=== PATIENT | female | born 1965 | race Caucasian/White ===

== ENCOUNTER 2022-02-27 13:31 | Outpatient (CLI) | payer OTHER, MEDICAID, SELFPAY ==
[2022-02-27 17:22] LABS: Albumin* 3.6 g/dL (3.3-5.0)
[2022-02-27 17:25] LABS: Aspartate Amino Transferase* 27 U/L (12-35); Bilirubin Direct* 0.4 mg/dL (0.0-0.5); Bilirubin Total* 0.5 mg/dL (0.1-1.5); Magnesium* 1.8 mg/dL (1.5-2.6); Total Protein* 5.7 g/dL (6.0-8.3)
[2022-02-27 17:26] LABS: Alanine Aminotransferase* 22 U/L (4-35); Alkaline Phosphatase* 89 U/L (40-150)
[2022-02-27 18:08] LABS: Thyroid Stimulating Hormone* 0.305 uIU/mL (0.270-4.20)
[2022-02-27 18:17] LABS: Vitamin B12* 628 pg/mL (243-894)
[2022-03-03 00:40] LABS: Copper, Serum/Plasma 140.8 ug/dL (80.0-155.0)
[2022-03-03 19:46] LABS: Vitamin K1 1.44 nmol/L (0.22-4.88)
[2022-03-03 22:02] LABS: Vitamin A (Retinol) 0.62 mg/L (0.30-1.20)
[2022-03-05 13:47] LABS: Folate, RBC 1051 ng/mL (>=366)
--- OUTSIDE RECORDS SUMMARY | 2022-03-27 09:21 | XMS_ITS | Continuity of Care Document ---
:1965 Author Organization [facility] ue Address [address] [place] [id number]- Encounter 02/13/22 - 02/14/[address] [address]- Discharge Disposition: Discharged to Home or Self Care Attending Physician: Femi Davis MD Allergies, Adverse Reactions, Alerts Substance Reaction Severity Status morphine1 hives Active Keflex Hives Active 1Per patient, has tolerated Lortab before Assessment and Plan Extracted from: Title: Admission H & P Author: Femi Davis MD Date: 02/14/22 ? #Acute on chronic??hypoxemic??respirato ry failure due to??COPD/emphysema exacerbation -Patient requiring 2 L??and was weaned by emergency room physician??and still had persistent hypoxemia with??saturations??of 88% -Patient reportedly is on 2 L only with activity -Alkalosis noted??and ABG ordered??as h er bicarb was little bit elevated -Patient reportedly was in the middle o f a steroid taper and on a Z-Rafal that she finished -At this time we will start 4 times raheem ly scheduled nebs plus every 4 as needed nebs status post methylprednisolone 125 mg in the??emergency room...??We will start 40 mg??prednisone twice daily -Doxycycline added -Also added??guaifenesin and??Tessalon Perles??scheduled??as well as??azelastine/benzonatate/Claritin -We will get Dr. Resendiz involved as she has pretty advanced??emphysema ?? #History of PE -Continue Xarelto #Hypertension -Pressures appear pretty reasonable -Continue carvedilol at this time -Continue lisinopril -Continue Lasix??for blood pressure and edema control ?? #Chronic pain -Continue cyclobenzaprine and??gabapent in ?? #Psych not otherwise specified -Continue??Abilify/trazodone/duloxetine ?? Diet: ?02/13/22 22:25:00 CDT, Reg ular, Routine GI prophylaxis:??PPI DVT prophylaxis: Xarelto Dispo:??Observation ? Medications albuterol 2.5 mg/3 mL (0.083%) inhalation solution Take 3 mL, Nebul, Q6h, PRN Shortness of Breath Start Date: 02/14/22 Status: Orderedalbuterol HFA 108 mcg/inh inhalation aerosol Take 2 Puff, Inhalation, Q4h, PRN Shortness of Breath Start Date: 02/14/22 Status: OrderedARIPiprazole 10 mg oral tablet Take 0.5 Tab, PO, BID Start Date: 02/14/22 Status: Orderedcarvedilol 3.125 mg oral tablet Take 1 Tab, PO, BID Start Date: 02/14/22 Status: Orderedcyanocobalamin 1000 mcg/ml injectable solution 1,000 mcg, IM, Month ([id number]) Start Date: 02/14/22 Status: Orderedcyclobenzaprine 5 mg oral tablet Take 1 Tab, PO, Bedtime, PRN Muscle Spasms Start Date: 02/14/22 Status: OrderedDaliresp 250 mcg oral tablet Take 1 Tab, PO, QOther Day Start Date: 02/14/22 Status: Ordereddoxycycline hyclate 100 mg oral capsule Take 1 Cap, PO, BID, Started during hospital stay., X 6 Day(s), # 12 Cap, 0 Refill(s), Pharmacy: [facility] #[id number], 172.72, cm, 02/14/22 0:06:00 CDT, Height, 116, kg, 02/14/22 0:06:00 CDT, Weight Start Date: 02/14/22 Stop Date: 02/20/22 Status: OrderedDULoxetine 60 mg oral delayed release capsule Take 1 Cap, PO, BID Start Date: 02/14/22 Status: Orderedfluticasone nasal 0.05 mg/inh spray 2 Henning, Nasal, Daily Start Date: 02/14/22 Status: Orderedfurosemide 20 mg oral tablet Take 1 Tab, PO, Daily Start Date: 02/14/22 Status: Orderedgabapentin 300 mg oral capsule Take 4 Cap, PO, TID Start Date: 02/14/22 Status: OrderedguaiFENesin 600 mg oral tablet, extended release Take 1 Tab, PO, Q12h, Started during hospital stay., X 6 Day(s), # 12 Tab, 0 Refill(s), Pharmacy: [facility] #[id number], 172.72, cm, 02/14/22 0:06:00 CDT, Height, 116, kg, 02/14/22 0:06:00 CDT, Weight Start Date: 02/14/22 Stop Date: 02/20/22 Status: Orderedlisinopril 2.5 mg oral tablet Take 1 Tab, PO, Daily Start Date: 02/14/22 Status: Orderedloratadine 10 mg oral tablet Take 1 Tab, PO, Daily Start Date: 02/14/22 Status: Orderedpramipexole 0.25 mg oral tablet Take 1 Tab, PO, w/bkfst+din Start Date: 02/14/22 Status: Orderedpramipexole 0.75 mg oral tablet Take 1 Tab, PO, Bedtime Start Date: 02/14/22 Status: OrderedpredniSONE 10 mg oral tablet See Instructions, 3 po bid with meals x 4 day, 4 po q am x 4 day, 3 po q amx 4 day , 2 po q am x 4 day, 1 po q am x 4 day, stop, # 64 Tab, 0 Refill(s) Start Date: 02/14/22 Status: Orderedrosuvastatin 5 mg oral tablet Take 1 Tab, PO, Daily Start Date: 02/14/22 Status: OrderedtraZODone 50 mg oral tablet Take 1 Tab, PO, Bedtime, PRN Insomnia/Sleep Start Date: 02/14/22 Status: OrderedTrelegy Ellipta 200 mcg-62.5 mcg-25 mcg/inh inhalation powder 1 Puff, Inhalation, Daily Start Date: 02/14/22 Status: OrderedXarelto 20 mg oral tablet Take 1 Tab, PO, Daily Start Date: 02/14/22 Status: Ordered Mental Status 02/14/22 Level of Consciousness-CAM Alert Orientation-CAM Oriented x 4 Cognitive-CAM Able to follow 3 step comman ds Memory-CAM Intact/Present Behavior/Mood/Affect-CAM Appropriate, Calm, Cooperative Problem List Condition Effective Dates Status Health Status Informant Chronic obstructive pulmonary disease Active (COPD)(Confirmed) Diagnosis Diagnosis Type Effective Dates Health Status Clinical In formant Service At risk for Working 02/14/22 Non-Specified falls Diagnosis Results Laboratory List Name Date Basic Metabolic Panel (BMP (Basic Metabolic Panel)) CBC with Differential 02/14/22 Respiratory Pathogen Panel PCR with COVID-19 (Respirat ory Pathogen Panel PCR 02/13/22 with COVI) Comprehensive Metabolic Panel (CMP (Comprehensive [place] bolic Panel)) 02/13/22 Prothrombin Time (PT w INR) 02/13/22 Sodium Level Most recent to oldest [Reference Range]: 1 Sodium Level [135-145 mEq/L] 139 mEq/L (02/14/22 4:55 AM) Potassium Level Most recent to oldest [Reference Range]: 1 Potassium Level [3.5-5.0 mEq/L] 4.0 mEq/L (02/14/22 4:55 AM) Chloride Level Most recent to oldest [Reference Range]: 1 Chloride Level [100-108 mEq/L] 101 mEq/L (02/14/22 4:55 AM) Carbon Dioxide Level Most recent to oldest [Reference Range]: 1 Carbon Dioxide Level [22-32 mEq/L] 31 mEq/L (02/14/22 4:55 AM) BUN Most recent to oldest [Reference Range]: 1 BUN [10-26 mg/dL] 8 mg/dL *LOW* (02/14/22 4:55 AM) Creatinine Most recent to oldest [Reference Range]: 1 Creatinine [0.4-1.4 mg/dL] 0.5 mg/dL (02/14/22 4:55 AM) Calcium Total Most recent to oldest [Reference Range]: 1 Calcium Total [8.5-10.5 mg/dL] 9.3 mg/dL (02/14/22 4:55 AM) Glucose Level Most recent to oldest [Reference Range]: 1 Glucose Level [70-99 mg/dL] 174 mg/dL *HI* (02/14/22 4:55 AM) Protein Most recent to oldest [Reference Range]: 1 Protein [6.0-8.0 gm/dL] 6.7 gm/dL (02/13/22 8:15 PM) Albumin Level Most recent to oldest [Reference Range]: 1 Albumin Level [3.3-5.2 gm/dL] 3.6 gm/dL (02/13/22 8:15 PM) Bilirubin Total Most recent to oldest [Reference Range]: 1 Bilirubin Total [0.3-1.2 mg/dL] 0.3 mg/dL (02/13/22 8:15 PM) ALT/SGPT Most recent to oldest [Reference Range]: 1 ALT/SGPT [11-54 IU/L] 20 IU/L (02/13/22 8:15 PM) AST/SGOT Most recent to oldest [Reference Range]: 1 AST/SGOT [11-41 IU/L] 23 IU/L (02/13/22 8:15 PM) Alkaline Phosphatase Most recent to oldest [Reference Range]: 1 Alkaline Phosphatase [30-107 IU/L] 82 IU/L (02/13/22 8:15 PM) WBC Count Most recent to oldest [Reference Range]: 1 WBC Count [3.7-11.0 thou/mcL] 5.6 thou/mcL (02/14/22 4:55 AM) Hemoglobin Most recent to oldest [Reference Range]: 1 Hemoglobin [11.7-16.0 gm/dL] 13.8 gm/dL (02/14/22 4:55 AM) Hematocrit Most recent to oldest [Reference Range]: 1 Hematocrit [35-47 %] 43 % (02/14/22 4:55 AM) Platelet Count Most recent to oldest [Reference Range]: 1 Platelet Count [150-400 thou/mcL] 183 thou/mcL (02/14/22 4:55 AM) Prothrombin Time (PT) Most recent to oldest [Reference Range]: 1 Prothrombin Time (PT) [9.4-12.5 Sec] 11.5 Sec 1 (02/13/22 8:15 PM) 1Result Comment: Test Comment: Anticoagulant: NINR Most recent to oldest [Reference Range]: 1 INR [0.8-1.2] 1.0 1 (02/13/22 8:15 PM) 1Result Comment: INR: Standard intensity warfarin therapeutic range: 2.0 - 3.0 High intensity warfarin therapeutic range: 2.5 - 3.5SARS-CoV-2 (micro) Most recent to oldest [Reference Range]: 1 SARS-CoV-2 [Not Detected] Not Detected 1 (02/13/22 8:14 PM) 1Result Comment: Severe Acute Respiratory Syndrome Coronavirus 2 (SARS-CoV-2): Severe Acute Respiratory Syndrome Coronavirus 2 (SARS-CoV-2) was performed on the K121Array Torch. Vital Signs Most recent to oldest [Reference Range]: 1 2 Respiratory Rate [12-18 Br PM] 20 Br PM 20 Br PM *HI* *HI* (02/14/22 3:23 PM) (02/14/22 3:23 PM) Pulse Rate [60-100 BPM] 87 BPM (02/14/22 3:20 PM) Pulse Oximetry [90-100 %] 93 % (02/14/22 3:20 PM) Blood Pressure [90-140/65-90 mmHg] 128/86 mmHg (02/14/22 2:42 PM) Temperature Celsius [36.1-38 Degrees C] 37 Degrees C (02/14/22 2:42 PM) Height 172.72 cm (02/14/22 12:06 AM) Weight 116 kg (02/14/22 12:06 AM) Body Mass Index 38.9 kg/m2 (02/14/22 12:06 AM) Social History Social History Type Response Smoking Status Smoker, current status unkno wn Sex Hospital Course Patient: ERVIN WATSON : 56 years Sex: Female : 1965Associated Diagnoses: NoneAuthor: Audrey OPERATIONS DISPATCHER, Kiarra MProgress NoteSupervising Physician CommentsDocumentationBy: Nurse Practitioner.CommentsDischarge summary:Admission date:February 13ischarge date:February 142Primary Care provider:Patient follows with [place] P[place] javascript web [place]ultants:PulmonologyBrief history of present illness:Bety is a pleasant 56-year-old female patient from [place] who is currently in the area visiting her grandchildren. She presented to the emergency department on February 13, 2022 with worsening shortness of breath and mild chest pain. She does have a history of COPD, emphysema, and PE (she is on Xarelto). Patient reportedly follows with a Dr. Yee at the [facility] in [place]. Patient states that she will be seeing them this upcoming June for follow-up. Chest x-ray revealed a bandlike density over the left lung base which could reflect costochondral calcification, pleural-based calcification, atelectasis, and less likely pneumonia. Follow-up imaging recommended in 3 to 4 weeks. Patient was found to be hypoxic and placed on oxygen per nasal cannula. Baseline oxygen needs are 2 L with activity. Patient was admittedto the medical floor for further evaluation and treatment. Pulmonology to evaluate.I met with Bety this morning on hospital rounds, she was sitting in recliner resting. She reports that she is overall feeling better. She is currently utilizing 2 L of oxygen per nasal cannula at all times. She is inhopes that she can be discharged as soon as possible, as she was planning on driving back to [place] this upcoming Saturday and would like to still spend time with her grandchildren prior to leaving.She did travel alone. Patient also requested that imaging and progress notes be sent to her lung specialist. We will talk with nursing and see if this can be accomplished. Bety denied fever, chills,night sweats, chest pain, abdominal discomfort, constipation, and diarrhea. Continues to get short of breath with activity. Slightly short of breath at rest. No headaches or visual changes. No vertiginous symptoms. No voiding symptoms. No new paresthesias. She denied having any other questions or concerns at this time.Hospital course:1. Acute on chronic hypoxemic respiratory failure secondary to COPDand emphysema exacerbation. Continue doxycycline and prednisone. Also continued scheduled breathing treatments. Carphenazine is Tessalon Perles available. Patient continues to require 2 L of oxygen pernasal cannula at all times. At baseline she utilizes 2 L only with activity. Of note, prior to hospit alization the patient completed a Z-Rafal and was in the middle of a steroid taper. Patient reports that she is feeling slightly better today. Pulmonology to evaluate today.2. History of PE. Continue Xarelto.3. Hypertension. Blood pressures currently well controlled. Continue carvedilol, Lasix, and lisin opril.4. Chronic pain. Continue cyclobenzaprine and gabapentin.5. Psychiatric diagnoses not otherwise specified. Continue Abilify trazodone, and duloxetine.6. Hyperlipidemia. Continue atorvastatin.7. Diet: Regular.8. DVT prophylaxis: Continue ambulation.9. GI prophylaxis: Not indicated at this time.10. CODE STATUS: Full resuscitation.11. Disposition: To be determined. Patient is from [place] and will likely return home at time of discharge. She plans to drive. She will be traveling alone. Patientrequested for imaging and progress notes to be sent with her at time of discharge so she can give this information to her javascript web developer back home.Patient was evaluated by pulmonology early this afternoon and has been cleared for discharge if she is able to pass a 6-minute walk test. She will be discharged home on a prednisone taper, doxycycline, and Mucinex.Physical examination on discharge:Vital signs: Temperature 36.7, heart rate 94, respiratory rate 18, pulse oximetry 98% on 2 L of oxygen per nasal cannula, blood pressure 128/86, weight 116 kg.General: Alert female who does not appear to be in acute distress or toxic.HEENT: Atraumatic, normocephalic. Moist mucous membranes. PERRLA. Intact EOMs.Neck: Soft and supple. No JVD noted.Cardiovascular: Regular rate and rhythm. No murmur auscultated.Lungs: Clear, but diminished to the bilateral lower bases on auscultation. No wheezing, rhonchi, or rales noted. Respirations nonlabored. On oxygen per nasal cannula.Gastrointestinal: Soft and nontender on palpation. Obese. Nondistended. Bowel sounds active x4 quadrants.Musculoskeletal: Trace bilateral lower extremity edema noted. Positive dorsi and plantar flexion bilaterally. Able to move all extremities well.Skin: No rashes or lesions noted.Neurologic: Cranial nerves II through XII appear to be grossly intact.Psychiatric: Alert and oriented x3. Calm and conversant. Mood and affect appropriate.BasicMetabolic PanelSodium Level: 139 mEq/L (02/14/22 04:55:00)Potassium Level: 4 mEq/L (02/14/22 04:55:00)Chloride Level: 101 mEq/L (02/14/22 04:55:00)Carbon Dioxide Level: 31 mEq/L (02/14/22 04:55:00)Anion Gap: 7 mEq/L (02/14/22 04:55:00)Glucose Level: 174 mg/dL High (02/14/22 04:55:00)BUN: 8 mg/dL Low (02/14/22 04:55:00)Creatinine: 0.5 mg/dL (02/14/22 04:55:00)Est CrCl IBW (mL/min)-RX: 129.75 mL/min (02/14/22 04:55:00)Est CrCl AdjBW (mL/min)-RX: 172.07 mL/min (02/14/22 04:55:00)GFR Estimated Non : 110 mL/min/1.73 m2 (02/14/22 04:55:00)GFR Estimated : 127 mL/min/1.73 m2(02/14/22 04:55:00)Calcium Total: 9.3 mg/dL (02/14/22 04:55:00)CBC with DifferentialWBC Count: 5.6 thou/mcL (02/14/22 04:55:00)Red Blood Cell Count: 4.6 million/mcL (02/14/22 04:55:00)Hemoglobin: 13.8 gm/dL (02/14/22 04:55:00)Hematocrit: 43 % (02/14/22 04:55:00)MCV: 93 FL (02/14/22 04:55:00)MCH: 30 Picograms (02/14/22 04:55:00)MCHC: 32 gm/dL (02/14/22 04:55:00)RDW: 13.6 % (02/14/22 04:55:00)Platelet Count: 183 thou/mcL (02/14/22 04:55:00)MPV: 9 FL Low (02/14/22 04:55:00)Neutrophil: 90 % High (02/14/22 04:55:00)Lymphocyte: 8 % Low (02/14/22 04:55:00)Monocyte: 1 % Low (02/14/22 04:55:00)Eosinophil: 0% (02/14/22 04:55:00)Basophil: 0 % (02/14/22 04:55:00)Immature Granulocyte: 0 % (02/14/22 04:55:00)Neutrophil Absolute: 5 thou/mcL (02/14/22 04:55:00)Lymphocyte Absolute: 0.5 thou/mcL Low (02/14/22 04:55:00)Monocyte Absolute: 0.1 thou/mcL Low (02/14/22 04:55:00)Eosinophil Absolute: 0 thou/mcL (02/14/22 04:55:00)Basophil Absolute: 0 thou/mcL (02/14/22 04:55:00)Immature Granulocyte Absolute: 0 thou/mcL(02/14/22 04:55:00)Hepatic PanelALT/SGPT: 20 IU/L (02/13/22 20:15:00)AST/SGOT: 23 IU/L (02/13/22 20:15:00)Bilirubin Total: 0.3 mg/dL (02/13/22 20:15:00)Alkaline phosphatase 82Troponin less than 0.00PIV17PFU 0.5Procalcitonin less than 0.05Sed rate 18Respiratory panel unremarkableDiagnostic data:Chest x-ray on admission:Bandlike density over the left lung base may reflect costochondral calcification, pleural-based calcification, atelectasis and less likely pneumonia. Recommend correlation with prior available imaging. In the absence of prior imaging, recommend radiographic follow-up in 3-4 weeksI personally reviewed the laboratory data and diagnostic data.Discharge status:Stable.Discharge medications:Please see below. ARIPiprazole (ARIPiprazole 10 mg oral tablet) 0.5 Tab = 5 mg By Mouth Twice a day DULoxetine (DULoxetine 60 mg oral delayed release capsule) 1 Cap = 60 mg By Mouth Twice a day GuaiFENesin (guaiFENesin 600 mg oral tablet, extended release) 1 Tab = 600 mg By Mouth Tab, Extended Release every 12 hours x 6 Day(s) Started during hospital stay. Last Dose: 02/14/2022 10:11 PredniSONE (predniSONE 10 mg oral tablet) See Instructions 3 po bid with meals x 4 day, 4 po q am x 4 day, 3 po q amx 4 day, 2 po q am x 4 day, 1 po q am x 4 day, stop Last Dose: 02/14/2022 10:02 Roflumilast (Daliresp 250 mcg oral tablet) TraZODone 50 mg By Mouth Twice a day albuterol (albuterol HFA 108 mcg/inh inhalation aerosol) 2 Puff Inhalation every 4 hours, As Needed Shortness of Breath albuterol (albuterol 2.5 mg/3 mL (0.083%) inhalation solution) carvedilol (carvedilol 3.125 mg oral tablet) 1 Tab = 3.125 mg By Mouth Twice a day cyanocobalamin (cyanocobalamin 1000 mcg/ml injectable solution) 1,000 mcg Intramuscular Monthly - Every 30 Days cyclobenzaprine (cyclobenzaprine 5 mg oral tablet) 1 Tab = 5 mg By Mouth Bedtime, As Needed Muscle Spasms doxycycline (doxycycline hyclate 100 mg oral capsule) 1 Cap = 100 mg By Mouth Capsule Twice a day x 6 Day(s) Started during hospital stay. Last Dose: 02/14/2022 10:04 fluticasone nasal (fluticasone nasal 0.05 mg/inh spray) 2 Henning Nasal (Intranasal) once a day, AsNeeded Sinus/Nasal Congestion fluticasone/umeclidinium/vilanterol (Trelegy Ellipta 200 mcg-62.5 mcg-25 mcg/inh inhalation powder) 1 Puff Inhalation once a day furosemide (furosemide 20 mg oral tablet) 1 Tab = 20 mg By Mouth once a day gabapentin (gabapentin 300 mg oral capsule) 4 Cap = 1,200 mg By Mouth 3 Times a day lisinopril (lisinopril 5 mg oral tablet) 0.5 Tab = 2.5 mg By Mouth once a day loratadine (loratadine 10 mg oral tablet) 1 Tab = 10 mg By Mouth once a day pramipexole (pramipexole 0.75 mg oral tablet) pramipexole (pramipexole 0.25 mg oral tablet) 1 Tab = 0.25 mg By Mouth Twice a day rivaroxaban (Xarelto 20 mg oral tablet) 1 Tab = 20 mg By Mouth with Dinner rosuvastatin (rosuvastatin 5 mg oral tablet) 1 Tab = 5 mg By Mouth once a dayActivity:As toleratedPending laboratories and studies:None.Time spent for discharge and coordination of care:30 minutes.
== END 2022-02-27 13:32 | disposition home or self-care (01) ==
PROVIDERS: PCP Internal Medicine; Visit Provider Internal Medicine
DX: Z00.00 Encounter for general adult medical examination without abnormal findings (principal); E66.9 Obesity, unspecified; G47.00 Insomnia, unspecified; R73.03 Prediabetes; Z98.84 Bariatric surgery status; E87.1 Hypo-osmolality and hyponatremia; M17.12 Unilateral primary osteoarthritis, left knee
CPT/HCPCS: 80076; 82525; 82607; 82728; 82747; 83735; 84443; 84446; 84590; 84597; 84630

== ENCOUNTER 2022-03-10 14:09 | Emergency (ER) | payer MEDICAID, MEDICARE, SELFPAY ==
[2022-03-10 14:17] VITALS: BP 124/76; PULSE 96; RESP 20; TEMP 36.1; O2SAT 97; BMI 38.0
--- NOTE | 2022-03-10 14:29 | CRLHL7_ITS ---
For Patients: As a result of the Century Cures Act, medical imaging exams and procedure reports are released immediately into your electronic medical record. You may view this report before your referring provider. If you have questions, please contact your health care provider. HISTORY: Fall. TECHNIQUE: Right elbow 3 views. COMPARISON: None. FINDINGS: Acute minimally impacted fracture of the neck of the radius. Radial head articular surface appears intact. Joint spaces are maintained. No subluxation. Elbow joint effusion. Lateral humeral epicondyle enthesophyte. IMPRESSION: Acute minimally impacted fracture of the neck of the radius. Dictated by Robert Ball MD @ 03/10/2022 3:12:26 PM (Electronically Signed)
--- NOTE | 2022-03-10 15:09 | ED_ITS ---
HPI - General Adult General Chief complaint: Extremity Pain/Injury, Upper Stated complaint: Fell on Arm Time Seen by Provider: 03/10/22 14:16 Source: patient Mode of arrival: ambulatory Limitations: no limitations History of Present Illness HPI narrative: 56-year-old female with a complex medical history significant for history of DVT, COPD, chronic pain syndrome, obesity, obstructive sleep apnea, anxiety, neurogenic bladder, hypertension, neuro past thick pain, on chronic oxygen therapy comes in today after tripping over her dog and falling on an outstretched hand. She denies hitting her head or losing consciousness. She complains of pain at her elbow. She denies any wrist pain or hand pain. No pain in her shoulder. No neck or chest wall pain. Related Data Home Medications Medication Instructions Recorded Confirmed albuterol sulfate 2.5 mg/3 mL mg INHALATION PRN 02/26/22 02/26/22 (0.083 %) solution for nebulization albuterol sulfate 90 mcg/actuation 2 INHALATION PRN 02/26/22 02/26/22 aerosol inhaler aripiprazole 10 mg tablet 5 mg PO BID 02/26/22 02/26/22 cyanocobalamin (vitamin B-12) 1,000 mcg IM .Every 30 Days ml 02/26/22 02/26/22 1,000 mcg/mL injection solution cyclobenzaprine 5 mg tablet 5 mg PO .Bedtime as needed PRN 02/26/22 02/26/22 duloxetine 60 mg capsule,delayed 60 mg PO BID 02/26/22 02/26/22 release fluticasone fur. 100 mcg-umeclid INHALATION DAILY 02/26/22 02/26/22 62.5 mcg-vilant 25 mcg inhalat.powder furosemide 20 mg tablet 20 mg PO DAILY tab 02/26/22 02/26/22 gabapentin 300 mg capsule 1,200 mg PO TID cap 02/26/22 02/26/22 ipratropium 0.5 mg-albuterol 3 mg 1 ml INHALATION PRN 02/26/22 02/26/22 (2.5 mg base)/3 mL nebulization soln lisinopril 2.5 mg tablet 2.5 mg PO DAILY tab 02/26/22 02/26/22 loratadine 10 mg tablet 10 mg PO DAILY 02/26/22 02/26/22 multivitamin 1 tab PO QAM 02/26/22 02/26/22 pramipexole 0.25 mg tablet 0.25 mg PO BID 02/26/22 02/26/22 rivaroxaban 20 mg tablet 20 mg PO DAILY 02/26/22 02/26/22 rosuvastatin 5 mg tablet 5 mg PO DAILY 02/26/22 02/26/22 trazodone 50 mg tablet 50 - 100 mg PO .Bedtime as needed 02/26/22 02/26/22 PRN tab varenicline 1 mg tablet 1 mg PO BID 02/26/22 02/26/22 ferrous fumarate-vitamin C PO 02/27/22 02/27/22 fluticasone propionate 50 2 INTRANASAL DAILY 02/27/22 02/27/22 mcg/actuation nasal spray,suspension roflumilast 500 mcg tablet 500 mcg PO QDAY 02/27/22 02/27/22 (Daliresp) tramadol 50 mg tablet 50 mg PO PRN 02/27/22 02/27/22 acetaminophen 500 mg tablet 500 mg PO Q6H PRN 03/07/22 03/07/22 (Tylenol Extra Strength) azithromycin 250 mg tablet 250 mg PO DIRECTED PRN tab 03/07/22 03/07/22 calcium carbonate 750 1 tab PO Q2-4H PRN 03/07/22 03/07/22 mg-simethicone 80 mg chewable tablet ([place] Heartburn-Gas) carvedilol 3.125 mg tablet 3.125 mg PO Q12H tab 03/07/22 03/07/22 fluticasone fur. 100 mcg-umeclid 1 inh INHALATION QDAY 03/07/22 03/07/22 62.5 mcg-vilant 25 mcg inhalat.powder (Trelegy Ellipta) prednisone 20 mg tablet 10 mg PO DIRECTED PRN tab 03/07/22 03/07/22 Allergies Allergy/AdvReac Type Severity Reaction Status Date / Time cephalexin Allergy Intermediate Hives Verified 03/07/22 14:23 morphine Allergy Intermediate Hives Verified 03/07/22 14:23 Review of Systems Narrative: Denies any other injury. [facility] Medical History History of drug abuse History of hepatitis C History of suicide attempt (2016) Surgical History Cauda equina syndrome (2001) History of arthroscopy of right knee (09/02/15) History of section (06/23/87) History of cholecystectomy History of cone biopsy of cervix (1987) History of endometrial ablation (01/25/05) History of open reduction and internal fixation (ORIF) procedure (1996) History of tubal ligation (2004) Status post endovenous radiofrequency ablation (RFA) of saphenous vein (07/2017) Social History Smoking Status: Former smoker Do you use any of these nicotine containing products: None Second hand tobacco smoke exposure: No How often do you have a drink containing alcohol: monthly or less AUDIT-C Alcohol total score: 1 Non-prescribed substance use: denies use Little interest or pleasure in doing things: not at all Feeling down, depressed, or hopeless: not at all Exam Narrative: Exam Narrative: Overweight, well-developed patient in no acute distress. Alert and oriented. Answers questions appropriately. Mood and affect are appropriate. Thoughts are goal oriented and rational. No tangential or magical thinking noted. Patient speaks in full sentences without needing to catch their breath. HEENT: Normocephalic atraumatic. Pupils are equally round reactive to light. Extraocular muscles are intact. Conjunctivae are moist without any icterus noted. Extremities: Right upper extremity has normal appearance. She has no tenderness to palpation of the clavicle or shoulder. No tenderness palpation at the humerus. No tenderness palpation of the hand or wrist. She has normal wrist motion with flexion extension without any difficulty. She does have tenderness which is mild over the lateral epicondyle at the elbow. No pain over the olecranon or medial epicondyle. She has about a 15-20 degree decreased range of motion with full flexion and extension on that side with discomfort with movement at the elbow. There is no bruising, abrasions or erythema noted. Const: Vital Signs, click to edit/add: Vital Signs - 24 hr 03/10/22 14:17 Temperature 97.0 F L Pulse Rate [Left P ulse Oximeter] 96 Respiratory Rate 20 Blood Pressure [Le ft Upper Arm] 124/76 Pulse Oximetry 97 Course Course Hospital Course: X-ray was done which showed a radial neck fracture. Vital Signs Vital signs: Initial Vital Signs Temperature 97.0 F L 03/10/22 14:17 Temperature Source Temporal Artery Scan 03/10/22 14:17 Pulse Rate 96 03/10/22 14:17 Respiratory Rate 20 03/10/22 14:17 Blood Pressure 124/76 03/10/22 14:17 Blood Pressure Mean 92 03/10/22 14:17 Blood Pressure Position Sitting 03/10/22 14:17 Pulse Oximetry 97 03/10/22 14:17 Oxygen Delivery Method 03/10/22 14:17 Vital Signs Temperature 97.0 F L 03/10/22 14:17 Pulse Rate 96 03/10/22 14:17 Respiratory Rate 20 03/10/22 14:17 Blood Pressure 124/76 03/10/22 14:17 Pulse Oximetry 97 03/10/22 14:17 Temperature 97.0 F L 03/10/22 14:17 Pulse Rate 96 03/10/22 14:17 Respiratory Rate 20 03/10/22 14:17 Blood Pressure 124/76 03/10/22 14:17 Pulse Oximetry 97 03/10/22 14:17 Medical Decision Making MDM Narrative Medical decision making narrative: 56-year-old female with a radial neck fracture. Patient will be placed in a sling. We discussed daily exercises with flexion and extension. We discussed follow-up with her primary care provider this coming week to evaluate her progress. Patient was agreeable had no other questions. Imaging Data Elbow x-ray: Attestation: I have reviewed the pertinent imaging results. My impression: Sail sign concerning for fracture. Radiologist's impression: FINDINGS: Acute minimally impacted fracture of the neck of the radius. Radial head articular surface appears intact. Joint spaces are maintained. No subluxation. Elbow joint effusion. Lateral humeral epicondyle enthesophyte. IMPRESSION: Acute minimally impacted fracture of the neck of the radius. Discharge Plan Discharge Clinical Impression: Fracture of radial neck Patient Disposition: Home, Self-Care Condition: Stable Additional Instructions: Wear sling at all times. Remove sling of several times per day to do stretching exercises which include stretching the arm all the way out and then bending at the elbow as far as you can do this for 5 to 10 minutes 4-5 times per day. Follow-up with your primary care provider this coming week so they can assess your progress. Okay to take Tylenol as needed for discomfort. Prescriptions: No Action [id number] 100-62.5-25 mcg blister with device inhalation DAILY 0RF duloxetine 60 mg capsule,delayed release(DR/EC) 60 mg PO BID 0RF rosuvastatin 5 mg tablet 5 mg PO DAILY 0RF cyclobenzaprine 5 mg tablet 5 mg PO .Bedtime as needed PRN0RF aripiprazole 10 mg tablet 5 mg PO BID 0RF albuterol sulfate 90 mcg/actuation HFA aerosol inhaler 2 inhalation PRN0RF gabapentin 300 mg capsule 1,200 mg PO TID 0RF cyanocobalamin (vitamin B-12) 1,000 mcg/mL solution 1,000 mcg IM .Every 30 Days 0RF trazodone 50 mg tablet 50 - 100 mg PO .Bedtime as needed PRN0RF albuterol sulfate 2.5 mg /3 mL (0.083 %) solution for nebulization inhalation PRN0RF multivitamin Tablet 1 tab PO QAM 0RF ipratropium-albuterol 0.5 mg-3 mg(2.5 mg base)/3 mL solution for nebulization 1 ml inhalation PRN0RF varenicline 1 mg tablet 1 mg PO BID 0RF loratadine 10 mg tablet 10 mg PO DAILY 0RF furosemide 20 mg tablet 20 mg PO DAILY 0RF pramipexole 0.25 mg tablet 0.25 mg PO BID 0RF lisinopril 2.5 mg tablet 2.5 mg PO DAILY 0RF rivaroxaban 20 mg tablet 20 mg PO DAILY 0RF Rx Instructions: WITH MEAL fluticasone propionate 50 mcg/actuation spray,suspension 2 intranasal DAILY 0RF tramadol 50 mg tablet 50 mg PO PRN0RF ferrous fumarate-vitamin C PO 0RF Daliresp 500 mcg tablet 500 mcg PO QDAY 0RF prednisone 20 mg tablet 10 mg PO DIRECTED PRN0RF Rx Instructions: 40 MG PO DAILY FOR 5 DAYS, THEN 20 MG PO DAILY FOR 5 DAYS, THEN 10 MG PO DAILY FOR 5 DAYS. Trelegy Ellipta 100-62.5-25 mcg blister with device 1 inh inhalation QDAY 0RF carvedilol 3.125 mg tablet 3.125 mg PO Q12H 0RF azithromycin 250 mg tablet 250 mg PO DIRECTED PRN0RF Label Comments: TAKE 2 TABLETS BY MOUTH FOR 1 DAY THEN TAKE 1 TABLET BY MOUTH DAILY FOR 4 DAYS acetaminophen [Tylenol Extra Strength] 500 mg tablet 500 mg PO Q6H PRN0RF [place] Heartburn-Gas 750-80 mg tablet,chewable 1 tab PO Q2-4H PRN0RF Rx Instructions: do not exceed 6 tabs per 24 hrs Follow Up/Referrals: Jazz Michael MD [Primary Care Provider] - Stand Alone [facility]: [facility]
[2022-03-10 15:47] VITALS: RESP 20; TEMP 36.1
== END 2022-03-10 15:58 | disposition home or self-care (01) ==
PROVIDERS: Emergency Provider Family Medicine; PCP Internal Medicine
DX: S52.124A Nondisplaced fracture of head of right radius, initial encounter for closed fracture (principal); W01.0XXA Fall on same level from slipping, tripping and stumbling without subsequent striking against object, initial encounter
CPT/HCPCS: 73080; 99283; 99284

== ENCOUNTER 2022-03-22 20:14 | Emergency (ER) | payer MEDICAID, SELFPAY ==
[2022-03-22 21:10] VITALS: BP 148/91; PULSE 65; RESP 22; TEMP 36.4; O2SAT 98; BMI 38.0
--- NOTE | 2022-03-22 21:35 | CRLHL7_ITS ---
For Patients: As a result of the Cures Act, medical imaging exams and procedure reports are released immediately into your electronic medical record. You may view this report before your referring provider. If you have questions, please contact your health care provider. Indication: Wrist pain, history of elbow fracture 2 weeks ago Technique: None Comparison: None Findings: Bones: Alignment is normal. Tiny osseous densities adjacent to the ulnar styloid process tip Joint spaces: Unremarkable. Soft tissues: Unremarkable. Impression: Tiny osseous densities adjacent to the ulnar styloid process tip representing small cortical fractures of unknown age. Dictated by Karen Dunne MD @ 03/22/2022 10:40:27 PM (Electronically Signed)
--- NOTE | 2022-03-22 21:37 | ED.UPPEXIN ---
HPI - Extremity Injury (Upper) General Chief Complaint: Extremity Pain/Injury, Upper Stated Complaint: Recheck broken RT elbow Time Seen by Provider: 03/22/22 21:26 Source: patient Mode of arrival: ambulatory Limitations: no limitations History of Present Illness HPI narrative: In presents today with concerns with pain just proximal to her right wrist. She has a notable history of a slip and fall in her home resulting in a mildly impacted radial head fracture 2 weeks ago. I do review these ED notes and imaging. She has been placed in a sling but has instructed on range of motion and is not cast as a result. She notes that over the last week she has had increasing pain in the proximal right wrist area. She says that this area was not x-rayed at the original time of the injury. She has been using Tylenol for pain. She should not be using NSAIDs due to Xarelto use and also history of gastric bypass she has been told in the past. She feels like her pain is manageable. She has been recheck prior primary care provider per her report and has been referred to orthopedics but does not have a confirmation of the appointment date and time yet. The elbow she states she is able to move without significant difficulty there is mild pain in the area of fracture but not overly bothersome. She is performing her range of motion exercises frequently as was requested. No new trauma or injury. No numbness or tingling. ROS is negative for other musculoskeletal, neurological or skin changes. Past medical history, surgical history, prior ED notes, imaging, medications and allergies are reviewed and updated. Related Data Home Medications Medication Instructions Recorded Confirmed albuterol sulfate 2.5 mg/3 mL mg inhalation PRN 02/26/22 03/19/22 (0.083 %) solution for nebulization albuterol sulfate 90 mcg/actuation 2 inhalation PRN 02/26/22 03/19/22 aerosol inhaler aripiprazole 10 mg tablet 5 mg PO BID 02/26/22 03/19/22 cyanocobalamin (vitamin B-12) 1,000 mcg IM .Every 30 Days 02/26/22 03/19/22 1,000 mcg/mL injection solution cyclobenzaprine 5 mg tablet 5 mg PO .Bedtime as needed PRN 02/26/22 03/19/22 duloxetine 60 mg capsule,delayed 60 mg PO BID 02/26/22 03/19/22 release fluticasone fur. 100 mcg-umeclid inhalation DAILY 02/26/22 03/19/22 62.5 mcg-vilant 25 mcg inhalat.powder furosemide 20 mg tablet 20 mg PO DAILY 02/26/22 03/19/22 gabapentin 300 mg capsule 1,200 mg PO TID 02/26/22 03/19/22 ipratropium 0.5 mg-albuterol 3 mg 1 ml inhalation PRN 02/26/22 03/19/22 (2.5 mg base)/3 mL nebulization soln lisinopril 2.5 mg tablet 2.5 mg PO DAILY 02/26/22 03/19/22 loratadine 10 mg tablet 10 mg PO DAILY 02/26/22 03/19/22 multivitamin 1 tab PO QAM 02/26/22 03/19/22 pramipexole 0.25 mg tablet 0.25 mg PO BID 02/26/22 03/19/22 rivaroxaban 20 mg tablet 20 mg PO DAILY 02/26/22 03/19/22 rosuvastatin 5 mg tablet 5 mg PO DAILY 02/26/22 03/19/22 trazodone 50 mg tablet 50 - 100 mg PO .Bedtime as needed 02/26/22 03/19/22 PRN varenicline 1 mg tablet 1 mg PO BID 02/26/22 03/19/22 ferrous fumarate-vitamin C PO 02/27/22 03/19/22 fluticasone propionate 50 2 intranasal DAILY 02/27/22 03/19/22 mcg/actuation nasal spray,suspension roflumilast 500 mcg tablet 500 mcg PO QDAY 02/27/22 03/19/22 (Daliresp) acetaminophen 500 mg tablet 500 mg PO Q6H PRN 03/07/22 03/19/22 (Tylenol Extra Strength) calcium carbonate 750 1 tab PO Q2-4H PRN 03/07/22 03/19/22 mg-simethicone 80 mg chewable tablet ([place] Heartburn-Gas) carvedilol 3.125 mg tablet 3.125 mg PO Q12H 03/07/22 03/19/22 Allergies Allergy/AdvReac Type Severity Reaction Status Date / Time cephalexin Allergy Intermediate Hives Verified 03/19/22 08:55 morphine Allergy Intermediate Hives Verified 03/19/22 08:55 PFSH PFS Medical History History of drug abuse History of hepatitis C History of suicide attempt (2016) Surgical History Cauda equina syndrome (2001) History of arthroscopy of right knee (09/02/15) History of section (06/23/87) History of cholecystectomy History of cone biopsy of cervix (1987) History of endometrial ablation (01/25/05) History of open reduction and internal fixation (ORIF) procedure (1996) History of tubal ligation (2004) Status post endovenous radiofrequency ablation (RFA) of saphenous vein (07/2017) Social History Smoking Status: Former smoker Do you use any of these nicotine containing products: None Second hand tobacco smoke exposure: No How often do you have a drink containing alcohol: monthly or less AUDIT-C Alcohol total score: 1 Non-prescribed substance use: denies use Little interest or pleasure in doing things: not at all Feeling down, depressed, or hopeless: not at all Exam Const: Vital Signs, click to edit/add: Vital Signs - 24 hr 03/22/22 21:10 Temperature 97.6 F Pulse Rate [Pulse Oximeter] 65 Respiratory Rate 22 Blood Pressure [Le ft Upper Arm] 148/91 H Pulse Oximetry 98 Documenting provider has reviewed patient's vital signs: yes Common normals: no apparent distress General appearance: cooperative HENMT: Common normals: normocephalic Head and scalp: normocephalic Eye: Common normals: conjunctivae normal General eye: normal appearance of both eyes Conjunctiva: conjunctiva(e) normal Resp: Common normals: normal respiratory effort Effort & inspection: able to speak in complete sentences Cardio: Common normals: regular rate, regular rhythm and peripheral pulses 2+ throughout Rate: regular rate Rhythm: regular rhythm Peripheral pulses: pulses 2+ throughout Extremity: Other: The right shoulder has normal range of motion. The right elbow has a mild effusion in the area of question along the radial head. She can extend to about 170? without significant pain. The area in question is the proximal right wrist which does not show any signs of deformity. There is some very mild point bony tenderness only. There is no crepitus. The wrist has normal range of motion on the right side normal strength in the fingers. Normal sensation. Psych: Common normals: speech normal Attitude: engaged Speech: normal speech Insight: insight good Judgement: judgment good Skin: Common normals: no rashes or lesions noted General skin exam: no rashes or lesions noted Course Course Hospital Course: X-ray findings reviewed, per my interpretation no signs of fracture. Suspect referred pain from elbow fracture. Discussed with patient she declined pain medication at this time Vital Signs Vital signs: Initial Vital Signs Temperature 97.6 F 03/22/22 21:10 Temperature Source Temporal Artery Scan 03/22/22 21:10 Pulse Rate 65 03/22/22 21:10 Pulse Rhythm 03/22/22 21:10 Respiratory Rate 22 03/22/22 21:10 Blood Pressure 148/91 H 03/22/22 21:10 Blood Pressure Mean 110 03/22/22 21:10 Blood Pressure Position Supine 03/22/22 21:10 Pulse Oximetry 98 03/22/22 21:10 Vital Signs Temperature 97.6 F 03/22/22 21:10 Pulse Rate 65 03/22/22 21:10 Respiratory Rate 22 03/22/22 21:10 Blood Pressure 148/91 H 03/22/22 21:10 Pulse Oximetry 98 03/22/22 21:10 Temperature 97.6 F 03/22/22 21:10 Pulse Rate 65 03/22/22 21:10 Respiratory Rate 22 03/22/22 21:10 Blood Pressure 148/91 H 03/22/22 21:10 Pulse Oximetry 98 03/22/22 21:10 MDM - Extremity Injury (Upper) Medical Records Attestation: I reviewed the patient's medical records. Discharge Plan Discharge Clinical Impression: Pain in wrist Patient Disposition: Home, Self-Care Additional Instructions: The pain your experiencing in the forearm area is likely referred pain from the elbow. These are both along the radius which is the bone that was slightly fractured in your elbow. It is not unusual for the pain to travel a little bit along that circuit but is not a sign of complication. X-ray of the wrist was normal today. As we discussed, continue Tylenol and ice to the elbow as needed. If you have not heard from Dr. Michael office within the next few days, please call to confirm that the orthopedic appointment has been set up appropriately. Activity Level: Activity as Tolerated Activity Detail: Continue use of the sling but removing the arm from the sling at least every 2 hours while awake to perform [id number] exercises of elbow. Diet Detail: No changes from previous Prescriptions: No Action [id number] 100-62.5-25 mcg blister with device inhalation DAILY duloxetine 60 mg capsule,delayed release(DR/EC) 60 mg PO BID rosuvastatin 5 mg tablet 5 mg PO DAILY cyclobenzaprine 5 mg tablet 5 mg PO .Bedtime as needed PRN aripiprazole 10 mg tablet 5 mg PO BID albuterol sulfate 90 mcg/actuation HFA aerosol inhaler 2 inhalation PRN gabapentin 300 mg capsule 1,200 mg PO TID cyanocobalamin (vitamin B-12) 1,000 mcg/mL solution 1,000 mcg IM .Every 30 Days trazodone 50 mg tablet 50 - 100 mg PO .Bedtime as needed PRN albuterol sulfate 2.5 mg /3 mL (0.083 %) solution for nebulization inhalation PRN multivitamin Tablet 1 tab PO QAM ipratropium-albuterol 0.5 mg-3 mg(2.5 mg base)/3 mL solution for nebulization 1 ml inhalation PRN varenicline 1 mg tablet 1 mg PO BID loratadine 10 mg tablet 10 mg PO DAILY furosemide 20 mg tablet 20 mg PO DAILY pramipexole 0.25 mg tablet 0.25 mg PO BID lisinopril 2.5 mg tablet 2.5 mg PO DAILY rivaroxaban 20 mg tablet 20 mg PO DAILY Rx Instructions: WITH MEAL fluticasone propionate 50 mcg/actuation spray,suspension 2 intranasal DAILY ferrous fumarate-vitamin C PO Daliresp 500 mcg tablet 500 mcg PO QDAY carvedilol 3.125 mg tablet 3.125 mg PO Q12H acetaminophen [Tylenol Extra Strength] 500 mg tablet 500 mg PO Q6H PRN [place] Heartburn-Gas 750-80 mg tablet,chewable 1 tab PO Q2-4H PRN Rx Instructions: do not exceed 6 tabs per 24 hrs Follow Up/Referrals: Jazz Michael MD [Primary Care Provider] - Stand Alone Forms: [facility] Info Instructions
== END 2022-03-22 23:22 | disposition home or self-care (01) ==
LOC: ED 23:05
PROVIDERS: Emergency Provider Family Medicine; PCP Internal Medicine
DX: M25.531 Pain in right wrist (principal)
CPT/HCPCS: 73110; 99283

== ENCOUNTER 2022-04-18 10:00 | Outpatient (RCR) | payer MEDICAID, SELFPAY ==
--- NOTE | 2022-04-11 16:45 | OT.OPOE ---
OT Outpatient Ortho Eval OT Outpatient Ortho Eval Start: 04/11/22 11:51 Freq: Status: Active Protocol: Document 04/11/22 16:13 LCN (Rec: 04/11/22 16:31 LCN [id number]) E-signed By Karen Isabel, OTR/L, CLT OT OP Ortho Eval Details Type Type Eval Complexity Low Outpatient History/Precautions Insurance Information Insurance Information Medicare B Current Condition/Medical Diagnosis Referring Provider Juanito Mcbride PA-C Treatment Diagnosis R medial Elbow and wrist pain, ROM loss p FOOSH Rad head displaced fracture Date of Onset 03/09/22 Medical Contraindications Depression,HTN,Metal Implants, Respiratory,Arthritis Other Contraindications Hx of gastric bypass. 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 [employer] Helps care for grandchildren 15,9,6 (for local daughter.) Fitness Pulmonary rehab 3days per week for the next 6weeks. Has lost 35 lbs. Oriented Mental Status No Concerns Mental Status Comments Pt will w known history of mental health needs, currently well maintained. Ortho Subjective Subjective Subjective Hurts to write, hold pen, push R UE thorugh a sleeve, use R thumb to text, pericare, doing dishes. Pain Assessment Pain Present Pain Present Pain Reported Location R Elbow, Wrist Description Tightness,Dull, Achy,Throbbing Intensity 6 Goniometric Comments Goniometric Comments Goniometric Comments EL FL to 110 AROM. Lacking 5 degrees SONALI. Supination 65 AROM (8 /2 / pn at distal radius) and 75 AAROM. Pronation WNL. 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 Edema Assessment Additional Information Comments Tissue texture/Edema-- gritty texture surrounding radial head, CET, muscle bulk. mild pocket of edema at dorsal wrist, radial/CMC area. OT Objective Data Hand Hand Dominance Right Sensation Sensation Assessment Summary Comments No numbness or tingling noted. Upper Extremity Special Tests Degenerative Arthritis Hand Trapeziometacarpal Joint Grind Test Positive Right OT Problems Problems Problems Decreased Strength,Decreased Range of Motion,Decreased Dexterity,Decreased Fine Motor ,Lifting,Gripping,Pinching Problems Comments rose hygiene Other Problems Writing,Opening Containers, Computer,Fasteners Assessment Assessment Assessment Given Sarah Jay's s diagnosis of R displaced radius neck fracture with wrist bone contusion, and noted?difficulty with edema, pain, ROM and strength loss of R hand/wrist/elbow, she would benefit from skilled OT to address these areas. Occupational Therapy Treatment Plan - OP Potential Rehabilitation Potential Excellent Set Goals Goals Set with Patient Yes Goals Goals In 10 weeks, pt will demonstrate:? 1) Decreased pn to <2/10 80% of the time with sustained gripping, carrying groceries, pericare and writing. 2) I HEP for stretching, gradual strengthening and self mgmt strategies. 3) improved R telecommunications sales representative strength by 15# and pinch by10# with R thumb pain < 1/10. Progress set Treatment Plan Treatment Plan Evaluation,Edema Control, Iontophoresis,Joint Mobilization,Manual Therapy, Ultrasound,Therapeutic Exercise,Self-Care/Home Management,Caregiver Training, Education Expected Frequency 1-2x Week Expected Duration 8-10 Weeks Certification Certification I Certify That: Therapy Services Provided, Therapy Plan Established, Therapy Plan Reviewed
--- NOTE | 2022-06-05 16:26 | OT.OPODN ---
OT Outpatient Ortho Daily Note OT Outpatient Ortho Daily Note Start: 04/11/22 11:51 Freq: Status: Active Protocol: Document 06/05/22 16:21 LCN (Rec: 06/05/22 16:26 LCN [id number]) E-signed By Karen Isabel OTR/L, CLT Type of Note Type of Note Type of Note Daily Note Visit Number 2 Insurance Information Insurance Information Medicare B Outpatient History/Precautions Current Condition/Medical Diagnosis Referring Provider Juanito Mcbride PA-C Treatment Diagnosis R medial Elbow and wrist pain, ROM loss p FOOSH Rad head displaced fracture Date of Onset 03/09/22 Medical/Functional History Medical History Reviewed Yes Social History Employment Status Volunteer 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 [employer] Helps care for grandchildren 15,9,6 (for local daughter.) Fitness Pulmonary rehab 3days per week for the next 6weeks. Has lost 35 lbs. Oriented Mental Status No Concerns Mental Status Comments Pt will w known history of mental health needs, currently well maintained. Ortho Subjective Subjective Subjective As of 04/18/22, pt doing much better, able to clean after toileting, wash dishes. Grocery shop and put away groceries. Making bed / changing linens is challenging . Wears splint to go out, starting to forget at times. Still doing Pulm Rehabd 3x/ week. Family is coming to town soon. Pain Assessment Pain Present Pain Present Pain Reported Location R Elbow, Wrist Description Tightness,Dull, Achy,Throbbing Intensity 2 OT OP Daily Ortho Note/Assessment Self-Care/Home Management Self-Care/Home Management Minutes ( 0 minutes) Self-Care/Home Management Comments edema mgmt plan working well w tetrgrip, using rice pack / cold when UE aches, tyelnol also. Therapeutic Exercise Therapeutic Exercise Minutes (minutes) 0 Therapeutic Exercise Comments On 04/18/22-- Upgraded HEP with weight shifting 25/75, 50/50, 75/25 x 5 sec holds x 10 reps , 1# WR FL, WR EX and hammer turns. WEll tolerated, to do 1-2 x/day,. Aching post work out okay but ex w pain is not and she should hold back if painful. Manual Therapy Manual Therapy Minutes (minutes) 0 Manual Therapy Comments On 04/18/22-- IASTM for R forearm muscle bulk, as need to to reduce gritty texture of tissue in surrounding elbow/ impact area, flexor and extensor muscle groups, CMC of R TH. Large nodule noted at R CET. . Improved mobility after STM, allowing for upgrade of HEP. Pt guided to wear splint less and less. Can return if UE feeling tired , heavy as needed. Goniometric Comments Goniometric Comments Goniometric Comments EL FL to 110 AROM. Lacking 5 degrees SONALI. Supination 65 AROM (8 08/20 pn at distal radius) and 75 AAROM. Pronation WNL. WR EX is 70 , WR FL 90 UD %), all WNL except RD 15 ( limited by R distal radius, medial palmar aspect) CMC pain) (Kettle Girl, pinch not tested d/t fx ) Is able to carry 5-10 pound items at waist to waist height, only. Edema Assessment Additional Information Comments Tissue texture/Edema-- gritty texture surrounding radial head, CET, muscle bulk. mild pocket of edema at dorsal wrist, radial/CMC area. OT Objective Data Hand Hand Dominance Right Sensation Sensation Assessment Summary Comments No numbness or tingling noted. Upper Extremity Special Tests Degenerative Arthritis Hand Trapeziometacarpal Joint Grind Test Positive Right OT Problems Problems Problems Decreased Strength,Decreased Range of Motion,Decreased Dexterity,Decreased Fine Motor ,Lifting,Gripping,Pinching Problems Comments rose hygiene Other Problems Writing,Opening Containers, Computer,Fasteners Patient Potential Excellent Assessment Assessment Assessment Pt is doing better with use of RUE, improved stamina with managing stairs per pul rehab , feeling better. Given Sarah Misty's s diagnosis of R displaced radius neck fracture with wrist bone contusion, and noted?difficulty with edema, pain, ROM and strength loss of R hand/wrist/elbow, she would benefit from skilled OT to address these areas. Occupational Therapy Treatment Plan - OP Potential Rehabilitation Potential Excellent Set Goals Goals Set with Patient Yes Goals Goals In 10 weeks, pt will demonstrate:? 1) Decreased pn to <2/10 80% of the time with sustained gripping, carrying groceries, pericare and writing. 2) I HEP for stretching, gradual strengthening and self mgmt strategies. 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 Progress set Treatment Plan Treatment Plan Evaluation,Edema Control, Iontophoresis,Joint Mobilization,Manual Therapy, Ultrasound,Therapeutic Exercise,Self-Care/Home Management,Caregiver Training, Education Expected Frequency 1-2x Week Expected Duration 8-10 Weeks Comment Summary Add contrast baths, cont IASTM /joint mobilization OT Treatment Minutes Treatment Minutes Untimed Treatment Minutes 35 Timed Treatment Minutes 40 Total Treatment Minutes 40 Occupational Therapy Billing Units Billing Units Manual Therapy 0 Self Care/Home Management 0 Therapeutic Exercise 0 Certification Certification I Certify That: Therapy Services Provided, Therapy Plan Established, Therapy Plan Reviewed Discharge Note Discharge Note Discharge Summary Pt seen for 2 visits fof OT and did not return for further sessions. No d/c evaluation available. Initial Primary Functional Limitations/ diagnosis of R displaced Concerns radius neck fracture with wrist bone contusion, and noted?difficulty with edema, pain, ROM and strength loss of R hand/wrist/elbow, after tripping with hand out stretched over her dog. Interventions Provided During Treatment Manual Therapy,Therapeutic Exercise,Self Care/Home Management Recommendations/Reason for Discharge Did Not Return to Therapy
== END 2023-03-06 11:12 | disposition home or self-care (01) ==
PROVIDERS: PCP Internal Medicine; Visit Provider Physician Assistant Surgical
DX: S52.13 Fracture of neck of radius (principal); Z51.89 Encounter for other specified aftercare
CPT/HCPCS: 97110; 97140; 97165; 97535; X5282

== ENCOUNTER 2022-06-05 14:47 | Outpatient (CLI) | payer MEDICAID, SELFPAY ==
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
== END 2022-06-05 14:48 | disposition home or self-care (01) ==
LOC: INJ CL 14:47
PROVIDERS: PCP Internal Medicine; Visit Provider Family Medicine
DX: M17.12 Unilateral primary osteoarthritis, left knee (principal); M25.562 Pain in left knee
CPT/HCPCS: 64454

== ENCOUNTER 2022-07-10 11:54 | Outpatient (CLI) | payer OTHER, SELFPAY ==
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
== END 2022-07-10 11:55 | disposition home or self-care (01) ==
LOC: INJ CL 11:55
PROVIDERS: PCP Internal Medicine; Visit Provider Family Medicine
DX: M17.12 Unilateral primary osteoarthritis, left knee (principal); G89.29 Other chronic pain; M25.562 Pain in left knee
CPT/HCPCS: 64624; J2250; J3010

== ENCOUNTER 2022-08-14 09:36 | Outpatient (CLI) | payer OTHER, SELFPAY | END 2022-08-14 09:37 | disposition home or self-care (01) | LOC: AMB 08-17 09:30 | PROVIDERS: PCP Internal Medicine; Visit Provider Family Medicine | DX: R06.09 Other forms of dyspnea (principal) | CPT/HCPCS: A0425; A0427 ==

== ENCOUNTER 2022-08-14 10:00 | Emergency (ER) | payer OTHER, SELFPAY ==
[2022-08-14] VITALS (24 sets, daily range): BP systolic 95–142; BP diastolic 72–92; PULSE 69–93; RESP 20–32; TEMP 36; O2SAT 86–99; BMI 41.1
--- NOTE | 2022-08-14 10:27 | ED_ITS ---
HPI - General Adult General Time Seen by Provider: 10: Date Seen: 08/14/22 Chief complaint: Shortness of Breath/Dyspnea Stated complaint: Difficulty breathing Time Seen by Provider: 08/14/22 10:22 Source: patient, EMS and RN notes reviewed Mode of arrival: EMS Limitations: no limitations History of Present Illness HPI narrative: 56-year-old female with history of COPD presents with shortness of breath today. Patient reports that she has had upper respiratory symptoms with cough and sinus congestion for 3 or 4 days. This morning, woke up short of breath and b ecame anxious which made her more short of breath. She did to albuterol nebulizer treatments at home and still felt short of breath so came to the emergency department. She denies chest pain, leg swelling, nausea, vomiting, or diarrhea. Positive COVID in June. Related Data Home Medications Medication Instructions Recorded Confirmed albuterol sulfate 2.5 mg/3 mL mg inhalation PRN 02/26/22 06/21/22 (0.083 %) solution for nebulization albuterol sulfate 90 mcg/actuation 2 inhalation PRN 02/26/22 06/21/22 aerosol inhaler aripiprazole 10 mg tablet 5 mg PO BID 02/26/22 06/21/22 cyanocobalamin (vitamin B-12) 1,000 mcg IM .Every 30 Days 02/26/22 06/21/22 1,000 mcg/mL injection solution cyclobenzaprine 5 mg tablet 5 mg PO .Bedtime as needed PRN 02/26/22 06/21/22 duloxetine 60 mg capsule,delayed 60 mg PO BID 02/26/22 06/21/22 release fluticasone fur. 100 mcg-umeclid inhalation DAILY 02/26/22 06/21/22 62.5 mcg-vilant 25 mcg inhalat.powder furosemide 20 mg tablet 20 mg PO DAILY 02/26/22 06/21/22 gabapentin 300 mg capsule 1,200 mg PO TID 02/26/22 06/21/22 ipratropium 0.5 mg-albuterol 3 mg 1 ml inhalation PRN 02/26/22 06/21/22 (2.5 mg base)/3 mL nebulization soln lisinopril 2.5 mg tablet 2.5 mg PO DAILY 02/26/22 06/21/22 loratadine 10 mg tablet 10 mg PO DAILY 02/26/22 06/21/22 multivitamin 1 tab PO QAM 02/26/22 06/21/22 pramipexole 0.25 mg tablet 0.25 mg PO BID 02/26/22 06/21/22 rosuvastatin 5 mg tablet 5 mg PO DAILY 02/26/22 06/21/22 trazodone 50 mg tablet 50 - 100 mg PO .Bedtime as needed 02/26/22 06/21/22 PRN varenicline 1 mg tablet 1 mg PO BID 02/26/22 06/21/22 ferrous fumarate-vitamin C PO 02/27/22 06/21/22 fluticasone propionate 50 2 intranasal DAILY 02/27/22 06/21/22 mcg/actuation nasal spray,suspension roflumilast 500 mcg tablet 500 mcg PO QDAY 02/27/22 06/21/22 (Daliresp) acetaminophen 500 mg tablet 500 mg PO Q6H PRN 03/07/22 06/21/22 (Tylenol Extra Strength) calcium carbonate 750 1 tab PO Q2-4H PRN 03/07/22 06/21/22 mg-simethicone 80 mg chewable tablet (Solange-Axtell Heartburn-Gas) carvedilol 3.125 mg tablet 3.125 mg PO Q12H 03/07/22 06/21/22 Previous Rx's Medication Instructions Recorded rivaroxaban 20 mg tablet 20 mg PO DAILY #90 tabs 04/26/22 Allergies Allergy/AdvReac Type Severity Reaction Status Date / Time cephalexin Allergy Intermediate Hives Verified 06/21/22 16:31 morphine Allergy Intermediate Hives Verified 06/21/22 16:31 Review of Systems Status of ROS: Reports: 10 or more systems reviewed and unremarkable except as noted in History and below [facility] Medical History History of drug abuse History of hepatitis C History of suicide attempt (2016) Surgical History Cauda equina syndrome (2001) History of arthroscopy of right knee (09/02/15) History of section (06/23/87) History of cholecystectomy History of cone biopsy of cervix (1987) History of endometrial ablation (01/25/05) History of open reduction and internal fixation (ORIF) procedure (1996) History of tubal ligation (2004) Status post endovenous radiofrequency ablation (RFA) of saphenous vein (07/2017) Social History Smoking Status: Former smoker Do you use any of these nicotine containing products: None Second hand tobacco smoke exposure: Yes How often do you have a drink containing alcohol: monthly or less How many standard drinks containing alcohol do you have on a typical day: 1 or 2 How often do you have six or more drinks on one occasion: Never AUDIT-C Alcohol total score: 1 Non-prescribed substance use: denies use Little interest or pleasure in doing things: not at all Feeling down, depressed, or hopeless: not at all service: No Exam Narrative: Exam Narrative: General: Well-developed and well-nourished, no acute distress Head: Atraumatic and normocephalic Eyes: Pupils are equal reactive, extraocular motions intact, conjunctiva clear ENT: External nose and ears are normal, posterior pharynx without erythema or exudate Neck: No midline cervical tenderness, full spontaneous range of motion the neck, trachea midline, no adenopathy Heart: Regular rate and rhythm no murmurs or thrills Lungs: Diminished breath sounds bilaterally withexpiratory wheezes Abdomen: Soft, nontender, nondistended with active bowel sounds Musculoskeletal: No tenderness, deformity, or edema Neurologic: Awake, alert, and oriented x3, no gross focal neurologic deficits, cranial nerves intact as tested Psych: Mood and affect are appropriate Skin: No rashes Const: Vital Signs, click to edit/add: Vital Signs - 24 hr 08/14/22 10:14 08/14/22 11:03 08/14/22 10:29 Temperature 96.8 F L Pulse Rate 93 Pulse Rate [Right Pulse Oximeter] 89 Respiratory Rate 32 H 24 Blood Pressure 123/82 Blood Pressure [Ri ght Upper Arm] 122/74 Pulse Oximetry 86 L 94 92 Oxygen Delivery Me thod Room Air Nasal Cannula Oxygen Flow Rate 2 2 08/14/22 10:30 08/14/22 10:32 08/14/22 10:45 Temperature Pulse Rate 88 86 83 Pulse Rate [Right Pulse Oximeter] Respiratory Rate Blood Pressure 95/82 Blood Pressure [Ri ght Upper Arm] Pulse Oximetry 93 93 93 Oxygen Delivery Me thod Oxygen Flow Rate 2 2 2 08/14/22 11:00 08/14/22 11:02 08/14/22 11:03 Temperature Pulse Rate 80 75 76 Pulse Rate [Right Pulse Oximeter] Respiratory Rate Blood Pressure 100/72 Blood Pressure [Ri ght Upper Arm] Pulse Oximetry 99 98 94 Oxygen Delivery Me thod Oxygen Flow Rate 2 2 2 08/14/22 11:15 08/14/22 11:30 08/14/22 11:32 Temperature Pulse Rate 77 75 76 Pulse Rate [Right Pulse Oximeter] Respiratory Rate Blood Pressure 123/88 Blood Pressure [Ri ght Upper Arm] Pulse Oximetry 95 93 92 Oxygen Delivery Me thod Oxygen Flow Rate 2 2 2 08/14/22 11:45 08/14/22 12:00 08/14/22 12:02 Temperature Pulse Rate 73 69 71 Pulse Rate [Right Pulse Oximeter] Respiratory Rate Blood Pressure 127/88 Blood Pressure [Ri ght Upper Arm] Pulse Oximetry 95 94 95 Oxygen Delivery Me thod Oxygen Flow Rate 2 2 08/14/22 12:15 Temperature Pulse Rate 70 Pulse Rate [Right Pulse Oximeter] Respiratory Rate Blood Pressure Blood Pressure [Ri ght Upper Arm] Pulse Oximetry 94 Oxygen Delivery Me thod Oxygen Flow Rate Course Course Hospital Course: Patient seen and examined, prior records reviewed. Patient with history of COPD, cough and runny nose for couple of days now increased shortness of breath today. On initial exam, hypoxia and tachypnea. At the time of my exam, decreased air movement bilaterally with expiratory wheezes. Concern for influenza, patient with lack COVID. She is currently anticoagulated has no chest pain, pulmonary embolism possible but less likely. DuoNeb is ordered along with labs and chest x-ray. Reevaluation(s) Reevaluation #1: Chest x-ray negative for any acute findings. Labs demonstrate normal CBC findings, venous gas with pCO2 of 59 but pH of 7.37 so this likely is chronic. Basic panel is reassuring, COVID and flu are negative. Time: 12:19 Reevaluation #2: Patient recheck, she is feeling better. Oxygen turned down and will make sure she does not become hypoxic and short of breath again. Time: 12:50 Reevaluation #3: Oxygen saturations 90-93% on room air, still feels okay and ambulated department without difficulty. Time: 13:15 Vital Signs Vital signs: Initial Vital Signs Temperature 96.8 F L 08/14/22 10:14 Temperature Source Temporal Artery Scan 08/14/22 10:14 Pulse Rate 89 08/14/22 10:14 Respiratory Rate 32 H 08/14/22 10:14 Blood Pressure 122/74 08/14/22 10:14 Blood Pressure Mean 90 08/14/22 10:14 Blood Pressure Position Sitting 08/14/22 10:14 Pulse Oximetry 86 L 08/14/22 10:14 Oxygen Delivery Method 08/14/22 10:14 Vital Signs Temperature 96.8 F L 08/14/22 10:14 Pulse Rate 89 08/14/22 10:14 Respiratory Rate 32 H 08/14/22 10:14 Blood Pressure 122/74 08/14/22 10:14 Pulse Oximetry 86 L 08/14/22 10:14 Oxygen Delivery Method 08/14/22 10:14 Temperature 96.8 F L 08/14/22 10:14 Pulse Rate 70 08/14/22 12:15 Respiratory Rate 24 08/14/22 11:03 Blood Pressure 127/88 08/14/22 12:02 Pulse Oximetry 94 08/14/22 12:15 Oxygen Delivery Method 08/14/22 11:03 Oxygen Flow Rate 2 08/14/22 12:00 Medical Decision Making Medical Records Medical records reviewed: Yes I reviewed the patient's medical records Lab Data Lab results reviewed: Yes I reviewed the patient's lab results Labs: Lab Results 08/14/22 08/14/22 08/14/22 Range/Units 10:55 11:27 11:27 WBC 5.14 (4.50-11.00) K/uL RBC 4.33 (4.00-5.20) m/uL Hgb 12.1 (12.0-16.0) gm/dL Hct 38.3 (33.0-51.0) % MCV 89 (80-100) fL MCH 28 (26-34) pg MCHC 32 (32-36) gm/dL RDW Coeff of Sulma 14.3 (11.5-15.5) % Plt Count 201 (140-440) K/uL Neut % (Auto) 80.2 H (42.0-72.0) % Lymph % (Auto) 9.1 L (20-44) % [place] % (Auto) 8.0 (0.0-11.0) % Eos % (Auto) 2.1 (0.0-7.0) % Baso % (Auto) 0.6 (0.0-3.0) % Neut # (Auto) 4.10 (1.7-7.0) K/uL Lymph # (Auto) 0.50 L (0.90-2.90) K/uL [place] # (Auto) 0.40 (0.00-0.90) K/UL Eos # (Auto) 0.11 (0.00-0.50) K/uL Baso # (Auto) 0.03 (0.00-0.30) K/uL VBG pH (7.32-7.43) VBG pCO2 (40-50) mmHG VBG pO2 (25-47) mmHG VBG HCO3 (21-28) mmol/L Sodium 137 (135-149) mmol/L Potassium 4.1 (3.6-5.1) mmol/L Chloride 100 (96-114) mmol/L Carbon Dioxide 31 (20-32) mmol/L BUN 10 (7-30) mg/dL Creatinine 0.5 (0.5-1.5) mg/dL Estimated Creat Clear 129.75 Estimated GFR 111 ml/min Glucose 130 H (60-115) mg/dL Calcium 8.2 L (8.4-10.6) mg/dL SARS-CoV-2 (PCR) Negative SARS-CoV-2 (Negative) Influenza Type A (PCR) Negative PCR FLU A (Negative) Influenza Type B (PCR) Negative PCR FLU B (Negative) RSV (PCR) Negative PCR RSV (Negative) 08/14/22 Range/Units 11:27 WBC (4.50-11.00) K/uL RBC (4.00-5.20) m/uL Hgb (12.0-16.0) gm/dL Hct (33.0-51.0) % MCV (80-100) fL MCH (26-34) pg MCHC (32-36) gm/dL RDW Coeff of Sulma (11.5-15.5) % Plt Count (140-440) K/uL Neut % (Auto) (42.0-72.0) % Lymph % (Auto) (20-44) % [place] % (Auto) (0.0-11.0) % Eos % (Auto) (0.0-7.0) % Baso % (Auto) (0.0-3.0) % Neut # (Auto) (1.7-7.0) K/uL Lymph # (Auto) (0.90-2.90) K/uL [place] # (Auto) (0.00-0.90) K/UL Eos # (Auto) (0.00-0.50) K/uL Baso # (Auto) (0.00-0.30) K/uL VBG pH 7.377 (7.32-7.43) VBG pCO2 59 H (40-50) mmHG VBG pO2 42.5 (25-47) mmHG VBG HCO3 35 H (21-28) mmol/L Sodium (135-149) mmol/L Potassium (3.6-5.1) mmol/L Chloride (96-114) mmol/L Carbon Dioxide (20-32) mmol/L BUN (7-30) mg/dL Creatinine (0.5-1.5) mg/dL Estimated Creat Clear Estimated GFR ml/min Glucose (60-115) mg/dL Calcium (8.4-10.6) mg/dL SARS-CoV-2 (PCR) (Negative) Influenza Type A (PCR) (Negative) Influenza Type B (PCR) (Negative) RSV (PCR) (Negative) Imaging Data Chest x-ray: Attestation: I have reviewed the pertinent imaging results. My impression: No acute infiltrate or effusion Discharge Plan Discharge Clinical Impression: Acute upper respiratory infection, Acute exacerbation of chronic obstructive pulmonary disease Patient Disposition: Home, Self-Care Condition: Improved Instructions: COPD (Chronic Obstructive Pulmonary Disease) (DC) Additional Instructions: Continue nebulizer treatments, you may need to use these every 2 hours depending on how your feeling. Take prednisone as prescribed starting tomorrow. Follow- up with your primary care doctor in 2-3 days per Prescriptions: No Action waydqdwtlom-ndingzzhc-folfqzzp 100-62.5-25 mcg blister with device inhalation DAILY duloxetine 60 mg capsule,delayed release(DR/EC) 60 mg PO BID rosuvastatin 5 mg tablet 5 mg PO DAILY cyclobenzaprine 5 mg tablet 5 mg PO .Bedtime as needed PRN aripiprazole 10 mg tablet 5 mg PO BID albuterol sulfate 90 mcg/actuation HFA aerosol inhaler 2 inhalation PRN gabapentin 300 mg capsule 1,200 mg PO TID cyanocobalamin (vitamin B-12) 1,000 mcg/mL solution 1,000 mcg IM .Every 30 Days trazodone 50 mg tablet 50 - 100 mg PO .Bedtime as needed PRN albuterol sulfate 2.5 mg /3 mL (0.083 %) solution for nebulization inhalation PRN multivitamin Tablet 1 tab PO QAM ipratropium-albuterol 0.5 mg-3 mg(2.5 mg base)/3 mL solution for nebulization 1 ml inhalation PRN varenicline 1 mg tablet 1 mg PO BID loratadine 10 mg tablet 10 mg PO DAILY furosemide 20 mg tablet 20 mg PO DAILY pramipexole 0.25 mg tablet 0.25 mg PO BID lisinopril 2.5 mg tablet 2.5 mg PO DAILY fluticasone propionate 50 mcg/actuation spray,suspension 2 intranasal DAILY ferrous fumarate-vitamin C PO Daliresp 500 mcg tablet 500 mcg PO QDAY carvedilol 3.125 mg tablet 3.125 mg PO Q12H acetaminophen [Tylenol Extra Strength] 500 mg tablet 500 mg PO Q6H PRN Solange-Axtell Heartburn-Gas 750-80 mg tablet,chewable 1 tab PO Q2-4H PRN Rx Instructions: do not exceed 6 tabs per 24 hrs rivaroxaban 20 mg tablet 20 mg PO DAILY Qty: 90 3RF Rx Instructions: WITH MEAL Follow Up/Referrals: Jazz Michael MD [Primary Care Provider] - Stand Alone Forms: [facility] Info Instructions
--- NOTE | 2022-08-14 10:30 | ED.NURSE ---
was assisted to br and voided. 02 sats drop to 87%with activity and 02 off. does get more winded and wheezy. with rest and 02 sats improve and able to speak in sentences. 02 at 2 l and sats inproved to 94%,
--- NOTE | 2022-08-14 10:45 | CRLHL7_ITS ---
For Patients: As a result of the Century Cures Act, medical imaging exams and procedure reports are released immediately into your electronic medical record. You may view this report before your referring provider. If you have questions, please contact your health care provider. Indication: Dyspnea. Technique: Portable one-view AP upright chest x-ray. Comparison: PA and lateral chest x-ray from 06/21/2022. Findings: Lungs are clear. Heart size normal. Sandie unremarkable. No pleural fluid or pneumothorax. Mild degenerative changes of both acromioclavicular joints. Impression: No change from 06/21/2022. No acute cardiopulmonary pathology. Dictated by Tomi Monet MD @ 08/14/2022 11:55:16 AM (Electronically Signed)
[2022-08-14] MEDS: predniSONE 20 MG TABLET 40 MG PO (11:05)
--- NOTE | 2022-08-14 11:06 | RESP.RT ---
Patient had (2) albuterol nebulizer treatment at home before arriving at ED. Pre-DuoNeb treatment; Bilateral breath sounds with expiratory musical wheeze. Post treatment Musical wheeze improved, wheeze is diminished, patient able to take larger breath.
[2022-08-14 11:34] LABS: HCO3 VBG 35 mmol/L (21-28); PCO2 VBG 59 mmHG (40-50); PO2 VBG 42.5 mmHG (25-47); pH VBG 7.377 (7.32-7.43)
[2022-08-14 11:39] LABS: Basophils Absolute Auto 0.03 K/uL (0.00-0.30); Basophils Percent Auto 0.6 % (0.0-3.0); Eosinophils Absolute Auto 0.11 K/uL (0.00-0.50); Eosinophils Percent Auto 2.1 % (0.0-7.0); Hematocrit 38.3 % (33.0-51.0); Hemoglobin* 12.1 gm/dL (12.0-16.0); Lymphocytes Percent Auto 9.1 % (20-44); Mean Corpuscular HGB Conc 32 gm/dL (32-36); Mean Corpuscular Hemoglobin 28 pg (26-34); Mean Corpuscular Volume 89 fL (80-100); Neutrophils Percent Auto 80.2 % (42.0-72.0); Platelet Count* 201 K/uL (140-440); RDW Coefficient of Variation % 14.3 % (11.5-15.5); Red Blood Count 4.33 m/uL (4.00-5.20); White Blood Count* 5.14 K/uL (4.50-11.00)
[2022-08-14] MEDS: IPRAT-ALBUT 0.5-2.5 MG/3 ML NEB 1 NEB IH (11:41)
[2022-08-14 11:44] LABS: Slide Review Reflex No
[2022-08-14 11:55] LABS: Chloride* 100 mmol/L (96-114); Potassium* 4.1 mmol/L (3.6-5.1); Sodium* 137 mmol/L (135-149)
[2022-08-14 11:58] LABS: Blood Urea Nitrogen* 10 mg/dL (7-30); Calcium* 8.2 mg/dL (8.4-10.6); Carbon Dioxide* 31 mmol/L (20-32); Creatinine* 0.5 mg/dL (0.5-1.5); Est. Creatinine Clearance* 129.75; Estimated Glomerular Filt Rate 111 ml/min; Glucose* 130 mg/dL (60-115)
[2022-08-14 12:18] LABS: PCR FLU A Negative PCR FLU A (Negative); PCR FLU B Negative PCR FLU B (Negative); PCR RSV Negative PCR RSV (Negative); SARS PCR* Negative SARS-CoV-2 (Negative)
--- NOTE | 2022-08-14 12:51 | ED.NURSE ---
02 off will see how she saturates on r/a.
--- NOTE | 2022-08-14 13:17 | ED.NURSE ---
patent walked back to room from the bathroom and patient has a left foot drop but is able to get around well. was sob with activity so placed on 3 liters to recover as was reading 79% on room air. patient is recovering with O2 on and reading of pulse ox increasing to 90-1%.
== END 2022-08-14 13:37 | disposition home or self-care (01) ==
PROVIDERS: Emergency Provider Family Medicine; PCP Internal Medicine
DX: J44.1 Chronic obstructive pulmonary disease with (acute) exacerbation (principal); J06.9 Acute upper respiratory infection, unspecified
CPT/HCPCS: 36415; 71045; 80048; 82803; 85025; 87502; 87634; 87635; 94640; 99284; 99285; J7512

== ENCOUNTER 2022-08-28 15:13 | Outpatient (CLI) | payer OTHER, SELFPAY | END 2022-08-28 15:14 | disposition home or self-care (01) | LOC: AMB 08-29 11:44 | PROVIDERS: PCP Internal Medicine; Visit Provider Family Medicine | DX: R06.02 Shortness of breath (principal) | CPT/HCPCS: A0425; A0427 ==

== ENCOUNTER 2022-08-28 15:36 | Emergency (ER) | payer OTHER, SELFPAY ==
[2022-08-28 15:39] VITALS: BP 135/112; PULSE 110; RESP 28; TEMP 36.8; O2SAT 92; BMI 41.1
[2022-08-28 16:00] VITALS: RESP 18; O2SAT 91
--- NOTE | 2022-08-28 16:01 | RESP.RT ---
Patient arrived ED via EMS; in last hour patient had 2 puffs Albuterol with MDI, with no relief to SOB patient did an Albuterol Neb treatment at home, no relief, call EMS. On transport to Hospital EMS gave Patient DuoNeb with mask, finished in hospital. Post treatment patient can take larger breath. Patient now on room air, SaO2 91%, no change noted in BBS.
--- NOTE | 2022-08-28 16:23 | CRLHL7_ITS ---
For Patients: As a result of the Century Cures Act, medical imaging exams and procedure reports are released immediately into your electronic medical record. You may view this report before your referring provider. If you have questions, please contact your health care provider. Indication: Shortness of breath Technique: Chest 1 view Comparison: August 14, 2022 Findings/Impression: Cardiovascular and mediastinum: Heart size and vasculature are normal in caliber and appearance. Mediastinum is within normal limits. Lungs and pleural space: Lungs are clear. No sign of infiltrate or mass. No sign of pleural effusion. No pneumothorax. Bones and soft tissues: No significant findings. Dictated by Karen Dunne MD @ 08/28/2022 4:48:00 PM (Electronically Signed)
[2022-08-28 16:42] LABS: HCO3 VBG 32 mmol/L (21-28); PCO2 VBG 59 mmHG (40-50); PO2 VBG 22.5 mmHG (25-47); pH VBG 7.346 (7.32-7.43)
[2022-08-28 16:43] LABS: Basophils Percent Auto 0.5 % (0.0-3.0); Eosinophils Percent Auto 4.6 % (0.0-7.0); Hematocrit 39.8 % (33.0-51.0); Hemoglobin* 12.6 gm/dL (12.0-16.0); Lymphocytes Percent Auto 24.5 % (20-44); Mean Corpuscular HGB Conc 32 gm/dL (32-36); Mean Corpuscular Hemoglobin 28 pg (26-34); Mean Corpuscular Volume 87 fL (80-100); Monocytes Percent Auto 14.4 % (0.0-11.0); Platelet Count* 197 K/uL (140-440); RDW Coefficient of Variation % 14.1 % (11.5-15.5); Red Blood Count 4.58 m/uL (4.00-5.20); White Blood Count* 3.68 K/uL (4.50-11.00)
[2022-08-28 16:45] LABS: Slide Review Reflex No
[2022-08-28] MEDS: predniSONE 20 MG TABLET 60 MG PO (16:50)
[2022-08-28 17:04] VITALS: BP 129/59; PULSE 84; RESP 20; O2SAT 90
--- NOTE | 2022-08-28 17:18 | ED.GENADULT ---
HPI - General Adult General Date Seen: 08/28/22 Chief complaint: Shortness of Breath/Dyspnea Stated complaint: COPD, shortness of breath Time Seen by Provider: 08/28/22 16:03 Source: patient History of Present Illness HPI narrative: Patient is a 56-year-old with longstanding COPD. She has been having more trouble over the past couple of weeks. Seen here couple of weeks ago with an exacerbation and treated with 5 days of prednisone. She did feel better while on the prednisone but has been having more shortness of breath again since finishing it. Today, she says she was doing okay in the morning but then started to feel more short of breath, she says that she will get nasal congestion and runny nose which makes it harder to breathe because she can not breathe through her nose. She says she sat down to do some craft work, but continued to feel very short of breath. She says she checked her pulse ox and it was 63% with just minor exertion. She used a neb as well as her rescue inhaler, called 911 and by the time paramedics got there they recorded an O2 sat of 88%. She received another DuoNeb EN route and by the time she got here she says she was feeling significantly better. O2 sats here were 92% on room air. She says she has not had any fevers, continues to have a cough which is not significantly unusual for her. She has had some headaches and nasal congestion, but just clear nasal drainage. She has allergies and takes allergy medicine and uses Flomax. She has a history of hospitalizations in the past, most recently about a year ago she says, compared to that she says she feels significantly better. 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 At that time she was taken off oxygen since she was doing better. She denies any unusual leg pain or swelling. She has not had chest pain. Related Data Home Medications Medication Instructions Recorded Confirmed albuterol sulfate 2.5 mg/3 mL mg inhalation PRN 02/26/22 06/21/22 (0.083 %) solution for nebulization albuterol sulfate 90 mcg/actuation 2 inhalation PRN 02/26/22 06/21/22 aerosol inhaler aripiprazole 10 mg tablet 5 mg PO BID 02/26/22 06/21/22 cyanocobalamin (vitamin B-12) 1,000 mcg IM .Every 30 Days 02/26/22 06/21/22 1,000 mcg/mL injection solution cyclobenzaprine 5 mg tablet 5 mg PO .Bedtime as needed PRN 02/26/22 06/21/22 duloxetine 60 mg capsule,delayed 60 mg PO BID 02/26/22 06/21/22 release fluticasone fur. 100 mcg-umeclid inhalation DAILY 02/26/22 06/21/22 62.5 mcg-vilant 25 mcg inhalat.powder furosemide 20 mg tablet 20 mg PO DAILY 02/26/22 06/21/22 gabapentin 300 mg capsule 1,200 mg PO TID 02/26/22 06/21/22 ipratropium 0.5 mg-albuterol 3 mg 1 ml inhalation PRN 02/26/22 06/21/22 (2.5 mg base)/3 mL nebulization soln lisinopril 2.5 mg tablet 2.5 mg PO DAILY 02/26/22 06/21/22 loratadine 10 mg tablet 10 mg PO DAILY 02/26/22 06/21/22 multivitamin 1 tab PO QAM 02/26/22 06/21/22 pramipexole 0.25 mg tablet 0.25 mg PO BID 02/26/22 06/21/22 rosuvastatin 5 mg tablet 5 mg PO DAILY 02/26/22 06/21/22 trazodone 50 mg tablet 50 - 100 mg PO .Bedtime as needed 02/26/22 06/21/22 PRN varenicline 1 mg tablet 1 mg PO BID 02/26/22 06/21/22 ferrous fumarate-vitamin C PO 02/27/22 06/21/22 fluticasone propionate 50 2 intranasal DAILY 02/27/22 06/21/22 mcg/actuation nasal spray,suspension roflumilast 500 mcg tablet 500 mcg PO QDAY 02/27/22 06/21/22 (Daliresp) acetaminophen 500 mg tablet 500 mg PO Q6H PRN 03/07/22 06/21/22 (Tylenol Extra Strength) calcium carbonate 750 1 tab PO Q2-4H PRN 03/07/22 06/21/22 mg-simethicone 80 mg chewable tablet (Solange-Adrian Heartburn-Gas) carvedilol 3.125 mg tablet 3.125 mg PO Q12H 03/07/22 06/21/22 Previous Rx's Medication Instructions Recorded rivaroxaban 20 mg tablet 20 mg PO DAILY #90 tabs 04/26/22 Allergies Allergy/AdvReac Type Severity Reaction Status Date / Time cephalexin Allergy Intermediate Hives Verified 08/28/22 15:44 morphine Allergy Intermediate Hives Verified 08/28/22 15:44 Review of Systems Status of ROS: Reports: 10 or more systems reviewed and unremarkable except as noted in History and below [facility] Medical History History of drug abuse History of hepatitis C History of suicide attempt (2016) Surgical History Cauda equina syndrome (2001) History of arthroscopy of right knee (09/02/15) History of section (06/23/87) History of cholecystectomy History of cone biopsy of cervix (1987) History of endometrial ablation (01/25/05) History of open reduction and internal fixation (ORIF) procedure (1996) History of tubal ligation (2004) Status post endovenous radiofrequency ablation (RFA) of saphenous vein (07/2017) Social History Smoking Status: Former smoker Do you use any of these nicotine containing products: None Second hand tobacco smoke exposure: Yes How often do you have a drink containing alcohol: monthly or less How many standard drinks containing alcohol do you have on a typical day: 1 or 2 How often do you have six or more drinks on one occasion: Never AUDIT-C Alcohol total score: 1 Non-prescribed substance use: denies use Little interest or pleasure in doing things: not at all Feeling down, depressed, or hopeless: not at all service: No Exam Narrative: Exam Narrative: Vital signs as noted above. In general, an alert, well-appearing patient. She is breathing easily at the time of my exam. Head: Normocephalic, atraumatic. Eyes: Pupils are equal reactive. Extraocular movements are full. Conjunctivae are normal. ENT: Mucous membranes are moist. Throat is normal. Neck: Supple without lymphadenopathy. No stridor. Heart: Regular rate and rhythm. No murmur or rub. Lungs: Occasional wheezes, overall clear. No increased work of breathing. Abdomen: Soft and nontender. No organomegaly. Extremities: Trace edema bilaterally. No calf tenderness or erythema. Pulses intact. Neurologic: Patient is alert and oriented to person and place. Speech is fluent. Face is symmetric. Moves all extremities equally. Affect: Normal. Skin: Warm and dry. Well perfused. Const: Vital Signs, click to edit/add: Vital Signs - 24 hr 08/28/22 15:39 08/28/22 16:00 08/28/22 17:04 Temperature 98.2 F Pulse Rate [Pulse Oximeter] 110 H 84 Respiratory Rate 28 H 18 20 Blood Pressure [Ri ght Upper Arm] 135/112 H 129/59 L Pulse Oximetry 92 91 90 Oxygen Delivery Me thod Room Air Room Air Room Air 08/28/22 18:23 Temperature Pulse Rate [Pulse Oximeter] 74 Respiratory Rate Blood Pressure [Ri ght Upper Arm] Pulse Oximetry 92 Oxygen Delivery Me thod Room Air Documenting provider has reviewed patient's vital signs: yes Course Course Hospital Course: At the time of my exam, she was feeling comfortable, did not feel that she needed any further nebs. Overall presentation is most consistent with a COPD exacerbation, but I did recommend that we check some labs and do an x-ray. She does have an upcoming appointment with her primary doctor, she suspects that her primary doctor will want her to follow up with her flower grower again but she has not made that appointment. Up will chest x-ray by my review is negative for infiltrate. The final radiology review is likewise negative. Labs thus far show a CBC with a white count of 3.7, hemoglobin of 12.6. Diff is notable only for increased monocytes. Gas shows a pCO2 of 59, with a compensated pH of 3.46 and a bicarb of 32. Point of care troponin is 0. EKG by my review showed a normal sinus rhythm, ventricular rate of 79 beats per minute, no acute ischemic changes. Patient continued to feel well here. She was ambulatory with an O2 sat of 90 92% on room air. She is comfortable going home. This does seem to represent an exacerbation in her COPD, I do not find any evidence of CHF, pneumonia, acute coronary syndrome, she does not report any lower extremity symptoms or pleuritic chest pain suggestive of PE. I think COPD exacerbation is the more likely cause. She has been having more trouble the past couple of weeks, she is describing some problems with worsening nasal congestion contributing to her symptoms. I do not think it would be unreasonable to add an antibiotic at this time to cover for COPD exacerbation as well as possible sinus symptoms. She can follow up with primary care as planned, return at any time for worsening acute symptoms. Pulmonary follow-up as recommended by Primary Care. Vital Signs Vital signs: Initial Vital Signs Temperature 98.2 F 08/28/22 15:39 Temperature Source Temporal Artery Scan 08/28/22 15:39 Pulse Rate 110 H 08/28/22 15:39 Pulse Rhythm 08/28/22 15:39 Pulse Strength 3+ Normal 08/28/22 15:39 Respiratory Rate 28 H 08/28/22 15:39 Blood Pressure 135/112 H 08/28/22 15:39 Blood Pressure Mean 119 08/28/22 15:39 Pulse Oximetry 92 08/28/22 15:39 Oxygen Delivery Method 08/28/22 15:39 Vital Signs Temperature 98.2 F 08/28/22 15:39 Pulse Rate 110 H 08/28/22 15:39 Respiratory Rate 28 H 08/28/22 15:39 Blood Pressure 135/112 H 08/28/22 15:39 Pulse Oximetry 92 08/28/22 15:39 Oxygen Delivery Method 08/28/22 15:39 Temperature 98.2 F 08/28/22 15:39 Pulse Rate 74 08/28/22 18:23 Respiratory Rate 20 08/28/22 17:04 Blood Pressure 129/59 L 08/28/22 17:04 Pulse Oximetry 92 08/28/22 18:23 Oxygen Delivery Method 08/28/22 18:23 Medical Decision Making Lab Data Labs: Lab Results 08/28/22 08/28/22 08/28/22 Range/Units 16:23 16:36 16:36 WBC 3.68 L (4.50-11.00) K/uL RBC 4.58 (4.00-5.20) m/uL Hgb 12.6 (12.0-16.0) gm/dL Hct 39.8 (33.0-51.0) % MCV 87 (80-100) fL MCH 28 (26-34) pg MCHC 32 (32-36) gm/dL RDW Coeff of Sulma 14.1 (11.5-15.5) % Plt Count 197 (140-440) K/uL Neut % (Auto) 56.0 (42.0-72.0) % Lymph % (Auto) 24.5 (20-44) % [place] % (Auto) 14.4 H (0.0-11.0) % Eos % (Auto) 4.6 (0.0-7.0) % Baso % (Auto) 0.5 (0.0-3.0) % Neut # (Auto) 2.10 (1.7-7.0) K/uL Lymph # (Auto) 0.90 (0.90-2.90) K/uL [place] # (Auto) 0.50 (0.00-0.90) K/UL Eos # (Auto) 0.20 (0.00-0.50) K/uL Baso # (Auto) 0.00 (0.00-0.30) K/uL VBG pH (7.32-7.43) VBG pCO2 (40-50) mmHG VBG pO2 (25-47) mmHG VBG HCO3 (21-28) mmol/L Sodium 132 L (135-149) mmol/L Potassium 3.9 (3.6-5.1) mmol/L Chloride 97 (96-114) mmol/L Carbon Dioxide 31 (20-32) mmol/L BUN 6 L (7-30) mg/dL Creatinine 0.5 (0.5-1.5) mg/dL Estimated Creat Clear 129.75 Estimated GFR 111 ml/min Glucose 112 (60-115) mg/dL Calcium 8.6 (8.4-10.6) mg/dL C-Reactive Protein < 0.5 L (0.5-1.0) mg/dL NT-Pro-B Natriuret Pep 141 pg/mL SARS-CoV-2 (PCR) (Negative) Influenza Type A (PCR) (Negative) Influenza Type B (PCR) (Negative) RSV (PCR) (Negative) POC Troponin I 0.00 L (0.01-0.04) ng/ml 08/28/22 08/28/22 Range/Units 16:36 16:40 WBC (4.50-11.00) K/uL RBC (4.00-5.20) m/uL Hgb (12.0-16.0) gm/dL Hct (33.0-51.0) % MCV (80-100) fL MCH (26-34) pg MCHC (32-36) gm/dL RDW Coeff of Sulma (11.5-15.5) % Plt Count (140-440) K/uL Neut % (Auto) (42.0-72.0) % Lymph % (Auto) (20-44) % [place] % (Auto) (0.0-11.0) % Eos % (Auto) (0.0-7.0) % Baso % (Auto) (0.0-3.0) % Neut # (Auto) (1.7-7.0) K/uL Lymph # (Auto) (0.90-2.90) K/uL [place] # (Auto) (0.00-0.90) K/UL Eos # (Auto) (0.00-0.50) K/uL Baso # (Auto) (0.00-0.30) K/uL VBG pH 7.346 (7.32-7.43) VBG pCO2 59 H (40-50) mmHG VBG pO2 22.5 L (25-47) mmHG VBG HCO3 32 H (21-28) mmol/L Sodium (135-149) mmol/L Potassium (3.6-5.1) mmol/L Chloride (96-114) mmol/L Carbon Dioxide (20-32) mmol/L BUN (7-30) mg/dL Creatinine (0.5-1.5) mg/dL Estimated Creat Clear Estimated GFR ml/min Glucose (60-115) mg/dL Calcium (8.4-10.6) mg/dL C-Reactive Protein (0.5-1.0) mg/dL NT-Pro-B Natriuret Pep pg/mL SARS-CoV-2 (PCR) Negative SARS-CoV-2 (Negative) Influenza Type A (PCR) Negative PCR FLU A (Negative) Influenza Type B (PCR) Negative PCR FLU B (Negative) RSV (PCR) Negative PCR RSV (Negative) POC Troponin I (0.01-0.04) ng/ml Discharge Plan Discharge Clinical Impression: Chronic obstructive pulmonary disease Patient Disposition: Home, Self-Care Condition: Improved Instructions: COPD (Chronic Obstructive Pulmonary Disease) (DC) Additional Instructions: Medications as prescribed. Follow-up with your primary care doctor, pulmonary doctor if recommended. Return at any time for acute worsening. Prednisone as follows: 3 tabs daily for 3 days, then 2 tabs daily for 3 days, then 1 tab daily for 3 days. Prescriptions: No Action [id number] 100-62.5-25 mcg blister with device inhalation DAILY duloxetine 60 mg capsule,delayed release(DR/EC) 60 mg PO BID rosuvastatin 5 mg tablet 5 mg PO DAILY cyclobenzaprine 5 mg tablet 5 mg PO .Bedtime as needed PRN aripiprazole 10 mg tablet 5 mg PO BID albuterol sulfate 90 mcg/actuation HFA aerosol inhaler 2 inhalation PRN gabapentin 300 mg capsule 1,200 mg PO TID cyanocobalamin (vitamin B-12) 1,000 mcg/mL solution 1,000 mcg IM .Every 30 Days trazodone 50 mg tablet 50 - 100 mg PO .Bedtime as needed PRN albuterol sulfate 2.5 mg /3 mL (0.083 %) solution for nebulization inhalation PRN multivitamin Tablet 1 tab PO QAM ipratropium-albuterol 0.5 mg-3 mg(2.5 mg base)/3 mL solution for nebulization 1 ml inhalation PRN varenicline 1 mg tablet 1 mg PO BID loratadine 10 mg tablet 10 mg PO DAILY furosemide 20 mg tablet 20 mg PO DAILY pramipexole 0.25 mg tablet 0.25 mg PO BID lisinopril 2.5 mg tablet 2.5 mg PO DAILY fluticasone propionate 50 mcg/actuation spray,suspension 2 intranasal DAILY ferrous fumarate-vitamin C PO Daliresp 500 mcg tablet 500 mcg PO QDAY carvedilol 3.125 mg tablet 3.125 mg PO Q12H acetaminophen [Tylenol Extra Strength] 500 mg tablet 500 mg PO Q6H PRN Solange-Adrian Heartburn-Gas 750-80 mg tablet,chewable 1 tab PO Q2-4H PRN Rx Instructions: do not exceed 6 tabs per 24 hrs rivaroxaban 20 mg tablet 20 mg PO DAILY Qty: 90 3RF Rx Instructions: WITH MEAL Follow Up/Referrals: Jazz Michael MD [Primary Care Provider] - Stand Alone Forms: [facility] Info Instructions
--- NOTE | 2022-08-28 17:23 | ED.NURSE ---
Patient ambulated with pulse oximeter on. Sats recorded were 90-92%.
[2022-08-28 17:35] LABS: PCR FLU A Negative PCR FLU A (Negative); PCR FLU B Negative PCR FLU B (Negative); PCR RSV Negative PCR RSV (Negative)
[2022-08-28 17:41] LABS: SARS PCR* Negative SARS-CoV-2 (Negative)
[2022-08-28 18:12] LABS: Blood Urea Nitrogen* 6 mg/dL (7-30); Calcium* 8.6 mg/dL (8.4-10.6); Carbon Dioxide* 31 mmol/L (20-32); Chloride* 97 mmol/L (96-114); Creatinine* 0.5 mg/dL (0.5-1.5); Est. Creatinine Clearance* 129.75; Estimated Glomerular Filt Rate 111 ml/min; Glucose* 112 mg/dL (60-115); Potassium* 3.9 mmol/L (3.6-5.1); Sodium* 132 mmol/L (135-149)
[2022-08-28 18:13] LABS: C Reactive Protein* < 0.5 mg/dL (0.5-1.0); NT Pro B Type NatriureticPept* 141 pg/mL
[2022-08-28 18:23] VITALS: PULSE 74; O2SAT 92
== END 2022-08-28 18:30 | disposition home or self-care (01) ==
PROVIDERS: Emergency Provider Emergency Medicine; PCP Internal Medicine
DX: J44.9 Chronic obstructive pulmonary disease, unspecified (principal)
CPT/HCPCS: 36415; 71045; 80048; 82803; 83880; 84484; 85025; 86140; 87502; 87634; 87635; 93005; 99284; 99285; J7512

== ENCOUNTER 2022-09-20 23:51 | Outpatient (CLI) | payer OTHER, SELFPAY | END 2022-09-20 23:52 | disposition home or self-care (01) | LOC: AMB 09-21 10:25 | PROVIDERS: PCP Internal Medicine; Visit Provider Family Medicine | DX: R06.09 Other forms of dyspnea (principal) | CPT/HCPCS: A0425; A0427 ==

== ENCOUNTER 2022-09-21 01:10 | Inpatient (IN) | payer MEDICAID, SELFPAY ==
[2022-09-21] VITALS (38 sets, daily range): BP systolic 109–174; BP diastolic 64–113; PULSE 74–111; RESP 16–33; TEMP 36–36.8; O2SAT 91–100; BMI 41.5; BMI 40.9
--- NOTE | 2022-09-21 00:19 | CRLHL7_ITS ---
For Patients: As a result of the Century Cures Act, medical imaging exams and procedure reports are released immediately into your electronic medical record. You may view this report before your referring provider. If you have questions, please contact your health care provider. INDICATION: [id number]. TECHNIQUE: Chest 1 views. COMPARISON: August 28, 2022. FINDINGS: Lungs: Normal lung volume. No consolidation. The tracheobronchial tree and hilar structures are unremarkable. Pleura: No pleural effusion or pneumothorax. Heart and Mediastinum: Normal heart size. The great vessels of the thorax are unremarkable. Bones: No acute displaced osseous process. IMPRESSION: No consolidation. Dictated by Petar Boyd MD @ 09/21/2022 12:41:27 AM (Electronically Signed)
[2022-09-21 00:32] LABS: Basophils Absolute Auto 0.03 K/uL (0.00-0.30); Basophils Percent Auto 0.6 % (0.0-3.0); Eosinophils Absolute Auto 0.15 K/uL (0.00-0.50); Eosinophils Percent Auto 3.2 % (0.0-7.0); Hemoglobin* 13.4 gm/dL (12.0-16.0); Immature Granulocytes Abs Auto 0.01 K/uL (0.00-0.30); Immature Granulocytes Pct Auto 0.2 %; Lymphocytes Absolute Auto 1.29 K/uL (0.90-2.90); Lymphocytes Percent Auto 27.9 % (20-44); Mean Corpuscular HGB Conc 31 gm/dL (32-36); Mean Corpuscular Hemoglobin 28 pg (26-34); Mean Corpuscular Volume 90 fL (80-100); Monocytes Percent Auto 11.9 % (0.0-11.0); Neutrophils Percent Auto 56.2 % (42.0-72.0); Platelet Count* 190 K/uL (140-440); RDW Coefficient of Variation % 15.1 % (11.5-15.5); Red Blood Count 4.87 m/uL (4.00-5.20); White Blood Count* 4.63 K/uL (4.50-11.00)
[2022-09-21 00:35] LABS: Slide Review Reflex No
--- NOTE | 2022-09-21 00:41 | ED.NURSE ---
Bipap initiated on pt.
[2022-09-21] MEDS: IPRAT-ALBUT 0.5-2.5 MG/3 ML NEB 1 NEB IH ×4 (00:45→20:29)
[2022-09-21] MEDS: METHYLPREDNISOLONE SOD SUCC 62.5 MG/ML (125) 125 MG IVP (00:45)
--- NOTE | 2022-09-21 00:48 | ED.NURSE ---
Bipap settings: IPAP - 9 EPAP - 5 Rate - 12 FIO2 - 30%
[2022-09-21] MEDS: MAGNESIUM SULFATE 2 GM/50 ML PIGGYBACK IVPB (00:50)
[2022-09-21 00:52] LABS: Base Excess ABG 3.6 mmol/L (-3.0-3.0); Carboxyhemoglobin* 2.9 % (0.0-5.0); HCO3 ABG 33 mmol/L (21-28); Oxygen Saturation ABG 97 % (92-100); PO2 ABG 97.2 mmHG (80-105); TCO2 ABG 31 mmol/l (21-30); pH ABG 7.26 (7.35-7.45)
[2022-09-21 00:54] LABS: ABG PCO2 74 mmHG (35-45)
[2022-09-21 00:56] LABS: Troponin, Point-of-Care* 0.02 ng/ml (0.01-0.04)
[2022-09-21 00:57] LABS: Albumin* 4.2 g/dL (3.3-5.0); Chloride* 103 mmol/L (96-114); Potassium* 4.7 mmol/L (3.6-5.1); Sodium* 140 mmol/L (135-149)
[2022-09-21 00:59] LABS: Bilirubin Total* 0.5 mg/dL (0.1-1.5); Creatinine* 0.5 mg/dL (0.5-1.5); Est. Creatinine Clearance* 129.75; Estimated Glomerular Filt Rate 111 ml/min
[2022-09-21 01:00] LABS: Alanine Aminotransferase* 27 U/L (4-35); Alkaline Phosphatase* 86 U/L (40-150); Aspartate Amino Transferase* 32 U/L (12-35); Blood Urea Nitrogen* 12 mg/dL (7-30); Calcium* 8.7 mg/dL (8.4-10.6); Carbon Dioxide* 34 mmol/L (20-32); Glucose* 128 mg/dL (60-115); Total Protein* 6.9 g/dL (6.0-8.3)
[2022-09-21 01:09] LABS: PCR FLU A Negative PCR FLU A (Negative); PCR FLU B Negative PCR FLU B (Negative); PCR RSV Negative PCR RSV (Negative)
[2022-09-21 01:10] LABS: SARS PCR* Negative SARS-CoV-2 (Negative)
[2022-09-21] MEDS: fentaNYL 100 MCG/2 ML inj 25 MCG IVP (01:11)
[2022-09-21 01:13] LABS: Troponin I* < 0.01 ng/mL (0.01-0.04)
--- NOTE | 2022-09-21 01:15 | ED.GENADULT ---
HPI - General Adult General Chief complaint: Shortness of Breath/Dyspnea Stated complaint: Shortness of breath Source: EMS Mode of arrival: EMS Limitations: other (Severe respiratory distress) History of Present Illness HPI narrative: Patient is a 56-year-old female with severe COPD. She was seen in the emergency department about two weeks ago and in the clinic about one week ago. She has been short of breath for over a month despite several courses of prednisone. Today she used her nebulizer every 2 hours with minimal relief. She is also using albuterol in between nebs. She denies fevers. She did a home COVID test that was negative. She does still smoke. 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 Related Data Home Medications Medication Instructions Recorded Confirmed albuterol sulfate 2.5 mg/3 mL mg inhalation PRN 02/26/22 06/21/22 (0.083 %) solution for nebulization albuterol sulfate 90 mcg/actuation 2 inhalation PRN 02/26/22 06/21/22 aerosol inhaler aripiprazole 10 mg tablet 5 mg PO BID 02/26/22 06/21/22 cyanocobalamin (vitamin B-12) 1,000 mcg IM .Every 30 Days 02/26/22 06/21/22 1,000 mcg/mL injection solution cyclobenzaprine 5 mg tablet 5 mg PO .Bedtime as needed PRN 02/26/22 06/21/22 duloxetine 60 mg capsule,delayed 60 mg PO BID 02/26/22 06/21/22 release fluticasone fur. 100 mcg-umeclid inhalation DAILY 02/26/22 06/21/22 62.5 mcg-vilant 25 mcg inhalat.powder furosemide 20 mg tablet 20 mg PO DAILY 02/26/22 06/21/22 gabapentin 300 mg capsule 1,200 mg PO TID 02/26/22 06/21/22 lisinopril 2.5 mg tablet 2.5 mg PO DAILY 02/26/22 06/21/22 loratadine 10 mg tablet 10 mg PO DAILY 02/26/22 06/21/22 multivitamin 1 tab PO QAM 02/26/22 06/21/22 rosuvastatin 5 mg tablet 5 mg PO DAILY 02/26/22 06/21/22 trazodone 50 mg tablet 50 - 100 mg PO .Bedtime as needed 02/26/22 06/21/22 PRN varenicline 1 mg tablet 1 mg PO BID 02/26/22 06/21/22 ferrous fumarate-vitamin C PO 02/27/22 06/21/22 fluticasone propionate 50 2 intranasal DAILY 02/27/22 06/21/22 mcg/actuation nasal spray,suspension roflumilast 500 mcg tablet 500 mcg PO QDAY 02/27/22 06/21/22 (Daliresp) acetaminophen 500 mg tablet 500 mg PO Q6H PRN 03/07/22 06/21/22 (Tylenol Extra Strength) calcium carbonate 750 1 tab PO Q2-4H PRN 03/07/22 06/21/22 mg-simethicone 80 mg chewable tablet ([place] Heartburn-Gas) carvedilol 3.125 mg tablet 3.125 mg PO Q12H 03/07/22 06/21/22 Previous Rx's Medication Instructions Recorded rivaroxaban 20 mg tablet 20 mg PO DAILY #90 tabs 04/26/22 ipratropium 0.5 mg-albuterol 3 mg 1 ml inhalation Q6-8H PRN 09/03/22 (2.5 mg base)/3 mL nebulization shortness of breath #180 mL soln pramipexole 0.25 mg tablet 0.25 mg PO BID #180 tabs 09/03/22 prednisone 20 mg tablet 10 - 40 mg PO DAILY #18 tabs 09/03/22 Allergies Allergy/AdvReac Type Severity Reaction Status Date / Time cephalexin Allergy Intermediate Hives Verified 08/28/22 15:44 morphine Allergy Intermediate Hives Verified 08/28/22 15:44 Review of Systems Narrative: Review of systems is outlined above otherwise noted to be negative. [facility] Medical History (Updated 09/21/22 @ 02:12 by Petar Allen MD) Chronic hyponatremia Chronic obstructive pulmonary disease Chronic pain syndrome Dependent edema Essential hypertension Generalized anxiety disorder History of drug abuse History of DVT (deep vein thrombosis) History of hepatitis C History of suicide attempt (2016) Insomnia Left foot drop (2001) Morbid obesity Neurogenic bladder Neurogenic bowel Nicotine dependence Obstructive sleep apnea syndrome Peripheral neuropathic pain Pre-diabetes Radial neck fracture Restless legs syndrome Surgical History (Updated 09/21/22 @ 01:01 by Petar Allen MD) Cauda equina syndrome (2001) History of arthroscopy of right knee (09/02/15) History of section (06/23/87) History of cholecystectomy History of cone biopsy of cervix (1987) History of endometrial ablation (01/25/05) History of open reduction and internal fixation (ORIF) procedure (1996) History of Joaquin-en-Y gastric bypass History of tubal ligation (2004) Status post endovenous radiofrequency ablation (RFA) of saphenous vein (07/2017) Family History (Updated 09/21/22 @ 01:05 by Petar Allen MD) Other Coronary artery disease Social History (Updated 09/21/22 @ 01:04 by Petar Allen MD) Narrative: Lives alone, [place], Disabled, 4 kids, , smokes, rare EtOH, 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[facility], 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 She is maintaining her O2 sats but respiratory rate is over 30. Speaking in 1-2 word phrases. HEENT: Conjunctiva clear. Tympanic membranes are pearly white bilaterally. Posterior pharynx is clear without erythema or exudate. Neck is supple without adenopathy, thyromegaly, carotid bruit. Lungs: Poor air movement, expiratory wheezes. Tachypnea. Heart: Tachycardic but Regular rhythm without murmur. Abdomen: Obese, Soft and nontender. No guarding, rigidity, rebound. Bowel sounds are normal. No palpable masses. Extremities: No cyanosis or edema. Good distal pulses. Skin: Legs are initially cool and mottled, temperature improves asked her respiratory effort improves. Neurologic: Awake, alert, fully oriented. Neurologic exam is nonfocal. Const: Vital Signs, click to edit/add: Vital Signs - 24 hr 09/21/22 00:15 09/21/22 00:15 09/21/22 00:17 Temperature 96.8 F L Pulse Rate 86 Pulse Rate [Pulse Oximeter] 111 H Respiratory Rate 33 H Blood Pressure Blood Pressure [Le ft Upper Arm] 165/103 H Pulse Oximetry 100 100 97 Oxygen Delivery Me thod BiPAP OxyMask OxyMask Oxygen Flow Rate 12 12 Fraction of Inspir ed Oxygen 09/21/22 00:21 09/21/22 00:30 09/21/22 00:44 Temperature Pulse Rate 110 H 101 H 104 H Pulse Rate [Pulse Oximeter] Respiratory Rate Blood Pressure 165/103 H 174/113 H Blood Pressure [Le ft Upper Arm] Pulse Oximetry 100 100 98 Oxygen Delivery Me thod OxyMask OxyMask BiPAP Oxygen Flow Rate 12 12 Fraction of Inspir ed Oxygen 40 09/21/22 00:45 09/21/22 01:00 09/21/22 01:25 Temperature Pulse Rate 104 H 101 H Pulse Rate [Pulse Oximeter] Respiratory Rate Blood Pressure 140/68 H Blood Pressure [Le ft Upper Arm] Pulse Oximetry 98 95 95 Oxygen Delivery Me thod BiPAP BiPAP BiPAP Oxygen Flow Rate Fraction of Inspir ed Oxygen 30 30 30 09/21/22 01:02 09/21/22 01:15 09/21/22 01:22 Temperature Pulse Rate 100 97 97 Pulse Rate [Pulse Oximeter] Respiratory Rate 22 Blood Pressure 153/73 H 140/68 H Blood Pressure [Le ft Upper Arm] Pulse Oximetry 95 94 93 Oxygen Delivery Me thod BiPAP Oxygen Flow Rate Fraction of Inspir ed Oxygen 30 09/21/22 01:30 09/21/22 01:42 09/21/22 01:45 Temperature Pulse Rate 97 99 99 Pulse Rate [Pulse Oximeter] Respiratory Rate Blood Pressure 133/72 Blood Pressure [Le ft Upper Arm] Pulse Oximetry 93 94 94 Oxygen Delivery Me thod Oxygen Flow Rate Fraction of Inspir ed Oxygen 09/21/22 02:00 Temperature Pulse Rate 98 Pulse Rate [Pulse Oximeter] Respiratory Rate Blood Pressure Blood Pressure [Le ft Upper Arm] Pulse Oximetry 95 Oxygen Delivery Me thod Oxygen Flow Rate Fraction of Inspir ed Oxygen Course Course Hospital Course: Patient presents in respiratory distress. EMS brings her in on BiPAP at 10/5 with an FiO2 of 100%. Labs and chest x-ray are ordered. We transfer her to our BiPAP after giving a DuoNeb. IV is established and Solu-Medrol 125 mg is given. Magnesium 2 g IV is given. Respiratory rate remains high and BiPAP settings are changed to 12/5. She is given fentanyl 25 mcg for headache. Reevaluation(s) Reevaluation #1: EKG shows sinus tachycardia at 1:[address] or T-wave changes. Chest x-ray is clear. CBC and CMP are normal. Troponin is negative. Swabs for influenza, COVID, RSV are all negative. ABG shows a pH 7.26, pCO2 74, PO2 97, bicarb 33. We adjusted her BiPAP settings to 12/6 and her FiO2 is 30%. Her headache improved with a small dose of fentanyl. She is tolerating BiPAP well. She feels much better. She tells me that she was last intubated two years ago. She is full code. I spoke with flori Ozuna who kindly agrees to admit her to the hospital for this severe COPD exacerbation. Vital Signs Vital signs: Initial Vital Signs Temperature 96.8 F L 09/21/22 00:15 Temperature Source Temporal Artery Scan 09/21/22 00:15 Pulse Rate 111 H 09/21/22 00:15 Pulse Rhythm 09/21/22 00:15 Pulse Strength 3+ Normal 09/21/22 00:15 Respiratory Rate 33 H 09/21/22 00:15 Blood Pressure 165/103 H 09/21/22 00:15 Blood Pressure Mean 123 09/21/22 00:15 Blood Pressure Position Supine 09/21/22 00:15 Pulse Oximetry 100 09/21/22 00:15 Oxygen Delivery Method 09/21/22 00:15 Oxygen Flow Rate 12 09/21/22 00:15 Vital Signs Temperature 96.8 F L 09/21/22 00:15 Pulse Rate 111 H 09/21/22 00:15 Respiratory Rate 33 H 09/21/22 00:15 Blood Pressure 165/103 H 09/21/22 00:15 Pulse Oximetry 100 09/21/22 00:15 Oxygen Delivery Method 09/21/22 00:15 Oxygen Flow Rate 12 09/21/22 00:15 Temperature 96.8 F L 09/21/22 00:15 Pulse Rate 98 09/21/22 02:00 Respiratory Rate 22 09/21/22 01:02 Blood Pressure 133/72 09/21/22 01:42 Pulse Oximetry 95 09/21/22 02:00 Oxygen Delivery Method 09/21/22 01:25 Oxygen Flow Rate 12 09/21/22 00:30 Fraction of Inspired Oxygen 30 09/21/22 01:25 Medical Decision Making Lab Data Labs: Lab Results 09/21/22 09/21/22 09/21/22 Range/Units 00:14 00:14 00:14 WBC 4.63 (4.50-11.00) K/uL RBC 4.87 (4.00-5.20) m/uL Hgb 13.4 (12.0-16.0) gm/dL Hct 44.0 (33.0-51.0) % MCV 90 (80-100) fL MCH 28 (26-34) pg MCHC 31 L (32-36) gm/dL RDW Coeff of Sulma 15.1 (11.5-15.5) % Plt Count 190 (140-440) K/uL Neut % (Auto) 56.2 (42.0-72.0) % Lymph % (Auto) 27.9 (20-44) % [place] % (Auto) 11.9 H (0.0-11.0) % Eos % (Auto) 3.2 (0.0-7.0) % Baso % (Auto) 0.6 (0.0-3.0) % Neut # (Auto) 2.60 (1.7-7.0) K/uL Lymph # (Auto) 1.29 (0.90-2.90) K/uL [place] # (Auto) 0.60 (0.00-0.90) K/UL Eos # (Auto) 0.15 (0.00-0.50) K/uL Baso # (Auto) 0.03 (0.00-0.30) K/uL ABG pH (7.35-7.45) ABG pCO2 (35-45) mmHG ABG pO2 (80-105) mmHG ABG HCO3 (21-28) mmol/L ABG Total CO2 (21-30) mmol/l ABG O2 Saturation (92-100) % ABG Base Excess (-3.0-3.0) mmol/L Carboxyhemoglobin (0.0-5.0) % Sodium 140 (135-149) mmol/L Potassium 4.7 (3.6-5.1) mmol/L Chloride 103 (96-114) mmol/L Carbon Dioxide 34 H (20-32) mmol/L BUN 12 (7-30) mg/dL Creatinine 0.5 (0.5-1.5) mg/dL Estimated Creat Clear 129.75 Estimated GFR 111 ml/min Glucose 128 H (60-115) mg/dL Calcium 8.7 (8.4-10.6) mg/dL Total Bilirubin 0.5 (0.1-1.5) mg/dL AST 32 (12-35) U/L ALT 27 (4-35) U/L Alkaline Phosphatase 86 (40-150) U/L Troponin I < 0.01 L (0.01-0.04) ng/mL Total Protein 6.9 (6.0-8.3) g/dL Albumin 4.2 (3.3-5.0) g/dL SARS-CoV-2 (PCR) Negative SARS-CoV-2 (Negative) Influenza Type A (PCR) Negative PCR FLU A (Negative) Influenza Type B (PCR) Negative PCR FLU B (Negative) RSV (PCR) Negative PCR RSV (Negative) POC Troponin I (0.01-0.04) ng/ml 09/21/22 09/21/22 Range/Units 00:15 00:45 WBC (4.50-11.00) K/uL RBC (4.00-5.20) m/uL Hgb (12.0-16.0) gm/dL Hct (33.0-51.0) % MCV (80-100) fL MCH (26-34) pg MCHC (32-36) gm/dL RDW Coeff of Sulma (11.5-15.5) % Plt Count (140-440) K/uL Neut % (Auto) (42.0-72.0) % Lymph % (Auto) (20-44) % [place] % (Auto) (0.0-11.0) % Eos % (Auto) (0.0-7.0) % Baso % (Auto) (0.0-3.0) % Neut # (Auto) (1.7-7.0) K/uL Lymph # (Auto) (0.90-2.90) K/uL [place] # (Auto) (0.00-0.90) K/UL Eos # (Auto) (0.00-0.50) K/uL Baso # (Auto) (0.00-0.30) K/uL ABG pH 7.26 L (7.35-7.45) ABG pCO2 74 H* (35-45) mmHG ABG pO2 97.2 (80-105) mmHG ABG HCO3 33 H (21-28) mmol/L ABG Total CO2 31 H (21-30) mmol/l ABG O2 Saturation 97 (92-100) % ABG Base Excess 3.6 H (-3.0-3.0) mmol/L Carboxyhemoglobin 2.9 (0.0-5.0) % Sodium (135-149) mmol/L Potassium (3.6-5.1) mmol/L Chloride (96-114) mmol/L Carbon Dioxide (20-32) mmol/L BUN (7-30) mg/dL Creatinine (0.5-1.5) mg/dL Estimated Creat Clear Estimated GFR ml/min Glucose (60-115) mg/dL Calcium (8.4-10.6) mg/dL Total Bilirubin (0.1-1.5) mg/dL AST (12-35) U/L ALT (4-35) U/L Alkaline Phosphatase (40-150) U/L Troponin I (0.01-0.04) ng/mL Total Protein (6.0-8.3) g/dL Albumin (3.3-5.0) g/dL SARS-CoV-2 (PCR) (Negative) Influenza Type A (PCR) (Negative) Influenza Type B (PCR) (Negative) RSV (PCR) (Negative) POC Troponin I 0.02 (0.01-0.04) ng/ml Discharge Plan Discharge Clinical Impression: Acute exacerbation of chronic obstructive pulmonary disease Patient Disposition: Admitted As Inpatient Condition: Improved Prescriptions: No Action [id number] 100-62.5-25 mcg blister with device inhalation DAILY duloxetine 60 mg capsule,delayed release(DR/EC) 60 mg PO BID rosuvastatin 5 mg tablet 5 mg PO DAILY cyclobenzaprine 5 mg tablet 5 mg PO .Bedtime as needed PRN aripiprazole 10 mg tablet 5 mg PO BID albuterol sulfate 90 mcg/actuation HFA aerosol inhaler 2 inhalation PRN gabapentin 300 mg capsule 1,200 mg PO TID cyanocobalamin (vitamin B-12) 1,000 mcg/mL solution 1,000 mcg IM .Every 30 Days trazodone 50 mg tablet 50 - 100 mg PO .Bedtime as needed PRN albuterol sulfate 2.5 mg /3 mL (0.083 %) solution for nebulization inhalation PRN multivitamin Tablet 1 tab PO QAM varenicline 1 mg tablet 1 mg PO BID loratadine 10 mg tablet 10 mg PO DAILY furosemide 20 mg tablet 20 mg PO DAILY lisinopril 2.5 mg tablet 2.5 mg PO DAILY fluticasone propionate 50 mcg/actuation spray,suspension 2 intranasal DAILY ferrous fumarate-vitamin C PO Daliresp 500 mcg tablet 500 mcg PO QDAY carvedilol 3.125 mg tablet 3.125 mg PO Q12H acetaminophen [Tylenol Extra Strength] 500 mg tablet 500 mg PO Q6H PRN [place] Heartburn-Gas 750-80 mg tablet,chewable 1 tab PO Q2-4H PRN Rx Instructions: do not exceed 6 tabs per 24 hrs ipratropium-albuterol 0.5 mg-3 mg(2.5 mg base)/3 mL solution for nebulization 1 ml inhalation Q6-8H PRN (Reason: shortness of breath) Qty: 180 3RF prednisone 20 mg tablet 10 - 40 mg PO DAILY Qty: 18 0RF Rx Instructions: 40 MG PO DAILY FOR 5 DAYS, THEN 20 MG PO DAILY FOR 5 DAYS, THEN 10 MG PO DAILY FOR 5 DAYS. pramipexole 0.25 mg tablet 0.25 mg PO BID Qty: 180 3RF rivaroxaban 20 mg tablet 20 mg PO DAILY Qty: 90 3RF Rx Instructions: WITH MEAL Follow Up/Referrals: Jazz Michael MD [Primary Care Provider] -
--- NOTE | 2022-09-21 02:07 | ED.NURSE ---
Pt is drinking sips of water and is texting her family on her phone, to let them know she is staying at the hospital overnight.
--- NOTE | 2022-09-21 02:28 | ED.NURSE ---
Adjusted pt mask and checked skin on face. Skin on face appears intact, pt has no c/o of facial skin issues at this time, states mask is comfortable.
--- NOTE | 2022-09-21 03:38 | ED.NURSE ---
Report given to CCU nurse, pt transported up to CCU with all belongings and cell phone. Pt BiPap brought to room and setting reviewed with nurse.
[2022-09-21] MEDS: ACETAMINOPHEN 325 MG TABLET 650 MG PO (04:32)
[2022-09-21] MEDS: GUAIF/DM 200-20 MG/20 ML 118 ML LIQUID PO ×2 (04:33→17:41)
--- NOTE | 2022-09-21 04:42 | PM.IMCN1 ---
Date of Consult Consult date: 09/21/22 Primary Care Provider: Jazz Michael MD Consult Narrative Narrative: Sarah Jay is a 56 year old female [facility] Medical History (Updated 09/21/22 @ 02:12 by Petar Allen MD) Chronic hyponatremia Chronic obstructive pulmonary disease Chronic pain syndrome Dependent edema Essential hypertension Generalized anxiety disorder History of drug abuse History of DVT (deep vein thrombosis) History of hepatitis C History of suicide attempt (2016) Insomnia Left foot drop (2001) Morbid obesity Neurogenic bladder Neurogenic bowel Nicotine dependence Obstructive sleep apnea syndrome Peripheral neuropathic pain Pre-diabetes Radial neck fracture Restless legs syndrome Surgical History (Updated 09/21/22 @ 01:01 by Petar Allen MD) Cauda equina syndrome (2001) History of arthroscopy of right knee (09/02/15) History of section (06/23/87) History of cholecystectomy History of cone biopsy of cervix (1987) History of endometrial ablation (01/25/05) History of open reduction and internal fixation (ORIF) procedure (1996) History of Joaquin-en-Y gastric bypass History of tubal ligation (2004) Status post endovenous radiofrequency ablation (RFA) of saphenous vein (07/2017) Family History (Updated 09/21/22 @ 01:05 by Petar Allen MD) Other Coronary artery disease Social History (Updated 09/21/22 @ 01:04 by Petar Allen MD) Narrative: Lives alone, [place], Disabled, 4 kids, , smokes, rare EtOH, PCP Martina Michael Highest level of school completed/degree received: Associate degree: occupational, technical, vocational program Smoking Status: Current some day smoker What tobacco products do you use: cigarettes Years smoked: 40 Do you use any of these nicotine containing products: None Second hand tobacco smoke exposure: No How often do you have a drink containing alcohol: monthly or less Alcohol type: hard liquor How often do you have six or more drinks on one occasion: Never AUDIT-C Alcohol total score: 1 Non-prescribed substance use: denies use Caffeine: Yes (a lot of coffee) Little interest or pleasure in doing things: not at all Feeling down, depressed, or hopeless: not at all service: No Meds Home Medications and Allergies Home Medications Medication Instructions Recorded Confirmed Type albuterol sulfate 2.5 mg/3 mL mg inhalation PRN 02/26/22 06/21/22 History (0.083 %) solution for nebulization albuterol sulfate 90 mcg/actuation 2 inhalation PRN 02/26/22 06/21/22 History aerosol inhaler aripiprazole 10 mg tablet 5 mg PO BID 02/26/22 06/21/22 History cyanocobalamin (vitamin B-12) 1,000 mcg IM .Every 30 Days 02/26/22 06/21/22 History 1,000 mcg/mL injection solution cyclobenzaprine 5 mg tablet 5 mg PO .Bedtime as needed PRN 02/26/22 06/21/22 History duloxetine 60 mg capsule,delayed 60 mg PO BID 02/26/22 06/21/22 History release fluticasone fur. 100 mcg-umeclid inhalation DAILY 02/26/22 06/21/22 History 62.5 mcg-vilant 25 mcg inhalat.powder furosemide 20 mg tablet 20 mg PO DAILY 02/26/22 06/21/22 History gabapentin 300 mg capsule 1,200 mg PO TID 02/26/22 06/21/22 History lisinopril 2.5 mg tablet 2.5 mg PO DAILY 02/26/22 06/21/22 History loratadine 10 mg tablet 10 mg PO DAILY 02/26/22 06/21/22 History multivitamin 1 tab PO QAM 02/26/22 06/21/22 History rosuvastatin 5 mg tablet 5 mg PO DAILY 02/26/22 06/21/22 History trazodone 50 mg tablet 50 - 100 mg PO .Bedtime as needed 02/26/22 06/21/22 History PRN varenicline 1 mg tablet 1 mg PO BID 02/26/22 06/21/22 History ferrous fumarate-vitamin C PO 02/27/22 06/21/22 History fluticasone propionate 50 2 intranasal DAILY 02/27/22 06/21/22 History mcg/actuation nasal spray,suspension roflumilast 500 mcg tablet 500 mcg PO QDAY 02/27/22 06/21/22 History (Daliresp) acetaminophen 500 mg tablet 500 mg PO Q6H PRN 03/07/22 06/21/22 History (Tylenol Extra Strength) calcium carbonate 750 1 tab PO Q2-4H PRN 03/07/22 06/21/22 History mg-simethicone 80 mg chewable tablet ([place] [facility]) carvedilol 3.125 mg tablet 3.125 mg PO Q12H 03/07/22 06/21/22 History Allergies Allergy/AdvReac Type Severity Reaction Status Date / Time cephalexin Allergy Intermediate Hives Verified 08/28/22 15:44 morphine Allergy Intermediate Hives Verified 08/28/22 15:44 Exam Const: Vital Signs, click to edit/add: Vital Signs - 24 hr 09/21/22 00:15 09/21/22 00:15 09/21/22 00:17 Temperature 96.8 F L Pulse Rate 86 Pulse Rate [Pulse Oximeter] 111 H Respiratory Rate 33 H Blood Pressure Blood Pressure [Le ft Arm] Blood Pressure [Le ft Upper Arm] 165/103 H Pulse Oximetry 100 100 97 Oxygen Delivery Me thod BiPAP OxyMask OxyMask Oxygen Flow Rate 12 12 Fraction of Inspir ed Oxygen 09/21/22 00:21 09/21/22 00:30 09/21/22 00:44 Temperature Pulse Rate 110 H 101 H 104 H Pulse Rate [Pulse Oximeter] Respiratory Rate Blood Pressure 165/103 H 174/113 H Blood Pressure [Le ft Arm] Blood Pressure [Le ft Upper Arm] Pulse Oximetry 100 100 98 Oxygen Delivery Me thod OxyMask OxyMask BiPAP Oxygen Flow Rate 12 12 Fraction of Inspir ed Oxygen 40 09/21/22 00:45 09/21/22 01:00 09/21/22 01:25 Temperature Pulse Rate 104 H 101 H Pulse Rate [Pulse Oximeter] Respiratory Rate Blood Pressure 140/68 H Blood Pressure [Le ft Arm] Blood Pressure [Le ft Upper Arm] Pulse Oximetry 98 95 95 Oxygen Delivery Me thod BiPAP BiPAP BiPAP Oxygen Flow Rate Fraction of Inspir ed Oxygen 30 30 30 09/21/22 01:02 09/21/22 01:15 09/21/22 01:22 Temperature Pulse Rate 100 97 97 Pulse Rate [Pulse Oximeter] Respiratory Rate 22 Blood Pressure 153/73 H 140/68 H Blood Pressure [Le ft Arm] Blood Pressure [Le ft Upper Arm] Pulse Oximetry 95 94 93 Oxygen Delivery Me thod BiPAP Oxygen Flow Rate Fraction of Inspir ed Oxygen 30 09/21/22 01:30 09/21/22 01:42 09/21/22 01:45 Temperature Pulse Rate 97 99 99 Pulse Rate [Pulse Oximeter] Respiratory Rate Blood Pressure 133/72 Blood Pressure [Le ft Arm] Blood Pressure [Le ft Upper Arm] Pulse Oximetry 93 94 94 Oxygen Delivery Me thod Oxygen Flow Rate Fraction of Inspir ed Oxygen 09/21/22 02:00 09/21/22 02:02 09/21/22 02:15 Temperature Pulse Rate 98 97 97 Pulse Rate [Pulse Oximeter] Respiratory Rate 22 Blood Pressure 135/64 Blood Pressure [Le ft Arm] Blood Pressure [Le ft Upper Arm] Pulse Oximetry 95 94 94 Oxygen Delivery Me thod BiPAP Oxygen Flow Rate Fraction of Inspir ed Oxygen 30 09/21/22 02:22 09/21/22 02:30 09/21/22 02:42 Temperature Pulse Rate 97 96 97 Pulse Rate [Pulse Oximeter] Respiratory Rate Blood Pressure 145/79 H 132/78 Blood Pressure [Le ft Arm] Blood Pressure [Le ft Upper Arm] Pulse Oximetry 94 94 94 Oxygen Delivery Me thod Oxygen Flow Rate Fraction of Inspir ed Oxygen 09/21/22 02:45 09/21/22 03:31 09/21/22 03:31 Temperature Pulse Rate 97 Pulse Rate [Pulse Oximeter] 95 Respiratory Rate 21 18 Blood Pressure Blood Pressure [Le ft Arm] 164/92 H Blood Pressure [Le ft Upper Arm] Pulse Oximetry 93 95 94 Oxygen Delivery Me thod BiPAP BiPAP Oxygen Flow Rate Fraction of Inspir ed Oxygen 30 Labs Labs: Short CBC 09/21/22 Range/Units 00:14 WBC 4.63 (4.50-11.00) K/uL Hgb 13.4 (12.0-16.0) gm/dL Hct 44.0 (33.0-51.0) % Plt Count 190 (140-440) K/uL BMP 09/21/22 00:14 Sodium 140 Potassium 4.7 Chloride 103 Carbon Dioxide 34 H BUN 12 Creatinine 0.5 Glucose 128 H Calcium 8.7 Cardiac Enzymes 09/21/22 Range/Units 00:14 Troponin I < 0.01 L (0.01-0.04) ng/mL Liver Function 09/21/22 Range/Units 00:14 Total Bilirubin 0.5 (0.1-1.5) mg/dL AST 32 (12-35) U/L ALT 27 (4-35) U/L Alkaline Phosphatase 86 (40-150) U/L Albumin 4.2 (3.3-5.0) g/dL Assessment and Plan Assessment and plan (1) Acute exacerbation of chronic obstructive pulmonary disease: Status: Acute Plan [facility] Hospitalist eHospitalist was contacted with request of consultation for patient presenting with acute COPD exacerbation with hypoxic and hypercapnic respiratory failure History of present illness: The patient is a 56-year-old morbidly obese woman with a history of severe COPD with multiple exacerbations and intubation twice in the past, obstructive sleep apnea, hypertension, history of DVT 3 years ago on rivaroxaban who had severe worsening of her breathing yesterday. She was using her nebulizer every 2 hours with minimal relief and when seen by EMS was placed on BiPAP in the field. She was on FiO2 of 30% when she arrived in the ER with O2 sats of 92 to 95% but she was tachypneic to almost 30 to 35/min and could barely speak a couple of sentences. She was given Solu-Medrol 125 mg IV, multiple nebs and magnesium with some improvement in symptoms. The patient has had multiple exacerbations recently with a recent ER visit as well. When I spoke to the patient on video she was still on BiPAP and felt somewhat better and could speak more comfortably without respiratory distress even with the BiPAP mask on. She said that her COPD usually gets bad during the winter months and its been very cold lately. She still continues to smoke. She denies any fever or chills. She has an ongoing cough but denies any expectoration of mucoid or purulent sputum. She has chest tightness rather than chest pain. She is compliant with her medications at home. She is normally not on home oxygen. No nausea vomiting or diarrhea. Her flu panel and COVID test were negative. Home Medications: see EMR Pertinent Medical History: As per HPI Pertinent Social History: Still smoking Exam (performed via interactive video with assistance of bedside nurse): Temperature 96.8 blood pressure 164/92 mmHg pulse 95 respiratory rate decreased to 18 to 20/min start on BiPAP with settings of IPAP 12 EPAP 5 rate of 10 FiO2 of 30% General: alert, cooperative, moderately dyspneic HEENT: oral mucosa pink and moist without erythema Lungs: clear to auscultation bilaterally without crackle or wheeze CV: regular rate and rhythm without loud murmur rub or gallop Abd: denies tenderness and does not exhibit signs of pain with palpation done by bedside nurse Ext: no pitting edema noted Skin: no rashes, bruises or lesions appreciated on gross visualization of exposed skin Neuro:[alert, oriented x 3. facial muscles grossly intact, moves all extremities without any significant focal deficit appreciated by nurse Pertinent labs and imaging WBC 4.63 hemoglobin 13.4 ABG pH 7.26 PCO2 74 PO2 97 bicarb 33 BUN 12 creatinine 0.5 normal serum electrolytes troponin less than 0.01 Chest x-ray no acute infiltrates Assessment and Plan: The patient presents with acute on chronic hypoxic and hypercapnic respiratory failure in the setting of acute COPD exacerbation likely triggered by the very cold weather and ongoing smoking. There is no evidence of infection on chest x-ray and there has been no change in the quantity or quality of sputum and therefore I do not think antibiotics are needed. Unlikely that she is having a pulmonary embolism; in any case she is on rivaroxaban for history of DVT 3 years ago. She is usually compliant with her medications. -Continue on BiPAP at current settings and wean as tolerated. I spoke to the nurse and we have eRT available for respiratory issues at night. -I think she will need another 24 hours of systemic steroids. Methylprednisolone 40 mg IV every 6 ordered starting at 8 AM for 24 hours. Subsequently, depending on clinical response at least he can be transitioned to oral steroids -Continue duo nebs and home medications for COPD including Trelegy. -Continue rivaroxaban -We will get ABG in the morning to follow-up improvement in hypercarbia and hypoxia. -Tylenol as needed for headache, and Robitussin-DM for cough as needed Thank you [facility]. This service is available for further assistance as requested by your care team by calling [phone].
--- NOTE | 2022-09-21 05:57 | PC.NURSE ---
patient arrived to floor approx 0300, using BiPAP, settings of Ipap-12 Epap-5 Rate-10 and FiO2-30, tolerating well, sats in low to mid 90's RR 18-20. SOB with exertion to BR, denies SOB at rest with BiPAP on but did have it at home. mostly independent in room, just needs help with tubing from equipment. declined nicotine patch. rating headache 6/10, prn tylenol administered and patient slept. vitals completed q2h
[2022-09-21 07:26] LABS: Base Excess ABG 5.3 mmol/L (-3.0-3.0); Carboxyhemoglobin* 2.3 % (0.0-5.0); HCO3 ABG 33 mmol/L (21-28); Oxygen Saturation ABG 91 % (92-100); TCO2 ABG 30 mmol/l (21-30); pH ABG 7.34 (7.35-7.45)
[2022-09-21 07:30] LABS: ABG PCO2 61 mmHG (35-45)
[2022-09-21 08:20] LABS: Procalcitonin* 0.04 ng/mL (<0.50)
[2022-09-21 08:30] LABS: NT Pro B Type NatriureticPept* 155 pg/mL
[2022-09-21] MEDS: LORATADINE 10 MG TABLET PO (09:25)
[2022-09-21] MEDS: DULOXETINE 30 MG CAPSULE DR 60 MG PO ×2 (09:25→20:27)
[2022-09-21] MEDS: levoFLOXacin 750 MG TABLET PO (09:25)
[2022-09-21] MEDS: lisinopriL 5 MG TABLET 2.5 MG PO (09:25)
[2022-09-21] MEDS: RIVAROXABAN 10 MG TABLET 20 MG PO (09:25)
[2022-09-21] MEDS: GABAPENTIN 600 MG TABLET 1200 MG PO ×3 (09:26→20:27)
[2022-09-21] MEDS: FUROSEMIDE 20 MG TABLET PO (09:26)
[2022-09-21] MEDS: PRAMIPEXOLE 0.25 MG TABLET PO ×2 (09:26→17:39)
[2022-09-21] MEDS: carvediloL 6.25 MG TABLET 3.125 MG PO ×2 (09:26→20:26)
[2022-09-21] MEDS: ARIPiprazole 10 MG TABLET 5 MG PO ×2 (09:26→20:23)
[2022-09-21] MEDS: SODIUM CHLORIDE 0.9 % (FLUSH) 10 ML SYRINGE 5 ML IVF ×2 (09:27→20:29)
[2022-09-21] MEDS: FLUTICASONE PROPIONATE NASAL 2 SPRAY NOSTRIL-B (09:27)
--- NOTE | 2022-09-21 12:01 | PM.IMHP1 ---
Hospitalist- H&P: EDUARDA History of Present Illness Date Seen: 09/21/22 Chief complaint: Shortness of breath Narrative: Sarah Jay is a 56 year old female with severe COPD admitted through the emergency department with acute on chronic dyspnea. Patient reports she has been struggling with her breathing for the past month. In reviewing her records I see that she was seen in urgent care at the beginning of June when she had a positive COVID test and 2 weeks of symptoms. Treated with antibiotic and prednisone at that time. She was then seen in the emergency department at the end of July when she was again treated with prednisone. August 28 she was seen and started on prednisone again. She tells me she has tapered off the prednisone which was down to 10 mg daily 2 days ago. Her chronic dyspnea became acutely worse in the last 2 days. She has not had a fever. She has a chronic cough. It is nonproductive. She has got no chest pain. No upper respiratory symptoms. She has a history of a DVT in his and chronic anticoagulation with Xarelto. She continues to smoke but reports minimal smoking recently, 1 cigarette a day. She has been hospitalized in the past for COPD. About 3 years ago she was hospitalized for what sounds like a cardiac problem but did require intubation. Review of Systems Narrative: She reports other than her breathing problems she has not really had any other health concerns recently. [facility] Medical History Chronic hyponatremia Chronic obstructive pulmonary disease Chronic pain syndrome Dependent edema Essential hypertension Generalized anxiety disorder History of drug abuse History of DVT (deep vein thrombosis) History of hepatitis C History of suicide attempt (2016) Insomnia Left foot drop (2001) Morbid obesity Neurogenic bladder Neurogenic bowel Nicotine dependence Obstructive sleep apnea syndrome Peripheral neuropathic pain Pre-diabetes Radial neck fracture Restless legs syndrome Surgical History Cauda equina syndrome (2001) History of arthroscopy of right knee (09/02/15) History of section (06/23/87) History of cholecystectomy History of cone biopsy of cervix (1987) History of endometrial ablation (01/25/05) History of open reduction and internal fixation (ORIF) procedure (1996) History of Joaquin-en-Y gastric bypass History of tubal ligation (2004) Status post endovenous radiofrequency ablation (RFA) of saphenous vein (07/2017) Family History Other Coronary artery disease Social History (Updated 09/21/22 @ 12:12 by Júnior Dominguez MD) Narrative: Two daughters are healthcare power of estate planning attorney. Code status is full. Lives alone, [place], Disabled, 4 kids, , smokes, rare EtOH, PCP Fernanda, Martina Yee Highest level of school completed/degree received: Associate degree: occupational, technical, vocational program Smoking Status: Current some day smoker What tobacco products do you use: cigarettes Years smoked: 40 Do you use any of these nicotine containing products: None Second hand tobacco smoke exposure: No How often do you have a drink containing alcohol: monthly or less Alcohol type: hard liquor How often do you have six or more drinks on one occasion: Never AUDIT-C Alcohol total score: 1 Non-prescribed substance use: denies use Caffeine: Yes (a lot of coffee) Little interest or pleasure in doing things: not at all Feeling down, depressed, or hopeless: not at all service: No Meds Home Medications and Allergies Home Medications Medication Instructions Recorded Confirmed Type albuterol sulfate 2.5 mg/3 mL 2.5 mg inhalation TID PRN 02/26/22 09/21/22 History (0.083 %) solution for nebulization albuterol sulfate 90 mcg/actuation 2 puff inhalation Q4H PRN 02/26/22 09/21/22 History aerosol inhaler aripiprazole 10 mg tablet 5 mg PO BID 02/26/22 09/21/22 History cyanocobalamin (vitamin B-12) 1,000 mcg IM Q30D 02/26/22 09/21/22 History 1,000 mcg/mL injection solution cyclobenzaprine 5 mg tablet 5 mg PO HS PRN 02/26/22 09/21/22 History duloxetine 60 mg capsule,delayed 60 mg PO BID 02/26/22 09/21/22 History release furosemide 20 mg tablet 20 mg PO DAILY 02/26/22 09/21/22 History gabapentin 300 mg capsule 1,200 mg PO TID 02/26/22 09/21/22 History lisinopril 2.5 mg tablet 2.5 mg PO DAILY 02/26/22 09/21/22 History loratadine 10 mg tablet 10 mg PO DAILY 02/26/22 09/21/22 History multivitamin 1 tab PO DAILY 02/26/22 09/21/22 History rosuvastatin 5 mg tablet 5 mg PO DAILY 02/26/22 09/21/22 History trazodone 50 mg tablet 50 - 100 mg PO HS PRN 02/26/22 09/21/22 History fluticasone propionate 50 2 spray intranasal DAILY 02/27/22 09/21/22 History mcg/actuation nasal spray,suspension roflumilast 500 mcg tablet 500 mcg PO DAILY 02/27/22 09/21/22 History (Daliresp) acetaminophen 500 mg tablet 500 mg PO Q6H PRN 03/07/22 09/21/22 History (Tylenol Extra Strength) calcium carbonate 750 1 tab PO Q2-4H PRN 03/07/22 09/21/22 History mg-simethicone 80 mg chewable tablet (Solange-Pillow Heartburn-Gas) carvedilol 3.125 mg tablet 3.125 mg PO BID 03/07/22 09/21/22 History ferrous fumarate 200 mg (65 mg 1 tab PO DAILY 09/21/22 09/21/22 History iron)-vit C 25 mg tablet,extend release (Sindy-Sequels (iron-vit c)) fluticasone fur. 200 mcg-umeclid 1 inh inhalation DAILY 09/21/22 09/21/22 History 62.5 mcg-vilant 25 mcg inhalat.powder (Trelegy Ellipta) pramipexole 0.25 mg tablet 0.25 mg PO BID@09,16 09/21/22 09/21/22 History pramipexole 0.75 mg tablet 0.75 mg PO HS 09/21/22 09/21/22 History Allergies Allergy/AdvReac Type Severity Reaction Status Date / Time cephalexin Allergy Intermediate Hives Verified 08/28/22 15:44 morphine Allergy Intermediate Hives Verified 08/28/22 15:44 Exam Narrative: Exam Narrative: She is wearing BiPAP. She is alert and able to answer questions with minimal communication difficulties due to the BiPAP mask. She has apparent increased work of breathing and increased rate of breathing. She is able to speak in full sentences however. Eyes are normal. Oropharynx with small airway. Neck is supple without mass or adenopathy. Respirations with marked decreased breath sounds in all lung prater. Prolonged expiratory phase. No consolidation or significant wheezing. Cardiovascular: S1, S2, regular rate and rhythm. No murmur gallop or rub. Abdomen: Bowel sounds active. Abdomen is soft without tenderness or mass. External genitalia normal. Extremities normal. No edema. Intact peripheral pulses. She moves all 4 extremities well. Const: Vital Signs, click to edit/add: Vital Signs - 24 hr 09/21/22 00:15 09/21/22 00:15 09/21/22 00:17 Temperature 96.8 F L Pulse Rate 86 Pulse Rate [Pulse Oximeter] 111 H Respiratory Rate 33 H Blood Pressure Blood Pressure [Le ft Arm] Blood Pressure [Le ft Upper Arm] 165/103 H Pulse Oximetry 100 100 97 Oxygen Delivery Me thod BiPAP OxyMask OxyMask Oxygen Flow Rate 12 12 Fraction of Inspir ed Oxygen 09/21/22 00:21 09/21/22 00:30 09/21/22 00:44 Temperature Pulse Rate 110 H 101 H 104 H Pulse Rate [Pulse Oximeter] Respiratory Rate Blood Pressure 165/103 H 174/113 H Blood Pressure [Le ft Arm] Blood Pressure [Le ft Upper Arm] Pulse Oximetry 100 100 98 Oxygen Delivery Me thod OxyMask OxyMask BiPAP Oxygen Flow Rate 12 12 Fraction of Inspir ed Oxygen 40 09/21/22 00:45 09/21/22 01:00 09/21/22 01:25 Temperature Pulse Rate 104 H 101 H Pulse Rate [Pulse Oximeter] Respiratory Rate Blood Pressure 140/68 H Blood Pressure [Le ft Arm] Blood Pressure [Le ft Upper Arm] Pulse Oximetry 98 95 95 Oxygen Delivery Me thod BiPAP BiPAP BiPAP Oxygen Flow Rate Fraction of Inspir ed Oxygen 30 30 30 09/21/22 01:02 09/21/22 01:15 09/21/22 01:22 Temperature Pulse Rate 100 97 97 Pulse Rate [Pulse Oximeter] Respiratory Rate 22 Blood Pressure 153/73 H 140/68 H Blood Pressure [Le ft Arm] Blood Pressure [Le ft Upper Arm] Pulse Oximetry 95 94 93 Oxygen Delivery Me thod BiPAP Oxygen Flow Rate Fraction of Inspir ed Oxygen 30 09/21/22 01:30 09/21/22 01:42 09/21/22 01:45 Temperature Pulse Rate 97 99 99 Pulse Rate [Pulse Oximeter] Respiratory Rate Blood Pressure 133/72 Blood Pressure [Le ft Arm] Blood Pressure [Le ft Upper Arm] Pulse Oximetry 93 94 94 Oxygen Delivery Me thod Oxygen Flow Rate Fraction of Inspir ed Oxygen 09/21/22 02:00 09/21/22 02:02 09/21/22 02:15 Temperature Pulse Rate 98 97 97 Pulse Rate [Pulse Oximeter] Respiratory Rate 22 Blood Pressure 135/64 Blood Pressure [Le ft Arm] Blood Pressure [Le ft Upper Arm] Pulse Oximetry 95 94 94 Oxygen Delivery Me thod BiPAP Oxygen Flow Rate Fraction of Inspir ed Oxygen 30 09/21/22 02:22 09/21/22 02:30 09/21/22 02:42 Temperature Pulse Rate 97 96 97 Pulse Rate [Pulse Oximeter] Respiratory Rate Blood Pressure 145/79 H 132/78 Blood Pressure [Le ft Arm] Blood Pressure [Le ft Upper Arm] Pulse Oximetry 94 94 94 Oxygen Delivery Me thod Oxygen Flow Rate Fraction of Inspir ed Oxygen 09/21/22 02:45 09/21/22 03:31 09/21/22 03:31 Temperature Pulse Rate 97 Pulse Rate [Pulse Oximeter] 95 Respiratory Rate 21 18 Blood Pressure Blood Pressure [Le ft Arm] 164/92 H Blood Pressure [Le ft Upper Arm] Pulse Oximetry 93 95 94 Oxygen Delivery Me thod BiPAP BiPAP Oxygen Flow Rate Fraction of Inspir ed Oxygen 30 09/21/22 04:58 09/21/22 04:55 09/21/22 03:30 Temperature Pulse Rate 98 Pulse Rate [Pulse Oximeter] 90 Respiratory Rate 20 18 18 Blood Pressure 146/85 H Blood Pressure [Le ft Arm] 146/85 H Blood Pressure [Le ft Upper Arm] Pulse Oximetry 94 94 Oxygen Delivery Me thod BiPAP BiPAP Oxygen Flow Rate Fraction of Inspir ed Oxygen 30 30 09/21/22 07:36 09/21/22 07:36 09/21/22 08:01 Temperature 97.2 F L Pulse Rate Pulse Rate [Pulse Oximeter] 85 Respiratory Rate 16 Blood Pressure Blood Pressure [Le ft Arm] 153/99 H Blood Pressure [Le ft Upper Arm] Pulse Oximetry 93 Oxygen Delivery Me thod BiPAP BiPAP Oxygen Flow Rate Fraction of Inspir ed Oxygen 0.21 0.30 09/21/22 10:03 02/03/23 10:11 09/21/22 10:40 Temperature 98 F Pulse Rate 87 Pulse Rate [Pulse Oximeter] 87 Respiratory Rate 18 Blood Pressure Blood Pressure [Le ft Arm] 149/103 H Blood Pressure [Le ft Upper Arm] Pulse Oximetry 91 92 Oxygen Delivery Me thod BiPAP Oxygen Flow Rate Fraction of Inspir ed Oxygen 09/21/22 11:33 Temperature 98 F Pulse Rate Pulse Rate [Pulse Oximeter] 82 Respiratory Rate 20 Blood Pressure Blood Pressure [Le ft Arm] 148/97 H Blood Pressure [Le ft Upper Arm] Pulse Oximetry 92 Oxygen Delivery Me thod BiPAP Oxygen Flow Rate Fraction of Inspir ed Oxygen Documenting provider has reviewed patient's vital signs: yes Hospitalist - H&P: Result Labs Labs: Short CBC 09/21/22 Range/Units 00:14 WBC 4.63 (4.50-11.00) K/uL Hgb 13.4 (12.0-16.0) gm/dL Hct 44.0 (33.0-51.0) % Plt Count 190 (140-440) K/uL BMP 09/21/22 00:14 Sodium 140 Potassium 4.7 Chloride 103 Carbon Dioxide 34 H BUN 12 Creatinine 0.5 Glucose 128 H Calcium 8.7 Cardiac Enzymes 09/21/22 Range/Units 00:14 Troponin I < 0.01 L (0.01-0.04) ng/mL Liver Function 09/21/22 Range/Units 00:14 Total Bilirubin 0.5 (0.1-1.5) mg/dL AST 32 (12-35) U/L ALT 27 (4-35) U/L Alkaline Phosphatase 86 (40-150) U/L Albumin 4.2 (3.3-5.0) g/dL Assessment and Plan Assessment and plan (1) Acute exacerbation of chronic obstructive pulmonary disease: Problem comment: Has respiratory acidosis with CO2 retention and hypoxia. Requiring BiPAP. Currently on pressures of 16 in 8 with FiO2 of 21. Status: Acute (2) Chronic obstructive pulmonary disease: Problem comment: Noted on [facility] notes as far back as 2013. PFTs at [address] 12/12/2020 revealed severe obstructive lung disease. Seeing Dr. Yee ([facility]) since 2020. Based on recurrent problems this winter patient appears to have clinically severe COPD Status: Chronic (3) Morbid obesity: Status: Chronic (4) Obstructive sleep apnea syndrome: Status: Chronic (5) History of DVT (deep vein thrombosis): Problem comment: Bilateral lower extremity deep vein thrombosis noted on ultrasound 08/06, on life-long Xarelto, had previous DVT (left), late Status: Acute (6) Chronic hyponatremia: Status: Acute (7) Generalized anxiety disorder: Problem comment: BILLY Carcamo, in psychiatry for medication management at [facility] in [place]. Also sees Alyssa Gallagher, a therapist, in [place] Status: Chronic Plan Continue CCU status for respiratory failure with BiPAP. Systemic corticosteroids plus inhaled bronchodilators. Levaquin. No definite respiratory infection identified. Patient has required prednisone for much of the winter. This is likely to be challenging to manage in the short and intermediate term Critical care time is 70 minutes
[2022-09-21] MEDS: predniSONE 20 MG TABLET 60 MG PO (13:55)
--- NOTE | 2022-09-21 17:21 | PC.NURSE ---
Shift Summary: Patient pleasant and cooperative. Up independently after staff assist with taking off BiPAP. Tolerating Bipap well with breaks of 20min as needed, RA when not on BiPAP. Vitals stable and WNL. Denies pain/headache. Some SOB following ambulation however recovers quickly, when up do bathroom requires 02 @ 5L/oxymask. Alert and oriented, using call light appropriately. o2 sats 90-95% throughout shift.
[2022-09-21] MEDS: ROSUVASTATIN CALCIUM 10 MG TABLET 5 MG PO (20:24)
[2022-09-21] MEDS: PRAMIPEXOLE 0.25 MG TABLET 0.75 MG PO (20:26)
[2022-09-21] MEDS: MULTIVITAMIN/MINERALS 1 TABLET 1 TAB PO (20:27)
[2022-09-22] VITALS (14 sets, daily range): BP systolic 118–145; BP diastolic 73–93; PULSE 67–109; RESP 18–21; TEMP 36.5–36.6; O2SAT 89–94
[2022-09-22] MEDS: ACETAMINOPHEN 325 MG TABLET 650 MG PO (04:10)
--- NOTE | 2022-09-22 06:48 | PC.NURSE ---
Shift note: Pt tolerates BiPAP with no sings of agitation, she keeps it on throughout the whole shift, off for the BR breaks. O2 sats 88-92%, she reports less SOB, she denies chest pain.
[2022-09-22 07:20] LABS: Basophils Absolute Auto 0.01 K/uL (0.00-0.30); Basophils Percent Auto 0.2 % (0.0-3.0); Eosinophils Absolute Auto 0.03 K/uL (0.00-0.50); Eosinophils Percent Auto 0.5 % (0.0-7.0); Lymphocytes Percent Auto 16.7 % (20-44); Mean Corpuscular HGB Conc 31 gm/dL (32-36); Mean Corpuscular Hemoglobin 27 pg (26-34); Mean Corpuscular Volume 89 fL (80-100); Monocytes Percent Auto 11.5 % (0.0-11.0); Neutrophils Absolute Auto 3.97 K/uL (1.7-7.0); Neutrophils Percent Auto 71.1 % (42.0-72.0); Platelet Count* 176 K/uL (140-440); Red Blood Count 4.39 m/uL (4.00-5.20); White Blood Count* 5.58 K/uL (4.50-11.00)
[2022-09-22 07:22] LABS: Slide Review Reflex No
[2022-09-22] MEDS: GUAIF/DM 200-20 MG/20 ML 118 ML LIQUID PO (07:31)
[2022-09-22] MEDS: predniSONE 20 MG TABLET 60 MG PO (07:31)
[2022-09-22 07:35] LABS: HCO3 VBG 33 mmol/L (21-28); PCO2 VBG 53 mmHG (40-50); PO2 VBG 50.5 mmHG (25-47); pH VBG 7.401 (7.32-7.43)
[2022-09-22 07:50] LABS: Chloride* 103 mmol/L (96-114); Potassium* 4.1 mmol/L (3.6-5.1); Sodium* 135 mmol/L (135-149)
[2022-09-22 07:53] LABS: Blood Urea Nitrogen* 13 mg/dL (7-30); Calcium* 8.5 mg/dL (8.4-10.6); Carbon Dioxide* 31 mmol/L (20-32); Creatinine* 0.4 mg/dL (0.5-1.5); Est. Creatinine Clearance* 162.19; Estimated Glomerular Filt Rate 118 ml/min; Glucose* 111 mg/dL (60-115)
[2022-09-22] MEDS: lisinopriL 5 MG TABLET 2.5 MG PO (08:24)
[2022-09-22] MEDS: DULOXETINE 30 MG CAPSULE DR 60 MG PO ×2 (08:24→20:57)
[2022-09-22] MEDS: FUROSEMIDE 20 MG TABLET PO (08:24)
[2022-09-22] MEDS: GABAPENTIN 600 MG TABLET 1200 MG PO ×3 (08:24→20:58)
[2022-09-22] MEDS: PRAMIPEXOLE 0.25 MG TABLET PO ×2 (08:25→15:44)
[2022-09-22] MEDS: LORATADINE 10 MG TABLET PO (08:25)
[2022-09-22] MEDS: FLUTICASONE PROPIONATE NASAL 2 SPRAY NOSTRIL-B (08:25)
[2022-09-22] MEDS: IPRAT-ALBUT 0.5-2.5 MG/3 ML NEB 1 NEB IH ×3 (08:25→20:58)
[2022-09-22] MEDS: carvediloL 6.25 MG TABLET 3.125 MG PO ×2 (08:25→20:56)
[2022-09-22] MEDS: ARIPiprazole 10 MG TABLET 5 MG PO ×2 (08:26→20:55)
[2022-09-22] MEDS: SODIUM CHLORIDE 0.9 % (FLUSH) 10 ML SYRINGE 5 ML IVF ×2 (08:27→21:03)
[2022-09-22] MEDS: RIVAROXABAN 10 MG TABLET 20 MG PO (08:27)
[2022-09-22] MEDS: levoFLOXacin 750 MG TABLET PO (09:46)
--- NOTE | 2022-09-22 12:03 | PM.IMPN1 ---
Progress Note: A&P Assessment and plan (1) Acute on chronic respiratory failure with hypercapnia: Problem details: Acutely acidotic and with an elevated CO2 greater than 70 upon presentation. She has stabilized nicely with steroids, antibiotics and BiPAP. We are currently weaning her off the BiPAP. May need home oxygen. Continue current therapies. Status: Acute (2) Acute exacerbation of chronic obstructive pulmonary disease: Problem details: Continue current therapies with Levaquin and prednisone. She is weaned to nasal cannula oxygen. She still sounds wheezy. We will continue current cares. May consider home oxygen. Status: Acute (3) Morbid obesity: Status: Chronic (4) Generalized anxiety disorder: Problem details: BILLY Carcamo, in psychiatry for medication management at [facility] in [place]. Also sees Alyssa Gallagher, a therapist, in [place] Status: Chronic (5) Nicotine dependence: Problem details: Nonchalant regarding this behavior. Little insight. Status: Chronic Subjective Date Seen: 09/22/22 Interval history: Daily Progress Note - Hospital Medicine Day #: 2 CC: Acute on chronic respiratory failure secondary to COPD exacerbation OVERNIGHT UPDATES FROM STAFF & MED, LAB, IMAGING UPDATES -seem to rest comfortably all night with BiPAP. Bypass been off since 03/17 this morning. She still feels very short of breath when getting up to the bathroom and moving around the room. Ever she relates feeling a lot better than she did when she presented. 130/76. Pulse 83. Respiratory 18. Temp 97.8?. O2 sats 94% on nasal cannula oxygen and this was at 2:30 p.m.. 09/22/2022 CBC unremarkable this morning. CO2 down to her baseline of 50s. In this presentation it was as high as 74 with a pH of 7.2. Her pH is now normal. Electrolytes are normal. Renal function is normal. Troponin undetectable. Procalcitonin was undetectable. I reviewed imaging through since admission. The chest x-ray yesterday was not repeated today. Echo done in 2019: LVEF estimated at 60 65% with normal size and thickness. Normal RV size. Normal PA pressures. -will update echo today, my concern is pulmonary hypertension. Objective: Vitals: see above Lungs: Scattered wheezes. Decreased at the bases. Cardiac: S1S2. Disposition/Potential discharge - Likely to return to previous living situation. Total time is 35 minutes with greater than 50% spent in counseling and coordination of care. Exam Const: Vital Signs, click to edit/add: Vital Signs - 24 hr 09/21/22 13:04 09/21/22 13:48 09/21/22 14:38 Temperature 98.2 F Pulse Rate 96 99 Pulse Rate [Pulse Oximeter] 105 H Respiratory Rate 18 Blood Pressure [Le ft Arm] 129/68 Pulse Oximetry 94 Oxygen Delivery Me thod BiPAP 09/21/22 15:41 09/21/22 18:00 09/21/22 20:00 Temperature 97.8 F 97.4 F L Pulse Rate 94 Pulse Rate [Pulse Oximeter] 96 101 H Respiratory Rate 20 20 Blood Pressure [Le ft Arm] 153/89 H 109/80 Pulse Oximetry 91 91 Oxygen Delivery Me thod BiPAP BiPAP 09/21/22 20:00 09/21/22 22:00 09/21/22 23:00 Temperature 97.8 F 97.8 F Pulse Rate 74 Pulse Rate [Pulse Oximeter] 95 86 Respiratory Rate 22 22 Blood Pressure [Le ft Arm] 140/81 H 142/87 H Pulse Oximetry 91 92 Oxygen Delivery Me thod Room Air BiPAP 09/22/22 00:00 09/22/22 02:00 09/22/22 03:00 Temperature 98 F Pulse Rate 91 Pulse Rate [Pulse Oximeter] 82 93 Respiratory Rate 20 18 Blood Pressure [Le ft Arm] 143/91 H Pulse Oximetry 89 91 Oxygen Delivery Me thod BiPAP BiPAP 09/22/22 04:20 09/22/22 06:00 09/22/22 07:14 Temperature 98 F 98 F Pulse Rate 67 Pulse Rate [Pulse Oximeter] 82 86 Respiratory Rate 18 21 Blood Pressure [Le ft Arm] 145/93 H Pulse Oximetry 91 92 Oxygen Delivery Me thod BiPAP BiPAP 09/22/22 07:34 09/22/22 09:53 09/22/22 09:53 Temperature 97.8 F 97.8 F Pulse Rate Pulse Rate [Pulse Oximeter] 80 75 Respiratory Rate 18 18 Blood Pressure [Le ft Arm] 141/83 H 139/86 Pulse Oximetry 91 91 93 Oxygen Delivery Me thod Room Air Room Air 09/22/22 09:54 09/22/22 10:55 Temperature Pulse Rate 76 Pulse Rate [Pulse Oximeter] Respiratory Rate 20 Blood Pressure [Le ft Arm] Pulse Oximetry 94 Oxygen Delivery Me thod Room Air Labs Labs: Laboratory Results - last 24 hr 09/22/22 09/22/22 09/22/22 06:35 06:35 06:35 WBC 5.58 RBC 4.39 Hgb 12.0 Hct 39.0 MCV 89 MCH 27 MCHC 31 L RDW Coeff of Sulma 15.0 Plt Count 176 Neut % (Auto) 71.1 Lymph % (Auto) 16.7 L [place] % (Auto) 11.5 H Eos % (Auto) 0.5 Baso % (Auto) 0.2 Neut # (Auto) 3.97 Lymph # (Auto) 0.90 [place] # (Auto) 0.60 Eos # (Auto) 0.03 Baso # (Auto) 0.01 VBG pH 7.401 VBG pCO2 53 H VBG pO2 50.5 H VBG HCO3 33 H Sodium 135 Potassium 4.1 Chloride 103 Carbon Dioxide 31 BUN 13 Creatinine 0.4 L Estimated Creat Clear 162.19 Estimated GFR 118 Glucose 111 Calcium 8.5
--- NOTE | 2022-09-22 18:41 | PC.NURSE ---
Shift Summary: Patient pleasant and cooperative. Tolerating being off BiPAP for most of shift, Bipap on during nap, otherwise patient has been maintaining o2 sats 90-93% on 1L/NC. Using incentive spirometer pr self, able to get up to 1500. Vitals stable and WNL, denies pain or nausea. Up independently in room.
[2022-09-22] MEDS: PRAMIPEXOLE 0.25 MG TABLET 0.75 MG PO (20:59)
[2022-09-22] MEDS: ROSUVASTATIN CALCIUM 10 MG TABLET 5 MG PO (21:00)
[2022-09-22] MEDS: MULTIVITAMIN/MINERALS 1 TABLET 1 TAB PO (21:00)
[2022-09-23] VITALS (10 sets, daily range): BP systolic 112–143; BP diastolic 64–96; PULSE 73–100; RESP 18–20; TEMP 36.3–36.6; O2SAT 90–94
[2022-09-23] MEDS: IPRAT-ALBUT 0.5-2.5 MG/3 ML NEB 1 NEB IH ×4 (03:02→20:59)
[2022-09-23] MEDS: TRAZODONE HCL 50 MG TABLET PO (03:08)
--- NOTE | 2022-09-23 04:54 | PC.NURSE ---
Pt has been doing well this shift, however complained of difficulty sleeping due to feeling of anxiety. PRN Trazodone given and appeared to be effective. O2 level during at the start of the shift was greater than 90 on 1L oxygen and used BIPAP during the sleep. Pt denied pain, SOB, cough, but had some degree of anxiety which was managed with the PRN Trazodone. Vitally stable.
--- NOTE | 2022-09-23 07:00 | CRLHL7_ITS ---
For Patients: As a result of the Century Cures Act, medical imaging exams and procedure reports are released immediately into your electronic medical record. You may view this report before your referring provider. If you have questions, please contact your health care provider. INDICATION: f/u COPD, hypoxia TECHNIQUE: Chest 2 views COMPARISON: 09/21/2022 FINDINGS: Cardiovascular and mediastinum: Heart size and vasculature are normal in caliber and appearance. Lungs and pleural spaces: Lungs are clear. No sign of infiltrate or mass. No sign of pleural effusion. No pneumothorax. Bones and soft tissues: No significant findings. IMPRESSION: No acute findings. Dictated by Petar Castillo MD @ 09/23/2022 7:12:11 AM (Electronically Signed)
[2022-09-23 07:14] LABS: HCO3 VBG 34 mmol/L (21-28); Ionized Calcium* 1.11 mmol/L (1.11-1.30); PCO2 VBG 52 mmHG (40-50); PO2 VBG 48.9 mmHG (25-47); pH VBG 7.418 (7.32-7.43)
[2022-09-23 07:57] LABS: Chloride* 103 mmol/L (96-114); Potassium* 4.2 mmol/L (3.6-5.1); Sodium* 135 mmol/L (135-149)
[2022-09-23 08:00] LABS: Blood Urea Nitrogen* 15 mg/dL (7-30); Carbon Dioxide* 30 mmol/L (20-32); Creatinine* 0.5 mg/dL (0.5-1.5); Est. Creatinine Clearance* 129.75; Estimated Glomerular Filt Rate 111 ml/min; Glucose* 104 mg/dL (60-115)
[2022-09-23 08:01] LABS: Calcium* 8.5 mg/dL (8.4-10.6); Magnesium* 1.9 mg/dL (1.5-2.6)
[2022-09-23] MEDS: DULOXETINE 30 MG CAPSULE DR 60 MG PO ×2 (08:53→20:57)
[2022-09-23] MEDS: carvediloL 6.25 MG TABLET 3.125 MG PO ×2 (08:54→20:56)
[2022-09-23] MEDS: predniSONE 20 MG TABLET 60 MG PO (08:54)
[2022-09-23] MEDS: levoFLOXacin 750 MG TABLET PO (08:54)
[2022-09-23] MEDS: GABAPENTIN 600 MG TABLET 1200 MG PO ×3 (08:54→20:58)
[2022-09-23] MEDS: lisinopriL 5 MG TABLET 2.5 MG PO (08:55)
[2022-09-23] MEDS: FUROSEMIDE 20 MG TABLET PO (08:55)
[2022-09-23] MEDS: ARIPiprazole 10 MG TABLET 5 MG PO ×2 (08:55→20:55)
[2022-09-23] MEDS: PRAMIPEXOLE 0.25 MG TABLET PO ×2 (08:55→15:59)
[2022-09-23] MEDS: LORATADINE 10 MG TABLET PO (08:55)
[2022-09-23] MEDS: RIVAROXABAN 10 MG TABLET 20 MG PO (08:55)
[2022-09-23] MEDS: FLUTICASONE PROPIONATE NASAL 2 SPRAY NOSTRIL-B (08:55)
[2022-09-23] MEDS: SODIUM CHLORIDE 0.9 % (FLUSH) 10 ML SYRINGE 5 ML IVF ×2 (08:59→21:01)
--- NOTE | 2022-09-23 11:58 | P.IMPN_ITS ---
Progress Note: A&P Assessment and plan (1) Acute on chronic respiratory failure with hypercapnia: Problem details: Acutely acidotic and with an elevated CO2 greater than 70 upon presentation. She has stabilized nicely with steroids, antibiotics and BiPAP. likely ready for discharge later today vs in the am I do have some concern the withdrawal of home o2 in 07/10 has caused her increased dyspnea and hospitalization. If she stays 2/5 pm - keep sats between 88-92 and only apply 1 Liter at a time to see what her needs are. Status: Acute (2) Acute exacerbation of chronic obstructive pulmonary disease: Problem details: Continue current therapies with Levaquin and prednisone. Status: Acute (3) Morbid obesity: Status: Chronic (4) Generalized anxiety disorder: Problem details: BILLY Carcamo, in psychiatry for medication management at [facility] in [place]. Also sees Alyssa Gallagher, a therapist, in [place] Status: Chronic (5) Nicotine dependence: Problem details: Nonchalant regarding this behavior. Little insight. Status: Chronic Subjective Date Seen: 09/23/22 Interval history: Daily Progress Note - Hospital Medicine Day #: 3 CC: Acute on chronic respiratory failure secondary to COPD exacerbation OVERNIGHT UPDATES FROM STAFF & MED, LAB, IMAGING UPDATES -used bipap again last night but wasn't on this all night. currently on room air. She feels she is improved. 126/64. Pulse 78. Respirations 20. Afebrile. O2 sat 92% on room air. CBC remains stable. PH today is normal 7.4, her baseline pCO2 is actually the lowest it has been since 08/14/2022 when measured by our lab. It is values 52 BMP normal. I reviewed imaging through since admission. Echo done yesterday. When compared to previous there has been no significant change. There is no elevated PA pressures to indicate pulmonary hypertension. Objective: Vitals: see above Lungs: Much better airation. only a single wheeze heard. Cardiac: S1S2. Disposition/Potential discharge - Likely to return to previous living situation. Total time is 35 minutes with greater than 50% spent in counseling and coordination of care. Exam Const: Vital Signs, click to edit/add: Vital Signs - 24 hr 09/22/22 14:18 09/22/22 14:27 09/22/22 19:00 Temperature 97.8 F 97.7 F Pulse Rate 91 Pulse Rate [Pulse Oximeter] 83 109 H Respiratory Rate 18 18 Blood Pressure [Le ft Arm] 130/76 118/73 Pulse Oximetry 94 94 Oxygen Delivery Me thod Nasal Cannula Nasal Cannula Oxygen Flow Rate 1 Fraction of Inspir ed Oxygen 09/22/22 19:00 09/22/22 23:00 09/22/22 23:00 Temperature Pulse Rate 92 92 Pulse Rate [Pulse Oximeter] 82 Respiratory Rate 18 Blood Pressure [Le ft Arm] Pulse Oximetry Oxygen Delivery Me thod Oxygen Flow Rate Fraction of Inspir ed Oxygen 09/22/22 23:00 09/23/22 03:00 09/23/22 03:00 Temperature 97.8 F 97.8 F Pulse Rate 79 Pulse Rate [Pulse Oximeter] 82 74 Respiratory Rate 18 18 Blood Pressure [Le ft Arm] 128/79 130/80 Pulse Oximetry 90 91 Oxygen Delivery Me thod Nasal Cannula Nasal Cannula Oxygen Flow Rate 1 1 Fraction of Inspir ed Oxygen 0.30 0.30 09/23/22 07:00 09/23/22 07:00 09/23/22 10:09 Temperature 97.4 F L Pulse Rate 100 Pulse Rate [Pulse Oximeter] 78 Respiratory Rate 18 Blood Pressure [Le ft Arm] 143/76 H Pulse Oximetry 94 90 Oxygen Delivery Me thod Room Air Oxygen Flow Rate Fraction of Inspir ed Oxygen 09/23/22 11:07 09/23/22 11:11 Temperature 97.9 F Pulse Rate 78 Pulse Rate [Pulse Oximeter] 78 Respiratory Rate 20 Blood Pressure [Le ft Arm] 126/64 Pulse Oximetry 92 Oxygen Delivery Me thod Room Air Oxygen Flow Rate Fraction of Inspir ed Oxygen Labs Labs: Laboratory Results - last 24 hr 09/23/22 09/23/22 05:48 05:48 VBG pH 7.418 VBG pCO2 52 H VBG pO2 48.9 H VBG HCO3 34 H Sodium 135 Potassium 4.2 Chloride 103 Carbon Dioxide 30 BUN 15 Creatinine 0.5 Estimated Creat Clear 129.75 Estimated GFR 111 Glucose 104 Calcium 8.5 Ionized Calcium Ayaz 1.11 Magnesium 1.9
--- NOTE | 2022-09-23 12:33 | RESP.RT ---
Patient siting up in bed, on room air, SaO2 93%, breathing regular/easy. Patient off/on BiPAP during the night, when off was on nasal Cannula 1 Lpm. BBS clear slightly diminished in both bases. Patient has home respiratory medications of DuoNeb and Albuterol. Patient uses as feels need at home. Discussed with patient use of these nebulized medications on a regular schedule. Using DuoNeb prior to bed time to assist in oxygenation. Starting the day with DuoNeb in the mornings. If up in middle of night do Albuterol neb treatment or MDI with extension. If patient stays another day, goal is Room air tonight unless patient decreased SaO2 <88%, then start with 1 Lpm Nasal Cannula.
--- NOTE | 2022-09-23 17:08 | PC.NURSE ---
Shift Summary: Patient pleasant and cooperative. Up independently, walked in halls today with staff, portable oximeter used during walk and patient able to maintain o2 sats >89%. Has been on RA all shift. Vitals stable and WNL. Denies pain or nausea. SOB with exertion however patient verbalized that she feels it has improved.
[2022-09-23] MEDS: PRAMIPEXOLE 0.25 MG TABLET 0.75 MG PO (20:59)
[2022-09-23] MEDS: ROSUVASTATIN CALCIUM 10 MG TABLET 5 MG PO (21:00)
[2022-09-23] MEDS: MULTIVITAMIN/MINERALS 1 TABLET 1 TAB PO (21:01)
[2022-09-24 03:00] VITALS: BP 156/96; PULSE 82; PULSE 99; RESP 18; TEMP 36.4; O2SAT 93
[2022-09-24] MEDS: IPRAT-ALBUT 0.5-2.5 MG/3 ML NEB 1 NEB IH ×2 (03:02→08:50)
--- NOTE | 2022-09-24 05:19 | PC.NURSE ---
Shift note: Pt was able maintain O2>90% on room throughout the shift. Other vital signs stable. Denied any pain, no SOB noted. Independently ambulated to and from BR.
[2022-09-24 06:18] LABS: HCO3 VBG 36 mmol/L (21-28); pH VBG 7.377 (7.32-7.43)
[2022-09-24 06:23] LABS: PCO2 VBG 61 mmHG (40-50)
[2022-09-24 07:00] VITALS: BP 159/84; PULSE 84; RESP 18; TEMP 36.8; O2SAT 93
[2022-09-24] MEDS: predniSONE 20 MG TABLET 60 MG PO (07:39)
[2022-09-24] MEDS: FLUTICASONE PROPIONATE NASAL 2 SPRAY NOSTRIL-B (08:49)
[2022-09-24] MEDS: ARIPiprazole 10 MG TABLET 5 MG PO (08:49)
[2022-09-24] MEDS: LORATADINE 10 MG TABLET PO (08:50)
[2022-09-24] MEDS: lisinopriL 5 MG TABLET 2.5 MG PO (08:50)
[2022-09-24] MEDS: DULOXETINE 30 MG CAPSULE DR 60 MG PO (08:50)
[2022-09-24] MEDS: RIVAROXABAN 10 MG TABLET 20 MG PO (08:51)
[2022-09-24] MEDS: FUROSEMIDE 20 MG TABLET PO (08:51)
[2022-09-24] MEDS: GABAPENTIN 600 MG TABLET 1200 MG PO (08:51)
[2022-09-24] MEDS: carvediloL 6.25 MG TABLET 3.125 MG PO (08:51)
[2022-09-24] MEDS: levoFLOXacin 750 MG TABLET PO (09:43)
[2022-09-24 10:00] VITALS: O2SAT 93
--- NOTE | 2022-09-24 10:34 | PM.DS1 ---
DS: Providers Provider Date Seen: 09/24/22 Date of admission: 09/22/22 11:38 Primary care physician: Jazz Michael MD Admitting Clinician: Lester Vergaar MD Consults: Respiratory Therapy Attending Physician on discharge: Fransisca Elias MD Date of Discharge: 09/24/22 DS: Diagnosis Discharge Diagnosis (1) Acute on chronic respiratory failure with hypercapnia: Status: Acute Problem details: Acutely acidotic and with an elevated CO2 greater than 70 upon presentation. Stabilized nicely with steroids, antibiotics and BiPAP; improved and requesting discharge home on 09/24/22. Followed by RT during stay, was able to taper off of supplemental oxygen and did not meet criteria for home oxygen per respiratory therapy discharge evaluation. She has an appointment set up with her raw stock dyeing machine tender later this month. (2) Acute exacerbation of chronic obstructive pulmonary disease: Status: Acute Problem details: Treated with Levaquin and prednisone; will taper prednisone upon discharge. (3) Morbid obesity: Status: Chronic (4) Generalized anxiety disorder: Status: Chronic Problem details: BILLY Carcamo, in psychiatry for medication management at [facility] in [place]. Also sees Alyssa Gallagher, a therapist, in [place] (5) Nicotine dependence: Status: Chronic Problem details: Patient did not require any specific nicotine replacement during stay; requested prescription for Chantix upon discharge. She has tolerated this medication in the past. DS: Summary Hospital Course Hospital Course: Patient is a 56-year-old female who was admitted to the hospital on 09/21 for acute respiratory distress in the setting of COPD exacerbation. Details noted above. She was initially treated with BiPAP and steroids; she was able to wean off of BiPAP and was stable on room air for the last 24 hours of hospital stay. Respiratory therapy followed patient and performed a home oxygen evaluation; she did not qualify for home O2 upon discharge. Patient is contemplative regarding smoking cessation and requests a prescription for Chantix upon discharge. She has tolerated this medication past with any untoward side effects. Time spent discussing smoking cessation with patient: 3 to 10 minutes Status at Discharge Functional status at discharge: independent ambulation Overall status at discharge: patient is progressing back to baseline Time Spent with Patient Time attestation: Total time spent providing and/or coordinating discharge services: Time spent: Greater than 30 minutes Specific discharge activities: Medication reconciliation, smoking cessation counseling, discussing plan of care with multidisciplinary team including respiratory therapy. Exam Narrative: Exam Narrative: GEN: Alert and oriented, sitting comfortably in bed and speaking in full sentences this morning, requesting discharge home HEENT: EOMIs bilaterally, no scleral icterus CV: RRR, No concerning murmurs, rubs, or gallops R: Decreased lung sounds at bilateral bases, but air movement is adequate. No concerning wheezing or rales Ext: wwp, no concerning edema Skin: No concerning skin lesions or rashes on exposed skin Neuro: Nonfocal Psych: Appropriate Const: Vital Signs, click to edit/add: Vital Signs - 24 hr 09/23/22 11:07 09/23/22 11:11 09/23/22 11:00 Temperature 97.9 F Pulse Rate 78 Pulse Rate [Pulse Oximeter] 78 Respiratory Rate 20 Blood Pressure [Le ft Arm] 126/64 Pulse Oximetry 92 Oxygen Delivery Me thod Room Air Fraction of Inspir ed Oxygen 21 09/23/22 11:00 09/23/22 14:47 09/23/22 14:49 Temperature 97.7 F Pulse Rate 100 Pulse Rate [Pulse Oximeter] 100 Respiratory Rate 18 18 Blood Pressure [Le ft Arm] 113/96 H Pulse Oximetry 93 93 Oxygen Delivery Me thod Room Air Room Air Fraction of Inspir ed Oxygen 09/23/22 19:00 09/23/22 19:00 09/23/22 23:00 Temperature 97.7 F Pulse Rate 99 99 Pulse Rate [Pulse Oximeter] 93 Respiratory Rate 18 Blood Pressure [Le ft Arm] 112/68 Pulse Oximetry 93 Oxygen Delivery Me thod Room Air Fraction of Inspir ed Oxygen 09/23/22 23:00 09/23/22 23:00 09/24/22 03:00 Temperature 97.5 F L Pulse Rate 99 Pulse Rate [Pulse Oximeter] 73 Respiratory Rate 18 18 Blood Pressure [Le ft Arm] 130/79 Pulse Oximetry 90 Oxygen Delivery Me thod Room Air Fraction of Inspir ed Oxygen 09/24/22 03:00 Temperature 97.5 F L Pulse Rate Pulse Rate [Pulse Oximeter] 82 Respiratory Rate 18 Blood Pressure [Le ft Arm] 156/96 H Pulse Oximetry 93 Oxygen Delivery Me thod Room Air Fraction of Inspir ed Oxygen DS: Data Data Completed and Pending Labs on day of discharge: Labs from last 24 hours 09/24/22 05:54 VBG pH 7.377 VBG pCO2 61 H* VBG pO2 35.0 VBG HCO3 36 H Discharge Plan Discharge Disposition: Home, Self-Care Date of Admission: 09/22/22 11:38 Attending Provider on Discharge: Fransisca Elias Primary Care Provider: Jazz Michael Condition: Improved Anticipated Discharge Date/Time: 09/23/22 12:05 Discharge Medications: New prednisone 20 mg Tablet 60 mg PO DAILYWM Qty: 20 0RF Rx Instructions: 40 mg (2 tabs) every morning from 09/24 - 09/28, 20mg (1 tab), 09/29 - 10/03. then 1/2 tab from 10/04-10/08. then use the 5mg prescription for the next set of days. Roflumilast 500 mcg PO DAILY Qty: 30 0RF prednisone 5 mg tablet 5 mg PO DAILY Qty: 7 12RF Rx Instructions: take daily after the taper with the 20mg, x 7 days. Then take 1/2 tab every other day for 10 days. levofloxacin 750 mg tablet 750 mg PO DAILY Qty: 2 0RF Rx Instructions: just finish two more tabs 09/24, 09/25 varenicline [Chantix Starting Month Box] 0.5 mg (11)- 1 mg (42) tablets,dose pack See Rx Instructions .ROUTE .COMPLEX Qty: 53 0RF Rx Instructions: orally per package directions Continued duloxetine 60 mg capsule,delayed release(DR/EC) 60 mg PO BID rosuvastatin 5 mg tablet 5 mg PO DAILY cyclobenzaprine 5 mg tablet 5 mg PO HS PRN aripiprazole 10 mg tablet 5 mg PO BID albuterol sulfate 90 mcg/actuation HFA aerosol inhaler 2 puff inhalation Q4H PRN gabapentin 300 mg capsule 1,200 mg PO TID cyanocobalamin (vitamin B-12) 1,000 mcg/mL solution 1,000 mcg IM Q30D trazodone 50 mg tablet 50 - 100 mg PO HS PRN albuterol sulfate 2.5 mg /3 mL (0.083 %) solution for nebulization 2.5 mg inhalation TID PRN multivitamin Tablet 1 tab PO DAILY loratadine 10 mg tablet 10 mg PO DAILY furosemide 20 mg tablet 20 mg PO DAILY lisinopril 2.5 mg tablet 2.5 mg PO DAILY fluticasone propionate 50 mcg/actuation spray,suspension 2 spray intranasal DAILY roflumilast [Daliresp] 500 mcg tablet 500 mcg PO DAILY carvedilol 3.125 mg tablet 3.125 mg PO BID acetaminophen [Tylenol Extra Strength] 500 mg tablet 500 mg PO Q6H PRN Solange-[place] Heartburn-Gas 750-80 mg tablet,chewable 1 tab PO Q2-4H PRN Rx Instructions: do not exceed 6 tabs per 24 hrs ipratropium-albuterol 0.5 mg-3 mg(2.5 mg base)/3 mL solution for nebulization 1 ml inhalation Q6-8H PRN (Reason: shortness of breath) Qty: 180 3RF Trelegy Ellipta 200-62.5-25 mcg blister with device 1 inh INHALATION DAILY pramipexole 0.75 mg tablet 0.75 mg PO HS Label Comments: TAKE 1 TABLET BY MOUTH AT BEDTIME Sindy-Sequels (iron-vit c) 200 mg (65 mg iron)-25 mg tablet extended release 1 tab PO DAILY pramipexole 0.25 mg tablet 0.25 mg PO BID@09,16 rivaroxaban 20 mg tablet 20 mg PO DAILY Qty: 90 3RF Rx Instructions: WITH MEAL Discharge Orders: Discharge Order (Routine); Ordered 09/24/22 Ordered By: Fransisca Elias Patient Education: Prednisone (By mouth), Levofloxacin (By mouth), Varenicline (By mouth), Roflumilast (By mouth), COPD (Chronic Obstructive Pulmonary Disease) (DC) Additional Instructions: Finish the Prednisone taper and antibiotics (both sent to pharmacy), then go back to the Prednisone 5mg daily. See Dr. Michael next week, then see Dr. Yee as scheduled on 10/08. Chantix also sent to pharmacy - you can definitely quit smoking! Activity Level: Activity as Tolerated and No strenuous activity Discharge Diet: Regular Follow Up Appointments: Roseanne Yee MD [Referring] - (See Dr. Yee as scheduled on 10/08) Jazz Michael MD [Primary Care Provider] - 10/01/22 1:30 pm Forms: [employer] Info Instructions
--- NOTE | 2022-09-24 11:26 | PC.NURSE ---
Discharge: Patient pleasant and cooperative. Up independently, ambulated indep. in hallway. 93% RA. VSS and WNL. Denies pain or nausea, SOB. Pt's IV removed intact from right forearm. Discharged to home at 1120 accompanied by neighbor, Pt. verbalized understanding of discharge instructions and signed both discharge and belongings sheet.
== END 2022-09-24 11:20 | disposition home or self-care (01) | DRG 189 ==
LOC: ED 02:12 → MEDSURG 09-23 12:16
PROVIDERS: Family Medicine; Internal Medicine; Admitting Provider Internal Medicine; Emergency Provider Family Medicine; PCP Internal Medicine; Visit Provider Family Medicine
DX: J96.21 Acute and chronic respiratory failure with hypoxia (principal); J44.1 Chronic obstructive pulmonary disease with (acute) exacerbation; E87.1 Hypo-osmolality and hyponatremia; K59.2 Neurogenic bowel, not elsewhere classified; Z68.41 Body mass index [BMI] 40.0-44.9, adult; J96.22 Acute and chronic respiratory failure with hypercapnia; E66.01 Morbid (severe) obesity due to excess calories; G47.33 Obstructive sleep apnea (adult) (pediatric); Z86.718 Personal history of other venous thrombosis and embolism; F41.1 Generalized anxiety disorder; F17.200 Nicotine dependence, unspecified, uncomplicated; R51.9 Headache, unspecified; R00.0 Tachycardia, unspecified; I10 Essential (primary) hypertension; G89.4 Chronic pain syndrome; N31.9 Neuromuscular dysfunction of bladder, unspecified; F17.210 Nicotine dependence, cigarettes, uncomplicated
CPT/HCPCS: 36415; 36600; 71045; 71046; 80048; 80053; 82330; 82803; 83735; 83880; 84145; 84484; 85025; 87502; 87631; 87634; 87635; 93005; 93306; 94640; 94660; 94761; 99284; 99285; A9153; A9270; J2930; J3010; J3475; J7512

== ENCOUNTER 2025-05-15 10:13 | Emergency (ER) | payer OTHER, MEDICAID, SELFPAY ==
--- OUTSIDE RECORDS SUMMARY | 2023-12-09 06:38 | XMS_ITS ---
Author Organization [facility] Address [address] [place] [address] Care Team Providers Care Power Tool Repair Technician Name Role Phone Hailey Villalta Primary Care Provider Unavail able CESAR EVANS Unavailable [phone] REASON FOR VISIT PA Roflumilast 500mg Encounters Encounter Location Date Provider Diagnosis [facility] [address] [place] [address] 12/09/2023 CESAR EVANS PLAN OF TREATMENT No Information
--- OUTSIDE RECORDS SUMMARY | 2024-01-06 08:00 | XMS_ITS ---
Author Organization [facility] Address [address] [place] [address] Care Team Providers Care Data Entry Processor Name Role Phone Hailey Villlata Primary Care Provider Unavail able CESAR EVANS Unavailable [phone] ALLERGIES Allergen (clinical drug ingredient) Drug/Non Drug Allergy documented on EMR Reaction Allergy Type Onset Date Status morphine Morphine hives Drug Allergy Active REASON FOR VISIT 6 month COPD, SOB with exertion MEDICATIONS Medication SIG (Take, Route, Frequency, Duration) Notes Start Date End Date Status Fluticasone Propionate 50 MCG/ACT 1 spray in each nostril Nasally daily for 30 day(s) Active Furosemide 20 MG 1 tablet Orally Once a day for 30 day(s) Active Gabapentin 300 MG 1 capsule Orally Onc e a day for 30 day(s) Active Ipratropium [place] 0.03 % 1-2 sprays in each nostril Nasally Twice a day for 30 day(s) 07/03/2023 Active Lisinopril 2.5 MG 1 tablet Orally Once a day for 30 day(s) Active DULoxetine HCl 60 MG 1 capsule AM, 30mg pm Orally Once a day Active Carvedilol 3.125 MG 1 tablet with food Orally Twice a day for 30 day(s) Active Cyanocobalamin 1000 MCG 1 tablet Orally Once a day for 30 day(s) Active Cyclobenzaprine HCl 5 MG 1 tablet at bed time as needed Orally Once a day for 30 day(s) Active Daliresp 500 mcg 1 tablet Orally calista y for 90 days 04/02/2023 Active Lorazepam 1 tab Oral for 14 days prn Not-Taking busPIRone HCl 10 MG 1 tablet Orally Twic e a day Active Alendronate Sodium 70 MG 1 tablet 30 min utes before the first food, beverage or medicine of the day with plain water Orally for 30 day(s) Active Solange-[place] Antacid Active ARIPiprazole 10 MG 1 tablet Orally Once a day for 30 day(s) Active Albuterol Sulfate HFA 108 (90 Base) MCG/ACT 1 puff as needed Inhalation every 4 hrs prn Active Loratadine 10 MG 1 tablet Orally Once a day for 30 day(s) prn Not-Taking Tylenol 1 tab Oral for 14 days Active Vitron-C 65-125 MG 1 tablet Orally Once a day for 30 day(s) Active Xarelto 20 MG 1 tablet with food Orally Once a day for 30 day(s) Active Rosuvastatin Calcium 5 MG 1 tablet Orall y Once a day for 30 day(s) Active Trelegy Ellipta 200-62.5-25 MCG/ACT 1 puff Inhalation Once a day Active Oxygen 1 2 l/min at night, 1 to 2 l/min with activity nasal cannula as directed 04/02/2023 Active Pantoprazole Sodium 20 MG TAKE 1 TABLET BY MOUTH EVERY DAY for 90 Active Pramipexole Dihydrochloride 0.25 MG 1 tablet Orally Once a day for 30 day(s) Active Multi For Her - as directed Orally Active Oxygen 1 2L nasal cannula as directed Active SOCIAL HISTORY Tobacco Use: Social History Observation Description Date Details (start date - stop date) Former Smoker NA - NA Sex Assigned At : Social History Observation Description Sex Assigned At Unknown Tobacco Use/Smoking Question Answer Notes Are you a former smoker How long has it been since you last smoked? 6-12 months VITAL SIGNS Blood pressure systolic 122 mm Hg 01/06/20 24 Blood pressure diastolic 78 mm Hg 024 Weight-kg 117.94 kg 01/06/2024 Weight 260 lbs 01/06/2024 Height-cm 170.82 cm 01/06/2024 Height 67.25 in 01/06/2024 BMI 40.42 kg/m2 01/06/2024 Oximetry 94 % 01/06/2024 Encounters Encounter Location Date Provider Diagnosis [address] [address] 01/06/2024 CESAR EVANS Centrilobular emphys daniel J43.2 ; Chronic hypoxemic respiratory failure J96.11 ; GERD without esophagitis K21.9 ; Post-nasal drainage R09.82 and History of tobacco abuse Z87.891 ASSESSMENTS Encounter Date Diagnosis Assessment Notes Treatment Notes Treatment Clinical Notes 01/06/2024 Centrilobular emphysema (ICD-10 - J43.2) Chronic Obstructive Pulmonary Disease (COPD): Care Instructions material was printed Stage 2, Group B CAT = The patient is not currently in acute exacerbation. I have personally reviewed all prior PFTs, relevant labs and clinical data. PFTs from March 2023 showed moderate obstructive ventilatory limitation. No response to bronchodilators. Moderate air trapping without hyperinflation. Mild diffusion impairment. Spirometry from September 2022 showed a very severe obstructive ventilatory limitation Smoking cessation counseling: Not a candidate Lung Cancer screening program: Due March 2024 Diagnostic testing: - Alpha-1 Anti-trypsin: 173 MM - KURT: 80 in 03/2023 - ABG: pCO2=41.9 mmHg in 03/2023 Therapeutic regimen: - Trelegy Ellipta 100/62.5/25 mcg 1 puff daily - Daliresp 500 mcg PO daily - Albuterol nebulizer 2.5 mg/3 mL, inhale 3 mL every 4 hours as needed - Albuterol HFA 90 mcg/actuation, inhale 2 puffs every 4 hours as needed - She previously completed pulmonary rehabilitation in 2021 while in [place] - The patient was counseled on the importance of regular exercise and a healthy diet with a goal of improving physical conditioning and overall lung health. 01/06/2024 Chronic hypoxemic respiratory failure (ICD-10 - J96.11) The patient has been examined by me in the office today and has been found to have a diagnosis of chronic respiratory failure. I have counseled the patient on the importance of compliance with oxygen therapy. The patient was found to be compliant with oxygen therapy and continues to receive benefit from its use. - Continue supplemental oxygen at the following dose: 2 L/min at night and 2 L/min with activity as needed 01/06/2024 GERD without esophagitis (ICD-10 - K21.9) I have explained that uncontrolled GERD can exacerbate respiratory disease such as asthma and COPD. I have counseled the patient on diet modification and avoiding foods that trigger GERD. - pantoprazole 20 mg PO daily 01/06/2024 Post-nasal drainage (ICD-10 - R09.82) I counseled the patient on the importance of minimizing and avoiding indoor and airborne allergens to improve control of allergy symptoms. Diagnostic testing: - Respiratory Allergen Testing: negative Therapeutic regimen: - Flonase 1 to 2 sprays each nostril daily - Zyrtec 1 tablet PO daily 01/06/2024 History of tobacco abuse (ICD-10 - Z87.891) She previously smoked up to 1.5 packs per day for 30+ years. She remains a candidate for the lung cancer screening program with due for repeat CT Chest in March 2024 PLAN OF TREATMENT Treatment Notes Assessment Notes Centrilobular emphysema Chronic Obstruct aníbal Pulmonary Disease (COPD): Care Instructions material was printed Next Appt Details Follow Up: 3 Months, Reason: Procedure Notes * Category Sub-Category Detail Notes Overnight Pulse Oximetry On room air OVERNIGHT PULSE OXIMETRY: Interpretation: An overnight pulse oximetry was performed with the patient resting on room air. Total recording time was 12 hours 1 minute 12 seconds with a total valid sampling time of 10 hours 2 minutes 56 seconds.. The highest recorded SPO2 was 99%. The lowest recorded SPO2 was 52%. The mean SPO2 was 89.9%. The patient spent 2 hours 7 minutes 8 seconds with an SPO2 less than 89%. The longest continuous time with an oxygen saturation less than 89% was 28 minutes 32 seconds. There were a total of 39 desaturations overnight. The TIM = 3.9. IMPRESSION: 1. There is significant nocturnal hypoxia overnight 2. Recommend continuing oxygen 2 L/min at night Progress Notes * Examination Category Sub-Category Detail Notes General Examination GENERAL APPEARANCE: normal, alert, in no acute distress HEART: S1, S2 normal, regul ar rate and rhythm, no murmurs LUNGS: clear to auscultatio n bilaterally, no wheezes, rales, rhonchi NEUROLOGIC: alert and oriented, cognitive exam grossly normal EXTREMITIES: no clubbing, cyanosi s, or edema PSYCH: cooperative with exa m
--- OUTSIDE RECORDS SUMMARY | 2024-01-14 03:48 | XMS_ITS ---
Author Organization [facility] Address [address] [place] [address] [address] [place] [address] Care Team Providers Care Mud Analysis Supervisor Name Role Phone Hailey Villalta Primary Care Provider Unavail able CESAR EVANS Unavailable [phone] REASON FOR VISIT Rx Refill Albuterol Sulfate HFA 108 (90 Base) MCG/ACT Aerosol Solution MEDICATIONS Medication SIG (Take, Route, Frequency, Duration) Notes Start Date End Date Status Albuterol Sulfate (2.5 MG/3ML) 0.083% 3 mL as needed Inhalation every 6 hrs for 30 days 01/14/2024 Active Encounters Encounter Location Date Provider Diagnosis [address] [place] [address] 01/14/2024 CESAR EVANS Centrilobular emphys daniel J43.2 ASSESSMENTS Encounter Date Diagnosis Assessment Notes Treatment Notes Treatment Clinical Notes 01/14/2024 Centrilobular emphysema (ICD-10 - J43.2) PLAN OF TREATMENT Medication Medication Name Sig Start Date Stop Date Notes Albuterol Sulfate (2.5 MG/3ML) 0.083% 3 mL as needed Inhalation every 6 hrs for 30 days 01/14/2024
--- OUTSIDE RECORDS SUMMARY | 2025-05-15 10:16 | XMS_ITS | Encounter Summary ---
Author Organization [facility] Address [address] [place] [address] Care Team Providers Care Specialized Language Instructor Name Role Phone Hailey Thurman Primary Care Provider [phone] Reason for Visit * Reason Onset Date Comments Advice 05/04/2025 Encounter Details Date Type Department Care Team ([facility] Contact Info) Description 05/04/2025 Results Follow-Up [facility] [address] [place] [id number] Hailey Thurman FNP [address] [place] [phone] Social History Tobacco Use Types Packs/Day Years Used Date Smoking Tobacco: Former Cigarettes Q uit: 2022 Passive Smoke Exposure: Past Smokeless Tobacco: Never Comments:Quit smoking 5 thien hs ago. Alcohol Use Standard Drinks/Week Comments Not Currently 0 (1 standard drink = 0.6 oz pur e alcohol) Social Connections Answer Date Recorded Connectedness 0 04/30/2024 Financial Resource Strain Answer Date R ecorded Financial Resource Strain 0 2022 Stress Answer Date Recorded Stress 0 04/16/2023 Physical Activity Answer Date Recorded Physical Activity 0 04/16/2023 Food Insecurity Answer Date Recorded Food 0 05/14/2024 Transportation Needs Answer Date Record ed Transportation 0 04/16/2023 Housing Stability Answer Date Recorded Housing 0 04/16/2023 Safety and Environment Answer Date Arley rded Safety 0 04/16/2023 Utilities Answer Date Recorded Utilities 0 04/16/2023 Employment Answer Date Recorded Stress 0 04/30/2024 Comments No Sex and Gender Information Value Date Recorded Sex Assigned at Female 07/02/2023 12:51 PM PST Legal Sex Female 11:14 AM PDT Gender Identity Female 04/12/2023 11:14 AM PDT Sexual Orientation Bisexual 04/12/2023 11 :14 AM PDT documented as of this encounter Nursing Notes * Kat Bernstein - 05/06/2025 10:03 AM CDT Pc made to patient and LM for patient to call back. * Kat Bernstein - 05/05/2025 10:17 AM CDT Pc made to patient and LM for patient to call back. * Kat Bernstein - 05/05/2025 10:16 AM CDT ----- Message from Hailey Thurman sent at 05/04/2025 10:11 AM CDT ----- Patient seen by Ortho 04/2025. Bilateral x-rays completed and I repeat left knee injection done. Would be eligible for right knee injection in May. ----- Message ----- From: Karlos Reyes Sent: 04/30/2025 1:07 PM CDT To: KEMI Hodges documented in this encounter Plan of Treatment Upcoming Encounters Date Type Department Care Team (Late st Contact Info) Description 05/25/2025 10:30 AM CDT BH/MH Visits [facility] [address] [place] [phone] Janelle Allen ARNP [address] [place] [phone] 06/01/2025 2:40 PM CDT Office Visit [facility] [address] [place] [address] Hailey Thurman FNP [address] [place] [phone] documented as of this encounter Goals Goal Patient Goal Type Associated Problems Recent Progress Patient-Stated? Author Exercise 3x per week (30 min per time) Exercise No Arabella Young documented as of this encounter Visit Diagnoses Not on filedocumented in this encounter Additional Health Concerns Assessment Noted Time PHQ-9 Depression Total Score: 2 02/10/20 12:52 PM PDT A Depression follow-up plan has been documented for the patient 03/03/2025 12:30 PM PDT documented as of this encounter Care Teams Specialized Language Instructor Relationship Specialty Start Date End Date Hailey Thurman FNP [address] [facility] [address] [place] [address] PCP - General 04/12/23 documented as of this encounter
--- OUTSIDE RECORDS SUMMARY | 2025-05-15 10:16 | XMS_ITS | Clinical Summary ---
Author Organization [employer] [facility] [employer] Address [address] [place] [address] Care Team Providers Care Rackman Name Role Phone Jazz Michael MD Primary Care Provider [phone] Allergies Active Allergy Reactions Criticality Noted Date Comments Cephalexin Hives 03/26/2017 Lactose *Unknown High 01/27/2018 Morphine Hives 03/26/2017 Medications acetaminophen (TYLENOL EXTRA STRGTH) 500 mg tabletIndications: pain or headache Take 1 tablet by mouth every 4 hours if needed. 06/11/20 17 Active albuterol HFA 90 mcg/actuation inhaler Inhale 2 Puffs by mouth every 4 hours if needed (wheezing or shortness of breath). 04/17/20 17 Active calcium with vitamin D3 (OS-SAMANTHA 500 + D) tabletIndications: prevention of vitamin D deficiency Take 1 tablet by mouth once daily with a meal. Active clindamycin 1% (CLEOCIN-T) 1 % gel Apply topically to affected area(s) at bedtime if needed. 06/18/20 17 Active ferrous gluconate 324 mg (37.5 mg iron) tab tablet Take 324 mg by mouth once daily. Active furosemide (LASIX) 20 mg tablet Take 1 tablet by mouth every morning. Fluid retention 04/18/20 17 Active albuterol-ipratrop ium (DUONEB) (2.5-0.5 mg) in 3 mL NEBULIZATION solution Inhale 3 mL by mouth 4 times daily if needed (wheezing or shortness of breath). 04/05/20 17 Active multivitamin capsuleIndications :vitamin deficiency prevention Take 1 capsule by mouth once daily. Active cyclobenzaprine (FLEXERIL) 5 mg tablet Take 5 mg by mouth at bedtime if needed. 06/15/20 18 Active DULoxetine (CYMBALTA) 60 mg Delayed-release capsule Take 60 mg by mouth 2 times daily. 06/15/20 Active cyanocobalamin (VITAMIN B12) 1,000 mcg/mL injection Inject 1,000 mcg subcutaneous every 4 weeks. 06/15/20 18 Active albuterol-ipratrop ium (DUONEB) (2.5-0.5 mg) in 3 mL NEBULIZATION solutionIndication s:Acute exacerbation of chronic obstructive pulmonary disease (COPD) (HC) Inhale 3 mL via a nebulizer 3 times daily. 1 box 08/09/20 Active ARIPiprazole (ABILIFY) 10 mg tablet Take 5 mg by mouth 2 times daily. 08/24/19 Active gabapentin (NEURONTIN) 300 mg capsule Take 1,200 mg by mouth 3 times daily. 10/19/19 21 Active Xarelto 20 mg tablet Take 20 mg by mouth once daily with evening meal. 09/30/19 21 Active oxygen-air delivery systems (HOME OXYGEN)Indications :Chronic obstructive pulmonary disease with acute exacerbation (HC) Oxygen for home use. Liters per minute: 2 per nasal cannula. Frequency of use: Continuous with portability.;. Length of need: 1 Months. 1 Device 11/05/19 Active Trelegy Ellipta 100-62.5-25 mcg inhaler once daily. 07/31/20 21 Active loratadine (CLARITIN) 10 mg tablet Take 1 Tablet (10 mg) by mouth once daily. 0 12/07/19 22 Active fluticasone (50 mcg per actuation) nasal solution (FLONASE) Inhale 1 [place] into affected nostril(s) once daily. 16 g 12/07/19 22 Active pramipexole (MIRAPEX) 0.25 mg tablet 05/03/20 Active pramipexole (MIRAPEX) 0.75 mg tablet Take 0.75 mg by mouth at bedtime. 02/14/20 22 Active varenicline (CHANTIX) 1 mg tablet Take 1 mg by mouth two times daily. 04/17/20 22 Active Daliresp 250 mcg tablet 04/25/20 22 Active rosuvastatin (CRESTOR) 5 mg tabletIndications: ASCVD (arteriosclerotic cardiovascular disease),NSTEMI (non-ST elevated myocardial infarction) (HC),Chronic systolic heart failure (HC),Cardiomyopath y, unspecified type (HC) Take 1 Tablet (5 mg) by mouth once daily. 90 Tablet 3 12/18/19 23 Active carvediloL (COREG) 3.125 mg tabletIndications: ASCVD (arteriosclerotic cardiovascular disease),NSTEMI (non-ST elevated myocardial infarction) (HC),Chronic systolic heart failure (HC),Cardiomyopath y, unspecified type (HC) Take 1 Tablet (3.125 mg) by mouth two times daily with meals. 180 Tablet 3 12/19/19 23 Active lisinopriL (PRINIVIL; ZESTRIL) 5 mg tabletIndications: ASCVD (arteriosclerotic cardiovascular disease),NSTEMI (non-ST elevated myocardial infarction) (HC),Chronic systolic heart failure (HC),Cardiomyopath y, unspecified type (HC) TAKE 1 TABLET(5 MG) BY MOUTH EVERY DAY 90 Tablet 3 02/12/20 23 Active Active Problems Problem Noted Date Diagnosed Date NSTEMI (non-ST elevated myocardial infarction) 0 11/03/2020 Systolic heart failure 11/03/2020 DVT (deep venous thrombosis) 11/03/2020 COPD (chronic obstructive pulmonary disease) History of Joaquin-en-Y gastric bypass 08/06/2018 Tobacco abuse disorder 08/06/2018 Major depressive disorder 08/06/2018 Neurogenic bladder 08/06/2018 Chronic hepatitis C virus infection 08/06/2018 Peripheral neuropathy 08/06/2018 Restless leg syndrome 08/06/2018 Chronic low back pain 08/06/2018 Resolved Problems Problem Noted Date Diagnosed Date Resolved Date Chronic obstructive pulmonar y disease with acute exacerbation 08/06/2018 11/03/2020 Immunizations Immunization Administration Dates Next Due Influenza, IIV3 (Age >=3 years) 07/23/2018 Social History Tobacco Use Types Packs/Day Years Used Date Smoking Tobacco: Every Day Smokeless Tobacco: Never Tobacco Cessation:Ready to Q uit: Yes; Counseling Given: Yes Comments:patient is down to 1 cigarette daily 05/09/22 Alcohol Use Standard Drinks/Week Comments No 0 (1 standard drink = 0.6 oz pur e alcohol) PHQ-2 Answer Date Recorded PHQ-2 TOTAL SCORE 1 06/12/2022 Social Connections Answer Date Recorded Frequency of Communication with Friends and Fami ly Not on file 08/19/2021 Financial Resource Strain Answer Date R ecorded Difficulty of Paying Living Expenses Not on file 08/19/2021 Difficulty of Paying Living Expenses Not on file 08/19/2021 Comments No Sex and Gender Information Value Date Recorded Sex Assigned at Not on file Legal Sex Female 12:29 PM CDT Gender Identity Not on file Sexual Orientation Not on file Obstetrics History Last Filed Vital Signs Vital Sign Reading Time Taken Comments Blood Pressure 136/81 12/13/2022 2:07 PM CDT Pulse 92 12/13/2022 2:07 PM CDT Temperature 36.6 C (97.9 F) 05/09/2022 10:50 AM CDT Respiratory Rate 20 03/01/2022 2:00 PM CDT Oxygen Saturation 96% 12/13/2022 2:07 PM CDT Inhaled Oxygen Concentration - - Weight 118.4 kg (261 lb) 12/13/2022 2:07 PM CDT Height 170.2 cm (5' 7) 03/01/2022 2:00 PM CDT Body Mass Index 40.88 03/01/2022 2:00 PM CDT Plan of Treatment Health Maintenance Due Date Last Done Comments Tetanus booster 1978 HIV for age 15-65 1982 Hepatitis C screening for ag e 18-79 1985 Hepatitis B series for 19+ ( 1 of 3 - 19+ 3-dose series) 1986 Pneumococcal series for age 50+ (1 of 2 - PCV) 1986 Mammogram for age 45-75 2012 Zoster (shingles) series for age 50+ (1 of 2) 2017 BMI (ht and wt on same day) for age 18+ 03/26/2018 03/26/2017 Depression screening for age 12+ 06/08/2023 06/08/2022, 03/01/2022, 01/13/2019, Additional history exists COVID-19 vaccine series ( season) 2025 11/10/2022, 07/11/2021, 11/26/2020, Additional history exists Influenza Vaccine (#1) 2025 07/23/2018 Lipids for age 45-75 11/03/2025 11/03/2020 Pap test for age 21-65 01/02/2026 01/02/2023, 2022 Colonoscopy through age 75 11/23/2027 11/22/2017 RSV vaccine for adults or (1 - 1-dose 75+ series) 2042 Procedures Procedure Name Priority Date/Time Associated Diagnosis Comments SCREEN EXAMINER THIN PREP PAP SCREEN IMAGED Routine 01/02/2023 9:00 AM CDT LIPID PANEL Early AM 11/03/2020 6:08 AM CDT COLONOSCOPY 11/22/2017 11:09 AM CDT from Last 3 Months or Most Recently Relevant to Health Maintenance Results * SCREEN EXAMINER THIN PREP PAP SCREEN IMAGED (01/02/2023 9:00 AM CDT) Case Report Gynecologic Cytology Report Case: [id number] Authorizing Provider: Corazon Kim NP Collected: 01/02/2023 0900 Ordering Location: [facility] Received: 01/02/2023 1804 First Screen: Haylie Lugo Specimen: SCREEN EXAMINER ThinPrep Vial Screening, Cervical 02/05/2023 2:51 PM CDT [facility] INTERPRETATION/ RESULT NEGATIVE FOR INTRAEPITHELIAL LESION OR MALIGNANCY (NIL) (none) 02/05/2023 2:51 PM CDT [facility] at 1451 CDT SPECIMEN ADEQUACY Satisfactory for evaluation Endocervical component present 02/05/2023 2:51 PM CDT [facility] HPV REQUEST HPV and PAP 02/05/2023 2:51 PM CDT [facility] Date of LMP 02/05/2023 2:[address] [facility] Comment:unknown Last Pap Date 09/23/2017 02/05/2023 2:51 PM CDT [facility] Last Pap Result NIL 2:[address] [facility] Abnormal Pap or [place] Bx in last 5 years No 02/05/2023 2:[address] [facility] [place] Bx Done Today No 02/05/2023 2:[address] [facility] Additional Information 02/05/2023 2:51 PM CDT [facility] Comment: Interpreted at [facility] - [address], [place] [address] Automated Review Successful 02/05/2023 2:[address] [facility] Comment:Specimen processed s uccessfully by automated bi application developer device, ThinPrep Imaging System, [employer] ANCILLARY TESTING SCREEN EXAMINER HPV Ordered, Please see separate report 02/05/2023 2:[address] [facility] Note The pap test is a screening technique, not a diagnostic procedure. It is used primarily to screen for squamous cancers and precursor lesions. Published studies have shown that it is subject to both false negative and false positive results. The pap test should not be used as the sole means to diagnose or exclude pre-malignant and malignant lesions. 02/05/2023 2:[address] [facility] Other (Cervical) 01/02/2023 9:00 AM CDT 01/02/2023 6:04 PM CDT us Corazon Kim NP PATHOLOGY/CYTOLOGY Final Result [facility] [address] [place] [address], [place] * Lipid Panel AM (11/03/2020 6:08 AM CDT) CHOLESTEROL,TOTAL 173 100 - 199 mg/dL 11/03/2020 7:03 AM CDT [facility] TRIGLYCERIDES 46 <150 mg/dL 11/03/2020 7:03 AM CDT [facility] HDL CHOLESTEROL 75 >40 mg/dL 7:03 AM CDT [facility] NON-HDL CHOLESTEROL 98 <145 mg/dl 11/03/2020 7:03 AM CDT [facility] CHOL/HDL RATIO 2.31 <4.50 11/03/2020 7:03 AM CDT [facility] LDL CHOLESTEROL 89 <=130 mg/dL 11/03/2020 7:03 AM CDT [facility] PROVIDER ORDERED STATUS RANDOM 11/03/2020 7:03 AM CDT [facility] Blood BLOOD SPECIMEN / Unknown Venipuncture / Unknown 11/03/2020 6:08 AM CDT 11/03/2020 6:17 AM CDT Robert Cronin MD CHEMISTRY Loren l Result [facility] [address] [place] [address], [place] * COLONOSCOPY (11/22/2017 11:09 AM CDT) 11/22/2017 11:0 9 AM CDT Narrative Transcriptions Ismael Gutierrez MD - 11/22/2017 12:20 PM CDT Patient Name: Sarah Jay Procedure Date: 11/22/2017 Gender: Female Date of : 1965 Admit Type: Ambulatory Procedure: Colonoscopy Proceduralist: Ismael Gutierrez [facility] Indications/Pre-Op Diagnosis: Screening for colorectal malignantneoplasm Medications: Propofol per Anesthesia Procedure Description: The procedure, indications, potential complications, (bleeding, perforation, infection, adverse medication reaction, missed lesionsor polyps) and alternatives available were explained to the patient, who appeared to understand and indicated this. Opportunity for questionswas provided and informed consent obtained. The colonoscope was passed through the anus and advanced to 7 cm into the ileum. The colonoscopy was somewhat difficult due to significant looping. Successful completion of the procedure was aided by applying abdominal pressure. The patient tolerated the procedure well. The quality of the bowel preparation was adequate. Complications: No immediate complications. Estimated blood loss: Minimal. Estimated Blood Loss & Specimen: Specimen collected: Yes and sent to Laboratory Findings: The terminal ileum contained a single (solitary) three mm ulcer. No bleeding was present. No stigmata of recent bleeding were seen. Two sessile polyps were found in the rectum. The polyps were 1 to 2mm in size. These polyps were removed with a cold snare. Resection and retrieval were complete. Non-bleeding external and internal hemorrhoids were found during retroflexion and during perianal exam. The hemorrhoids weremedium-sized and Grade II (internal hemorrhoids that prolapse but reduce spontaneously). Impressions/Post-Op Diagnosis: - A single (solitary) ulcer in the terminal ileum. - Two 1 to 2 mm polyps in the rectum, removed with a cold snare. Resected and retrieved. - Non-bleeding external and internal hemorrhoids. - The ileal ulcer may explain the black stools. Recommendation: - Repeat colonoscopy in 5-10 years for surveillance. - Return to primary care physician in 1 week ti discuss iron and any further workup. Moderate Sedation: All monitoring and sedation per anesthesia. Ismael Gutierrez, 11/22/2017 12:20:45 PM This report has been signed electronically. Note Initiated On: 11/22/2017 11:09 AM Procedure Code(s): --- Professional --- 55341, Colonoscopy, flexible; with removal of tumor(s), polyp(s), or other lesion(s) by snare technique Diagnosis Code(s): --- Professional --- Z12.11, Encounter for screening for malignant neoplasm of colon K63.3, Ulcer of intestine K62.1, Rectal polyp K64.1, Second degree hemorrhoids CPT copyright 2017 [employer]. All rights reserved. The codes documented in this report are preliminary and upon invoice coder reviewmay be revised to meet current compliance requirements. Ismael Gutierrez MD PROCEDURE ORD Final Resu lt from Last 3 Months or Most Recently Relevant to Health Maintenance Insurance MEDICARE PART A HB ONLY [facility] [employer] Advance Directives * Full Code (Latest Code Status on File) Date Activated Date Inactivated Comments 11/03/2020 2:17 PM 11/04/2020 4:16 PM Question Answer Comments Code Status Discussion: Discussed * Full Code Date Activated Date Inactivated Comments 11/03/2020 3:01 AM 11/03/2020 2:08 PM Question Answer Comments Code Status Discussion: Discussed * Full Code Date Activated Date Inactivated Comments 08/06/2018 9:04 PM 08/09/2018 3:39 PM Question Answer Comments Code Status Discussion: Not Discussed * Full Code Date Activated Date Inactivated Comments 11/22/2017 11:05 AM 11/22/2017 4:08 PM Care Teams Rackman Relationship Specialty Start Date End Date Jazz Michael MD [address] [place] [id number] PCP - General Internal Medicine 05/26/20
--- OUTSIDE RECORDS SUMMARY | 2025-05-15 10:16 | XMS_ITS | Patient Health Record ---
Author Organization [facility] Address [address] [facility] [address] [place] [address] Care Team Providers Care Skiver Welt End Name Role Phone Hailey Villalta Primary Care Provider Unavail able ALLERGIES Allergen (clinical drug ingredient) Drug/Non Drug Allergy documented on EMR Reaction Allergy Type Onset Date Status morphine Morphine hives Drug Allergy Active REASON FOR REFERRAL No Information MEDICATIONS Medication SIG (Take, Route, Frequency, Duration) Notes Start Date End Date Status DULoxetine HCl 60 MG 1 capsule AM, 30mg pm Orally Once a day Active Fluticasone Propionate 50 MCG/ACT 1 spray in each nostril Nasally daily for 30 day(s) Active Furosemide 20 MG 1 tablet Orally Once a day for 30 day(s) Active Vitron-C 65-125 MG 1 tablet Orally Once a day for 30 day(s) Active Alendronate Sodium 70 MG 1 tablet 30 min utes before the first food, beverage or medicine of the day with plain water Orally for 30 day(s) Active Xarelto 20 MG 1 tablet with food Orally Once a day for 30 day(s) Active [place] Antacid Active ARIPiprazole 10 MG 1 tablet Orally Once a day for 30 day(s) Active Albuterol Sulfate (2.5 MG/3ML) 0.083% 3 mL as needed Inhalation every 6 hrs for 30 days 01/14/2024 Active Carvedilol 3.125 MG 1 tablet with food Orally Twice a day for 30 day(s) Active Cyanocobalamin 1000 MCG 1 tablet Orally Once a day for 30 day(s) Active Cyclobenzaprine HCl 5 MG 1 tablet at bed time as needed Orally Once a day for 30 day(s) Active Daliresp 500 mcg 1 tablet Orally calista y for 90 days 04/02/2023 Active Tylenol 1 tab Oral for 14 days Active Albuterol Sulfate HFA 108 (90 Base) MCG/ACT 1 puff as needed Inhalation every 4 hrs prn Active Rosuvastatin Calcium 5 MG 1 tablet Orall y Once a day for 30 day(s) Active Loratadine 10 MG 1 tablet Orally Once a day for 30 day(s) prn Not-Taking Trelegy Ellipta 200-62.5-25 MCG/ACT 1 puff Inhalation Once a day Active Lorazepam 1 tab Oral for 14 days prn Not-Taking busPIRone HCl 10 MG 1 tablet Orally Twic e a day Active Gabapentin 300 MG 1 capsule Orally Onc e a day for 30 day(s) Active Ipratropium [place] 0.03 % 1-2 sprays in each nostril Nasally Twice a day for 30 day(s) 07/03/2023 Active Lisinopril 2.5 MG 1 tablet Orally Once a day for 30 day(s) Active Multi For Her - as directed Orally Active Oxygen 1 2L nasal cannula as directed Active Oxygen 1 2 l/min at night, 1 to 2 l/min with activity nasal cannula as directed 04/02/2023 Active Pantoprazole Sodium 20 MG TAKE 1 TABLET BY MOUTH EVERY DAY for 90 Active Pramipexole Dihydrochloride 0.25 MG 1 tablet Orally Once a day for 30 day(s) Active SOCIAL HISTORY Tobacco Use: Social History Observation Description Date Details (start date - stop date) Former Smoker NA - NA Sex Assigned At : Social History Observation Description Sex Assigned At Unknown Tobacco Use/Smoking Question Answer Notes Are you a former smoker How long has it been since you last smoked? 6-12 months PROBLEMS Problem Type ICD Code Onset Dates Problem Status W/U Status Risk SNOMED Code Notes Problem COPD exacerbation (J44.1) Active confirmed 184888209 Problem History of tobacco abuse (Z87.891) Active confirmed 305360435 Problem GERD without esophagitis (K21.9) Active confirmed 541032000 Problem Centrilobular emphysema (J43.2) Active confirmed 48400068 Problem Cigarette nicotine dependence without complication (F17.210) Active confirmed 56004193 Problem Post-nasal drainage (R09.82) Active confirmed 43957274 Problem Chronic hypoxemic respiratory failure (J96.11) Active confirmed 119812242 Problem Chronic obstructive pulmonary disease, unspecified COPD type (J44.9) Active confirmed 12858648 PLAN OF TREATMENT Future Test Test Name Order Date PULMONARY FUNCTION TEST 04/02/2023 Insurance Providers Payer Name Payer Address Payer Phone Subscriber Number Group Number Insured Name Patient Relationship to Insured Coverage Start Date Coverage End Date [employer] [address] [address] [place] [address] [id number] Sarah Jay Self - patient is the insured 4 [facility] [address] [address] [place] [address] [id number] Sarah Jay Self - patient is the insured 3 MEDICARE PART B [address] [place] [address] [id number] Sarah Jay Self - patient is the insured 3 [facility] [address] [place] [address] [id number] Sarah Jay Self - patient is the insured 2 3 MEDICAL (GENERAL) HISTORY Medical History History ICD Code L biopsy of lung COPD Surgical History Surgery Date(Month/Year)
--- OUTSIDE RECORDS SUMMARY | 2025-05-15 10:16 | XMS_ITS | Encounter Summary ---
Author Organization [facility] Address [address] [place] [address] Care Team Providers Care Loop Tacker Name Role Phone Hailey Thurman APRON OPERATOR Primary Care Provider [phone] Encounter Details Date Type Department Care Team ([facility] st Contact Info) Description 04/29/2025 Interim Notes Andressa [facility] [address] [place] [phone] Jamie Hollis [address] [place] [phone] Social History Tobacco Use Types Packs/Day Years [...] AM PDT documented as of this encounter Progress Notes * Jamie Hollis - 04/29/2025 10:38 AM CDT PRE-CHARTING TEMPLATE Patient Information Patient Name: Sarah Jay Patient : 1965 Patient Age: [age] year old Insurance Information: Primary Coverage Payor: [employer] Plan: [employer] Member Number: [id number] Appointment Date: 05/04/2025 with KEMI Hodges Chart Review Checklist Last PCP Visit: 03/02/2025 Last PE: 04/28/2024 ER Visits: 11/26/2024 Visit Action/UDS Checklist Test Last Completed Hgb A1C Lab Results Component Value Date HGBA1C 5.6 11/03/2020 Urine Mirco alb/creat and serum creat\EGFR Lab Results Component Value Date CREATININE 0.53 (L) 04/28/2024 EGFR 108 04/28/2024 Eye Exam Foot Exam Lipids Lab Results Component Value Date TRIGLYC 75 04/28/2024 CHOL 173 04/28/2024 HDL 75 04/28/2024 LDL 84 04/28/2024 VLDL 14 04/28/2024 CMP Lab Results Component Value Date GLUCOSE 114 (H) 04/28/2024 BUN 10 04/28/2024 CREATININE 0.53 (L) 04/28/2024 EGFR 108 04/28/2024 BUNCREAT 19 04/28/2024 NA 135 05/19/2024 K 4.7 04/28/2024 CHLORIDE 91 (L) 04/28/2024 CO2 21 04/28/2024 CALCIUM 8.7 04/28/2024 PROTEIN 6.3 04/28/2024 ALBUMIN 4.3 04/28/2024 GLOBULIN 2.0 04/28/2024 BILIRUBIN 0.3 04/28/2024 ALKPHOS 94 04/28/2024 AST 20 04/28/2024 ALT 17 04/28/2024 BMP No results found for: BMP PSA No results found for: PSA TSH No results found for: TSH Depression/Anxiety Depression Monitoring Information: Reviewed: 02/09/2025 Last MUUDS Documentation: /04/2025 PHQ-9 Total Score (Auto Calculated) 2 at 02/09/2025 12:52 PM Hep C Lab Results Component Value Date HCVDNA HCV Not Detected 02/09/2025 HIV No results found for: [id number], [id number] LDCT Mammogram Last mammogram date: 05/11/2024 Colonsocopy/ifob/Cologuard Last colonoscopy date: Not Found Pap 01/02/2023 Bone Density Last Three Reported Vitals Last 3 Vitals Flowsheet Row Office Visit from 03/02/2025 in [facility] Most recent reading at 03/02/2025 11:17 AM / Visits from 03/02/2025 in [facility] Most recent reading at 03/02/2025 10:30 AM Office Visit from 02/09/2025 in [facility] Most recent reading at 02/09/2025 12:28 PM Temp 98.3 ??F (36.8 ??C) -- 98.5 ??F (36.9 ??C) Pulse 66 67 83 BP 116/76 120/65 109/72 Resp 18 20 18 Weight 283 lb (128.4 kg) 281 lb (127.5 kg) 281 lb 6.4 oz (127.6 kg) Health Maintenance Topics Due Health Maintenance Due Topic Date Due Diabetes Foot Exam Never done Urine Albumin Creatinine Ratio Screening Never done Retinopathy Screening Never done Medicare Annual Wellness Visit Never done Dental Examination 08/03/2024 Imm-Influenza (1) 04/19/2025 Lipid Screening 04/28/2025 Serum Creatinine 04/28/2025 Hemoglobin A1c 05/04/2025 Breast Cancer Screening (Mammogram) 05/07/2025 Vaccines Immunization History Administered Date(s) Administered DTAP (Infanrix) 01/07/2006 Flu, Cell Culture based, Preservative Free, 6m+, Flucelvax 05/09/2023 Flu, Preservative Free 07/17/2018 HEP B, PED/ADOL ([id number]/RECOMBIVAX-PEDS) 10/17/1999 Hep B, Adult/Adol ([id number]/RECOMBIVAX-ADULT) 04/05/1999, 05/18/1999, 04/28/2024 Hep B, Unspecified 04/05/1999, 05/18/1999, 10/17/1999 INFLUENZA, SEASONAL, INJECTABLE 05/27/1998, 07/31/2002, 07/23/2018 INFLUENZA, SEASONAL, INJECTABLE, PRESERVATIVE FREE 06/16/2024 INFLUENZA, UNSPECIFIED 04/18/2017 Moderna COVID-19 (Spikevax), Mrna, Lnp-s, Pf, 50 Mcg/0.5 Ml, 12yr+ 06/17/2024 PNEUMOCOCCAL CONJUGATE PCV 20 (Prevnar 20) 06/16/2024 PNEUMOCOCCAL POLYSACCHARIDE PPV23 (Pneumovax 23) 05/27/1998 Pfizer COVID-19 (Comirnaty), Mrna, Lnp-s, Pf, Sharif-sucrose, 30 Mcg/0.3 Ml, 12yr+ 05/09/2023 TDAP 01/07/2006, 12/23/2006, 02/12/2017, 12/31/2023 ZOSTER VACCINE, RECOMBINANT (SHINGRIX) 11/28/2017, 03/11/2018 documented in this encounter Plan of Treatment Upcoming Encounters Date Type Department Care Team (Late st Contact Info) Description 05/25/2025 10:30 AM CDT /MH Visits [facility] [address] [phone] Janelle Allen ARNP [address] [phone] 06/01/2025 2:40 PM CDT Office Visit [facility] [address] [phone] Hailey Thurman FNP [address] [phone] documented as of this encounter Goals Goal Patient Goal Type Associated Problems Recent Progress Patient-Stated? Author Exercise 3x per week (30 min per time) Exercise No Young, Arabella documented as of this encounter Visit Diagnoses Not on filedocumented in this encounter Additional Health Concerns Assessment Noted Time PHQ-9 Depression Total Score: 2 02/10/20 12:52 PM PDT A Depression follow-up plan has been documented for the patient 03/03/2025 12:30 PM PDT documented as of this encounter Care Teams Loop Tacker Relationship Specialty Start Date End Date Hailey Thurman FNP [address] [facility] [address] [place] [phone] PCP - General 04/12/23 documented as of this encounter
--- OUTSIDE RECORDS SUMMARY | 2025-05-15 10:17 | XMS_ITS | Clinical Summary ---
Author Organization [facility] Address [address] [place] [address] Care Team Providers Care Senior Report Developer Name Role Phone Hailey Thurman KEMI Primary Care Provider [phone] Source Comments PLEASE NOTE, if this patient is a minor, it may be UNLAWFUL to discuss sensitive information that is contained in these records (such as FAMILY PLANNING, MENTAL HEALTH or SUBSTANCE ABUSE) with the minor patient's parent or other person without the patient's specific authorization.[facility] Allergies Active Allergy Reactions Criticality Noted Date Comments Cephalexin Hives High 03/26/2017 Lactose High 01/27/2018 Other Reaction(s): *Unknown, Unknown Other Reaction(s): *Unknown Morphine Hives High 03/26/2017 Medications multivitamin tablet Take 1 Tablet by mouth daily. Active acetaminophen (TYLENOL EXTRA STRENGTH) 500 mg tablet Take 2 Tablets by mouth every 6 hours as needed Active walker Please dispense one rolling walker with a seat as allowed by insurance. Dx: J44.9 COPD 1 Each 023 Active OXYGEN-AIR DELIVERY SYSTEMS MISC Place 2 L into the nostril(s) nightly at bedtime as needed 2 L O2 via NC with activity and at bedtime Active albuterol (PROVENTIL) 2.5 mg /3 mL (0.083 %) nebulizer solution Take 2.5 mg by nebulization every 6 (six) hours as needed for wheezing or shortness of breath Active blood-glucose meter (TRUE METRIX GLUCOSE METER) monitoring kit as needed for blood glucose monitoring 1 Each 023 Active blood sugar diagnostic (TRUE METRIX GLUCOSE TEST STRIP) strips 1 Each 4 (four) times daily 200 Each 2 023 Active calcium carbonate-vitamin D3 500 mg-5 mcg (200 unit) per tablet Take 1 Tablet by mouth once daily Active ferrous gluconate 324 mg (37.5 mg iron) tab Take 324 mg by mouth once daily Active xawcgrlhixfh-Xv-y irving-minerals 18-0.4 mg tab Take by mouth Ac tive lisinopriL 2.5 mg tabletIndications :Essential hypertension Take 1 Tablet by mouth once daily 90 Tablet 3 024 Active rosuvastatin (CRESTOR) 5 mg tabletIndications :Hyperlipidemia, unspecified hyperlipidemia type Take 1 Tablet by mouth daily. 90 Tablet 3 024 Active ipratropium (ATROVENT) 21 mcg (0.03 %) nasal spray 2 spray(s), Nasal, TID, # 1 EA, 11 Refill(s), Pharmacy: [facility], 2 spray(s) Nasal TID,x30 day(s), 172, cm, 01/27/24 10:26:00 CDT, Height, 129.1, kg, 10/20/24 11:29:00 VISUAL ASSOCIATE, Weight Dosing 2025 Active cyclobenzaprine (FLEXERIL) 5 mg tablet TAKE 1 TABLET BY MOUTH NIGHTLY AT BEDTIME NEEDED FOR MUSCLE SPASMS. SHOULD BE USED SPARINGLY, NOT ON A NIGHTLY BASIS. 30 Tablet 1 025 Active furosemide (LASIX) 20 mg tablet Take 1 tablet by mouth once daily 120 Tablet 90 025 Active fluticasone (FLONASE) 50 mcg/actuation nasal spray Place 1 [place] in both nostrils once daily. 16 g 11 025 Active alendronate (FOSAMAX) 70 mg tablet TAKE 1 TABLET BY MOUTH EVERY SATURDAY 12 Tablet 025 Active gabapentin (NEURONTIN) 300 mg capsule TAKE 4 CAPSULES BY MOUTH THREE TIMES DAILY 360 Capsule 2 025 Active brexpiprazole 2 mg tabIndications:Cu rrent mild episode of major depressive disorder, unspecified whether recurrent (CMS-HCC V24),Unspecified anxiety disorder Take 1 tablet by mouth once daily. 30 Tablet 2 025 Active busPIRone (BUSPAR) 15 mg tabletIndications :Unspecified anxiety disorder Take 2 Tablets by mouth 2 (two) times daily. 120 Tablet 2 Active vortioxetine (TRINTELLIX) 20 mg tabIndications:Cu rrent mild episode of major depressive disorder, unspecified whether recurrent ([facility]) Take 1 Tablet by mouth once daily. 30 Tablet 2 Active TRELEGY ELLIPTA 200-62.5-25 mcg dsdv Inhale 1 Puff into the lungs. Active XARELTO 20 mg tab Take 1 tablet by mouth once daily 90 Tablet 025 Active roflumilast (DALIRESP) 500 mcg tab Take 1 tablet by mouth once daily 90 Tablet 025 Active loratadine (CLARITIN) 10 mg tabletIndications :Chronic obstructive pulmonary disease, unspecified COPD type ([facility]) Take 1 tablet by mouth once daily 90 Tablet 025 Active pantoprazole (PROTONIX) 20 mg EC tablet TAKE 1 TABLET BY MOUTH ONCE DAILY IN THE MORNING BEFORE BREAKFAST 30 Tablet 025 Active ipratropium-albut Jacob (DUONEB) 0.5 mg-3 mg(2.5 mg base)/3 mL nebulizer solution INHALE 1 VIAL IN NEBULIZER EVERY 6 HOURS NEEDED WHEEZING 90 mL Active albuterol HFA 90 mcg/actuation inhaler INHALE 2 PUFFS INTO LUNGS EVERY 4 HOURS NEEDED FOR SHORTNESS OF BREATH FOR WHEEZING 18 g 025 Active carvediloL (COREG) 3.125 mg tablet Take 1 tablet by mouth twice daily 60 Tablet 025 Active pramipexole (MIRAPEX) 0.25 mg tablet Take 1 tablet by mouth twice daily 180 Tablet 025 Active ipratropium-albut Jacob (DUONEB) 0.5 mg-3 mg(2.5 mg base)/3 mL nebulizer solution Take 3 mL by nebulization every 6 (six) hours as needed for wheezing 90 mL 025 2024 Discontinued pantoprazole (PROTONIX) 20 mg EC tablet TAKE 1 TABLET BY MOUTH ONCE DAILY IN THE MORNING BEFORE BREAKFAST 90 Tablet 025 2024 Discontinued carvediloL (COREG) 3.125 mg tablet Take 1 tablet by mouth twice daily 180 Tablet 025 2024 Discontinued pramipexole (MIRAPEX) 0.25 mg tablet Take 1 tablet by mouth twice daily 180 Tablet 025 2024 Discontinued albuterol HFA 90 mcg/actuation inhaler INHALE 2 PUFFS BY MOUTH EVERY 4 HOURS NEEDED FOR SHORTNESS OF BREATH FOR WHEEZING 18 g 025 2024 Discontinued Active Problems Problem Noted Date Diagnosed Date History of hepatitis C 02/10/2025 Assessment & Plan (02/10/2025 9:13 PM CDT): Previously treated when she lived in [place]. Will do repeat testing today to verify successful treatment. Will call patient with results and print copy of results which she can clam picker at her convenience. Patient appreciative. Screening mammogram for breast cancer 04/28/2024 Assessment & Plan (04/30/2024 8:33 AM CDT): Physical exam completed today. Provided general healthy lifestyle counseling, including importance of routine vision and dental screenings. Encourage meaningful exercise at least 5 days per week. Routine screening labs pending. Vaccinations updated today. PCV not in stock today - patient can return for nurse only visit. Referral for mammogram sent. CRC and PAP UTD. Follow up for physical in 1 year, sooner as needed for any chronic, preventative, or acute services. Unspecified anxiety disorder 01/30/2024 Class 3 severe obesity due t o excess calories with serious comorbidity and body mass index (BMI) of 40.0 to 44.9 in adult ([facility]) 01/06/2024 Assessment & Plan (01/06/2024 12:24 PM CDT): Positive reinforcement provided today regarding patient's healthy lifestyle modifications. When it comes to long-term weight loss, starting with small habit changes is often more successful than trying to dramatically change entire life. I do recommend counting calories over the next several weeks and suggested utilizing a free feli such as [employer]. Starting to incorporate more regular exercise would be beneficial. Wellness center referral placed today. May also talk with Arabella regarding any nutritional/exercise recommendations. Written weight loss instructions provided today. Patient appreciative. Right shoulder pain 09/25/2023 Assessment & Plan (11/03/2024 11:20 AM CDT): If pain worsens or changes in character, follow up as needed. Can try some easy stretching to assist with discomfort. Can continue with using Salonpas patches. Sinus congestion 09/23/2023 Assessment & Plan (09/23/2023 8:08 AM VISUAL ASSOCIATE): Patient does not talk about this much today but mention she did finish the Augmentin and has only noticed a little improvement. It seems like symptoms are slowly starting to relent. We discussed that infection is likely viral versus bacterial. She is using nebulizers, Trelegy, and Flonase as directed. Continue with supportive treatments: Hot steamy showers, warm compresses, nasal rinses, humidifier, and warm liquids for any PND or sore throat. Call or RTC if symptoms are suddenly worsening or persisting. Urinary symptom or sign 09/10/2023 Assessment & Plan (09/10/2023 1:42 PM VISUAL ASSOCIATE): UA was negative for urinary tract infection, send for culture. Will call patient once results are in. Chronic right shoulder pain 08/06/2023 Assessment & Plan (09/25/2023 5:10 PM VISUAL ASSOCIATE): HOA Oswald was able to locate x-ray results which showed mild degenerative changes of the glenohumeral joint and moderate degenerative changes of the acromioclavicular joint. No acute findings. Patient updated on results. Steroid injection given today. Patient tolerated well. Precautions advised. Recommend icing tonight and tomorrow along with gentle ROM. Monitor and RTC for any sx of infection. Assessment & Plan (09/23/2023 8:06 AM VISUAL ASSOCIATE): Pain is persisting despite patient's supportive treatments. Patient would like to move forward with plan for steroid injection. Will get XR of the shoulder and get her scheduled for the injection later this week. Strongly recommend physical therapy. Patient is agreeable. Referral placed today. May use lidocaine cream for a little additional relief. Patient appreciative. Assessment & Plan (08/06/2023 9:39 AM VISUAL ASSOCIATE): History of chronic right shoulder pain. Did not spend as much time discussing this due to her knee and ankle pains. Pain seems to be worse with reaching and lifting, which she does a fair amount of at work. She does feel pain is exacerbated while at work. Seems to feel little bit better when she is off. Will do short course of prednisone, which may also help with her knee pain. Try to avoid offending activities, ice often, practice gentle stretching. RTC if pain is persisting or worsening. Could also consider cortisone injection. Chronic pain of both knees 06/17/2023 Overview (03/03/2025): Injection hx: R knee: 11/2023 (Ortho in [place]) Assessment & Plan (03/03/2025 12:28 PM CDT): Patient declines imaging today, stating they did at her Ortho appointment last year. No new trauma or injury. Right knee injection completed today -patient tolerated well. Advise icing and gentle range of motion today. RTC for any symptoms of infection. Patient would still like referral back to Ortho for further evaluation of her left knee. I am not entirely sure referral is necessary as she did see them last year. However I will place referral just in case. In the interim, patient can feel free to call Ortho and try to schedule appointment sooner. Assessment & Plan (08/06/2023 9:38 AM VISUAL ASSOCIATE): Chronic bilateral knee pain, with L > R. History of arthritis. Reports she has had at least a couple of cortisone injections followed by gel injection a few years ago while living in [place]. Pain is getting progressively worse. She does use a walker all of the time. Pain is worse after working and being on her feet. Stairs are nearly impossible. Denies any popping or locking but she does have giving way. Typically can catch herself with her walker. Has not had updated imaging in at least a couple of years. Of note, history of a scope on her right knee. Will get updated XR and plan for ortho referral, as patient is interested in total knee if recommended. SE and regimen reviewed. Assessment & Plan (06/17/2023 9:41 AM CDT): [facility]ax received from [facility] requiring information regarding the need for an assistive ambulatory device. Patient uses walker for chronic bilateral knee pain. States she has arthritis of both knees. Using the walker enables her to move around her home and complete regular activities of daily living such as cooking, ambulating to the restroom, and looking after her grandchildren. Without the walker, it is difficult for her to get around safely due to unsteadiness and risk of falling. Without assisitve device, she has to go much slower and may not be able to get to the restroom in a timely fashion. Furthermore, with her history of heart failure, COPD, and oxygen dependence, it is important for her to have a seat on her walker so she may easily sit with onset of SOB. History of anemia 06/13/2023 Assessment & Plan (06/17/2023 9:24 AM CDT): CBC pending. Assessment & Plan (06/13/2023 2:41 PM CDT): H&H a little low at 11.1 and 35. RBC is also slightly low at 4.09. B12 and folate are normal today. This may be more of an iron deficiency anemia. Patient states she has had anemia and low iron in the past. We will start her back on iron supplements. Recommend rechecking CBC and iron studies in 2 months. Broken heart syndrome 06/13/2023 Chronic leukopenia 06/13/2023 Assessment & Plan (06/13/2023 2:51 PM CDT): Last WBC in the ER on 04/10/2023 was 5.7. Historically, it looks like she may be chronically low - back in 07/2018 ranged from 2.7 - 3.6. Will recheck CBC in 2 mos along with iron studies. Hypoglycemia, unspecified 04/16/2023 Assessment & Plan (04/28/2024 2:12 PM CDT): Reports she is having less episodes of hypoglycemia. Follow with Dr. Winn at [facility]. Assessment & Plan (11/26/2023 3:52 PM CDT): Try to eat meals that contain carbohydrate, healthy fat and protein and focus on Fiber (avoid simple carbohydrates like white bread, white pasta, bakes goods, processed cereals. What does thus look like: Breakfast: Whole wheat toast with peanut butter. Oatmeal with fruit and nuts. Oatmeal with peanut butter. Egg white omelette with loads of veggies. Snacks: Her string cheese is a decent choice. Avoid the DOTZ pretzals as this is a simple carb. If she wants Dotz, she should also cut up some of the raw veggies she likes and pair them all with hummus. Could have an apple wit hpeanut butter or an apple and cheese. Could have a pice of fruit with a handful of nuts. Whole grain toast with avacado or hummus and veggies Supper meals and Leftover lunches would be well served by adding in salads with vinaigrette dressings and cooked veggies to her otherwise met and potatoes meals. Whole bakes potato ok if she is eating green vegetables with it wit plenty of fiber like thebroccoli and spinach and eating a protein with it. Other starchy vegetables like corn and carrots and squash should also be paired wit hfrotein and more fiber filled veggies like salad, cucumbers, tomatoes, spinach, and cawliflower. She can pair her protein with roasted sweet potatoe and wild rice or brown rice or quinoa. - If you blood sugar is less than 55, okay to correct with sugar tabs or juice (otherwise correct with mixed carb / protein / fat) If sugars are less than 55 mg/dL, treatment options can include: 4 glucose tablets cup of juice can of REGULAR soda. Recheck blood sugar in 15 minutes- if sugar remains below 55 mg/dL, repeat above options. Call your doctor or seek emergency medical treatment if you are unable to get your sugar above 70 mg/dL. If a low sugar occurs an hour or longer before your next meal or snack, follow the above treatment with a mixed protein and carbohydrate food such as: milk peanut butter sandwich crackers with cheese. Assessment & Plan (06/17/2023 9:32 AM CDT): Patient reports she has had hypoglycemia for years but would typically have warning signs which gave her enough time to correct sugars. However, recently, she is having more sudden drops without warning. She did end up in the ER recently with sugars in the 30s-40s. It sounds like patient is often going many hours without eating, as she just does not feel hungry. Her daughter states the lows seem to be worse after fasting for several hours, then eating a large meal. After doing a little bit of research, I do wonder if this is more of a dumping syndrome as a result of her gastric bypass. She has no known history of diabetes. We will check CMP today. Obviously, this is very concerning as hypoglycemia without correction can be fatal. Strongly encourage patient to look into life alert. Patient inquires if this could be covered by insurance. Advised I will look into it. I did reach out to pharmacy regarding possibility of CGM. Unfortunately, without diagnosis of diabetes, insurance will not cover this. I know there are some zzzd-ghn-qzbjidd watches/products that claimed to be able to detect low blood sugar. Patient is certainly welcome to try 1 of these products although I am not sure how accurate or reliable they are. We discussed, at length, the importance of proper nutrition. Patient will need to eat small frequent meals/snacks every couple of hours. Discussed minimizing simple carbohydrates and really focusing on protein-complex carb combination snacks to help maintain sugars. Glucose gel prescribed today and patient should carry this with her at all times. Family members should also be instructed on where to find the glucose gel and how to give it. For safety reasons, it would be best if someone could stay with patient and babysitting grandchildren may not be ideal right now. Refill of strips and lancets sent to pharmacy. Obstructive emphysema ([facility] 04/03/2023 Anticoagulant therapy 03/08/2023 Other bipolar disorder 03/08/2023 Hyperlipidemia, unspecified 03/08/2023 Dependence on continuous supplemental oxygen Chronic obstructive pulmonary disease, unspecifi ed 03/08/2023 Assessment & Plan (11/05/2024 4:46 PM CDT): Patient feeling improved since hospital although not back to baseline. Lungs sound good today. Enc to wear O2 more to minimize SOB. Call Pulm to notify of hospitalization - may want to see her sooner. Assessment & Plan (04/28/2024 2:22 PM CDT): Stable. Quit smoking 1 year ago, not currently requiring oxygen. Continue Trelegy inhaler. Assessment & Plan (03/09/2024 12:44 PM CDT): Reports increasing SOB that seems to be getting progressively worse. PE is unremarkable. Will send for burst of prednisone to avoid further progression and exacerbations. She reports good tolerance and benefit with prednisone in the past. Essential hypertension 03/08/2023 History of deep vein thrombosis 03/08/2023 Systolic heart failure ([facility]) Deep vein thrombosis ([facility]) 11/03/2020 History of Joaquin-en-Y gastric bypass 08/06/2018 Peripheral neuropathy 08/06/2018 Restless leg syndrome 08/06/2018 Neurogenic bladder 08/06/2018 Major depressive disorder 08/06/2018 Chronic low back pain 08/06/2018 Chronic hepatitis C virus infection ([facility]) 08/06/2018 Resolved Problems Problem Noted Date Diagnosed Date Resolved Date Sore throat 03/09/2024 04/08/2024 Assessment & Plan (03/09/2024 12:49 PM CDT): Declined POC testing. - Likely secondary to post-nasal drainage - No signs of infection currently. Plan: - Prednisone 40 mg once daily for 5 days to help with inflammation - Continue Flonase as prescribed - Recommend use of OTC nasal saline spray to provide lubrication and decrease irritation - Increase water intake - Humidification next to the bed at night - Monitor symptoms and follow up if worsening or development of new symptoms. Sinusitis 09/10/2023 09/23/2023 Assessment & Plan (09/10/2023 1:44 PM VISUAL ASSOCIATE): Based on the length of symptoms, she should be treated for acute bacterial sinusitis. Take Augmentin as prescribed with food. She should come back if symptoms do not resolve in the next few days. Acute left ankle pain 08/06/20232023 Assessment & Plan (08/06/2023 9:35 AM VISUAL ASSOCIATE): Acute left lateral ankle pain following a fall 2 weeks ago. XR in the ER was negative for any acute findings - likely a sprain. She was given an Ortho shoe which she did not find very helpful. Aircast splint provided today. Encouraged to practice gentle ROM, ice, elevate, and take OTC pain relievers as needed. Try to minimize offending activities. If pain is persisting, recommend PT. B12 deficiency 06/13/2023 07/29/2023 Assessment & Plan (06/17/2023 9:24 AM CDT): Will check B12 today. Consider injection therapy if low. Assessment & Plan (06/13/2023 2:43 PM CDT): History of B12 deficiency and patient previously was getting B12 injections due to history of gastric bypass. Believes her last injection was around February. B12 was actually WNL. We will continue to periodically monitor. Mammogram, screening 03/08/2023 023 NSTEMI (non-ST elevated myoc ardial infarction) ([facility]) 11/03/2020 11/05/2024 Encounters Date Type Department Care Team Description 05/04/2025 Results Follow-Up [address] [place] [address] Hailey Thurman FNP 04/29/2025 Interim Notes [address] [place] [address] Jamie Hollis 03/02/2025 11:20 AM CDT Office Visit [address] [phone] Hailey Thurman FNP 03/02/2025 10:30 AM CDT / Visits [address] [phone] AlejandroJanelle MURPHY 02/26/2025 Interim Notes [facility] [address] [phone] Rina Hollisira 02/18/2025 Results Follow-Up [facility] [address] [phone] Hailey Thurman FNP from Last 3 Months Immunizations Immunization Administration Dates Next Due DTAP (Infanrix) 01/07/2006 Flu, Cell Culture based, Pre servative Free, 6m+, Flucelvax 05/09/2023 Flu, Preservative Free 07/17/2018 HEP B, PED/ADOL (DQXXXAH-S-SOUY/RECOMBIVAX-PEDS) 10/17/1999 Hep B, Adult/Adol (GHEAEYY-B-OHLDJ/RECOMBIVAX-ADULT) 04/28/2024,05/18/1999,04/05/1999 Hep B, Unspecified 10/17/1999,05/18/1999, 999 INFLUENZA, SEASONAL, INJECTABLE 07/23/2018,07/31,05/27/1998 INFLUENZA, SEASONAL, INJECTA BLE, PRESERVATIVE FREE 06/16/2024 INFLUENZA, UNSPECIFIED 04/18/2017 Moderna COVID-19 (Spikevax), Mrna, Lnp-s, Pf, 50 Mcg/0.5 Ml, 12yr+ 06/17/2024 PNEUMOCOCCAL CONJUGATE PCV 2 0 (Prevnar 20) 06/16/2024 PNEUMOCOCCAL POLYSACCHARIDE PPV23 (Pneumovax 23) 05/27/1998 Pfizer COVID-19 (Comirnaty), Mrna, Lnp-s, Pf, Sharif-sucrose, 30 Mcg/0.3 Ml, 12yr+ 05/09/2023 TDAP 12/31/2023, 7,12/23/2006,01/07 ZOSTER VACCINE, RECOMBINANT (SHINGRIX) 8,11/28/2017 Family History Medical History Relation Name Comments Anxiety disorder Brother Breast cancer Mother Depression Mother Heart attack Mother Depression Sister Anxiety disorder Son Depression Son Relation Name Status Comments Brother Mother Sister Son Social History Tobacco Use Types Packs/Day Years Used Date Smoking Tobacco: Former Cigarettes Q uit: 2022 Passive Smoke Exposure: Past Smokeless Tobacco: Never Tobacco Cessation:Counseling Given: Yes Comments:Quit smoking 5 months ago. Alcohol Use Standard Drinks/Week Comments Not [...] Orientation Bisexual 04/12/2023 11 :14 AM PDT Last Filed Vital Signs Vital Sign Reading Time Taken Comments Blood Pressure 116/76 03/02/2025 11:17 AM CDT Pulse 66 03/02/2025 11:17 AM CDT Temperature 36.8 C (98.3 F) 03/02/2025 11:17 AM CDT Respiratory Rate 18 03/02/2025 11:17 AM CDT Oxygen Saturation 98% 03/02/2025 11:17 AM CDT Inhaled Oxygen Concentration - - Weight 128.4 kg (283 lb) 03/02/2025 11:17 AM CDT Height 171.5 cm (5' 7.5) 03/02/2025 11:17 AM CD T Body Mass Index 43.67 03/02/2025 11:17 AM CDT Plan of Treatment Upcoming Encounters Date Type Department Care Team (Late st Contact Info) Description 05/25/2025 10:30 AM CDT / Visits [facility] [address] [place] [phone] Alejandro [address]CLARYP [address] [place] [phone] 06/01/2025 2:40 PM CDT Office Visit [facility] [address] [place] [phone] Hailey Thurman, TOXICS PROGRAM OFFICER [address] [place] [phone] Health Maintenance Due Date Last Done Comments Diabetes Foot Exam 1967 HPV Screening 1967 Urine Albumin Creatinine Rat io Screening 1967 Retinopathy Screening 1980 Medicare Annual Wellness Visit 1985 Imm-Hepatitis A (1 of 2 - Ri sk 2-dose series) [address] Colonography 2012 FIT/gFOBT 2012 Fecal DNA 2012 Flexible Sigmoidoscopy 2012 Dental Examination 08/03/2024 08/01/2023 Imm-Influenza (#1) 2025 06/16/2024, 0 05/09/2023, 07/23/2018, Additional history exists Lipid Screening 04/28/2025 04/28/2024, 05/20, 11/03/2020 Serum Creatinine 04/28/2025 04/28/2024, , 11/03/2020, Additional history exists Hemoglobin A1c 05/04/2025 11/03/2020, 11/03/2020 Breast Cancer Screening (Mammogram) 05/07/2025 05/07/2024, 04/16/2023, 10/03/2018 Depression Monitoring 05/12/2025 02/09/2025 , 12/10/2024, 11/03/2024, Additional history exists Anxiety Screening 02/09/2026 02/09/2025 Tobacco Screening 03/02/2026 03/02/2025, 10/02/2018 Colonoscopy 08/19/2027 08/19/2017 Colorectal Cancer Screening 08/19/2027 Cervical Cancer Screening 01/03/2028 Pap + HPV 01/03/2028 01/02/2023 Dental FMX/Pano 08/03/2028 08/01/2023 Imm-DTaP/Tdap/Td (6 - Td or Tdap) 12/30/2033 12/31/2023, 02/12/2017, 12/23/2006, Additional history exists Imm-Zoster, Recombinant Completed 03/11/2018, 11/28 Imm-Hepatitis B Completed 04/28/2024, 09/20, 10/17/1999, Additional history exists Imm-Pneumococcal 50+ Completed 06/16/2024, 05/27/19 98 [id number] Completed 06/17/2024, 05/09/2023 Alcohol and Drug Screen Completed 12/11/19, 04/28/2024, 04/28/2024, Additional history exists Cervical Ablation/Cold-Knife Conization Discontinued Cervical Cryotherapy Discontinued Colposcopy Discontinued Endometrial Biopsy Discontinued Excision/Leep Discontinued HIV Screening Discontinued HPV Genotyping Discontinued LTBI Screening Discontinued Vaginal Pap Discontinued Vulvoscopy Discontinued Goals Goal Patient Goal Type Associated Problems Recent Progress Patient-Stated? Author Exercise 3x per week (30 min per time) Exercise No Arabella Young Procedures Procedure Name Priority Date/Time Associated Diagnosis Comments REFERRAL SCANNED DOCUMENT 04/26/2025 2:00 AM CDT REFERRAL TO ORTHOPEDICS Routine 04/22/2025 2:00 AM CDT Chronic pain of both knees MEDICATIONS SCANNED DOCUMENT 02/22/2025 2:00 AM CDT SCREENING MAMMOGRAPHY BI 2-VIEW BREAST INC CAD Routine 05/07/2024 2:00 AM CDT Screening mammogram for breast cancer COMPREHENSIVE METABOLIC PANEL Routine 04/28/2024 2:18 PM CDT Diabetes mellitus screening LIPID PANEL Routine 04/28/2024 2:18 PM CDT Hyperlipidemia, unspecified hyperlipidemia type PANORAMIC RADIOGRAPHIC IMAGE Routine 08/01/2023 9:00 AM VISUAL ASSOCIATE Encounter for dental examination Full COMP ORAL EVALUATION - NEW/ESTABLISHED PATIENT Routine 08/01/2023 9:00 AM VISUAL ASSOCIATE Encounter for dental examination from Last 3 Months or Most Recently Relevant to Health Maintenance Results * REFERRAL SCANNED DOCUMENT (04/26/2025 2:00 AM CDT) 04/26/2025 2:00 AM CDT Result [facility] Hailey Thurman TOXICS PROGRAM OFFICER SCAN REFERRAL Final Result * REFERRAL TO ORTHOPEDICS (04/22/2025 2:00 AM CDT) 04/22/2025 2:00 AM CDT Result [facility] Hailey Thurman [facility] REFERRAL Final Result * MEDICATIONS SCANNED DOCUMENT (02/22/2025 2:00 AM CDT) 02/22/2025 2:[address] [facility] Provider Default SCAN MEDS OTHER ORDERS Fi nal Result * SCREENING MAMMOGRAPHY BI 2-VIEW BREAST INC CAD (05/07/2024 2:00 AM CDT) 05/07/2024 2:00 AM CDT Result [facility] Hailey Thurman [facility] IMG MAMMO Final Result * LIPID PANEL (04/28/2024 2:18 PM CDT) CHOLESTEROL, TOTAL 173 100 - 199 mg/dL [facility] TRIGLYCERIDES 75 0 - 149 mg/dL [facility] HDL CHOLESTEROL 75 >39 mg/dL [facility] CHOLESTEROL SAMANTHA 14 5 - 40 mg/dL [facility] LDL CHOL [facility] ([facility]) 84 0 - 99 mg/dL [facility] Blood Blood / Unknown 04/28/2024 2 :18 PM CDT 04/28/2024 Result [facility] Hailey Thurman [facility] - BLOOD DRAW Final Result Performing Organization Address City/[facility]/ZIP Co de Phone Number [facility] [address] [address] * (ABNORMAL) COMPREHENSIVE METABOLIC PANEL (04/28/2024 2:18 PM CDT) [facility] GLUCOSE, SERUM 114(H) 70 - 99 mg/dL [facility] BUN 10 6 - 24 mg/dL [facility] CREATININE, SERUM 0.53(L) 0.57 - 1.00 mg/dL [facility] eGFR 108 >59 mL/min/1.7 3 [facility] BUN/CREATININE RATIO 19 9 - 23 [facility] SODIUM, SERUM 129(L) 134 - 144 mmol/L [facility] POTASSIUM, SERUM 4.7 3.5 - 5.2 mmol/L [facility] CHLORIDE, SERUM 91(L) 96 - 106 mmol/L [facility] CARBON DIOXIDE, TOTAL 21 20 - 29 mmol/L [facility] CALCIUM, SERUM 8.7 8.7 - 10.2 mg/dL [facility] PROTEIN, TOTAL, SERUM 6.3 6.0 - 8.5 g/dL [facility] ALBUMIN, SERUM 4.3 3.8 - 4.9 g/dL [facility] GLOBULIN, TOTAL 2.0 1.5 - 4.5 g/dL [facility] BILIRUBIN, TOTAL 0.3 0.0 - 1.2 mg/dL [facility] ALKALINE PHOSPHATASE, SERUM 94 44 - 121 IU/L [facility] AST (SGOT) 20 0 - 40 IU/L [facility] ALT (SGPT) 17 0 - 32 IU/L [facility] Blood Blood / Unknown 04/28/2024 2 :18 PM CDT 04/28/2024 [facility] - BLOOD DRAW Final Result Performing Organization Address City/[facility]/ZIP Co de Phone Number [facility] [address] from Last 3 Months or Most Recently Relevant to Health Maintenance Insurance [facility] [employer] MEDIC[facility] Advance Directives Documents on File Type Date Recorded 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
[2025-05-15 10:18] VITALS: BP 146/94; PULSE 79; RESP 20; TEMP 36.2; O2SAT 93; BMI 44.6
--- NOTE | 2025-05-15 10:29 | CRLHL7_ITS ---
For Patients: As a result of the Cures Act, medical imaging exams and procedure reports are released immediately into your electronic medical record. You may view this report before your referring provider. If you have questions, please contact your health care provider. INDICATION: Injury. Pain and swelling. TECHNIQUE: Left foot three views. COMPARISON: None. FINDINGS: Bone demineralization. Acute nondisplaced fractures of the distal 2nd and 3rd metatarsals in the region of the head/neck. No additional evidence of fracture. Mild degenerative changes scattered throughout the foot. Soft tissue swelling. No radiopaque foreign body. IMPRESSION: Distal 2nd and 3rd metatarsal fractures. Dictated by Miguel Lujan MD @ 05/15/2025 11:05:00 AM (Electronically Signed)
--- OUTSIDE RECORDS SUMMARY | 2025-05-15 10:54 | XMS_ITS | Clinical Summary ---
[facility] Organization [facility] Address [address] [place] [address] Care Team Providers Care Network Support Administrator Name Role Phone Hailey Thurman KEMI Primary Care Provider [phone] Medications predniSONE (DELTASONE) 20 mg tablet TAKE 2 TABLETS DAILY FOR 5-DAYS WITH FOOD OR MILK 10 tablet 10/29/2024 Active Social History Tobacco Use Types Packs/Day Years Used Date Smoking Tobacco: Never Assessed Comments Unknown Sex and Gender Information Value Date Recorded Sex Assigned at Not on file Legal Sex Female 9:08 AM EST Gender Identity Not on file Sexual Orientation Not on file Plan of Treatment Health Maintenance Due Date Last Done Comments Hepatitis A Vaccines (1 of 2 - Risk 2-dose series) 1986 Cervical Cancer Screening: Pap Smear 1988 Depression Screening 08/19/2024 Colorectal Cancer Screening: Colonoscopy 11/11/2024 HIV Screening 11/11/2024 Osteoporosis Screening (Bone Density Screening) 11/11/2024 Social Influencers of Health Screening 11/11/2024 Influenza Vaccine (#1) 2025 , 05/09/2023, 07/23/2018, Additional history exists Hypertension/CHF/CAD Annual BMP Blood Test 04/28/2025 04/28/2024 Breast Cancer Screening 05/07/2026 05/07/20 24, 05/07/2024, 04/16/2023 Cholesterol Screening (Lipid Panel) 04/28/2029 04/28/2024, 04/28/2024, 06/12/2023, Additional history exists DTaP,Tdap,and Td Vaccines (6 - Td or Tdap) 12/30/2033 12/31/2023, 02/12/2017, 12/23/2006, Additional history exists RSV Immunization Adult Patients (1 - 1-dose 75+ series) 2042 Zoster Vaccines Completed 03/11/2018, 11/28/2017 Hepatitis B Vaccines Completed 04/28/2024, 10/17/1999, 05/18/1999, Additional history exists Pneumococcal Vaccine: 50+ Years Completed 06/16/2024, 05/27/1998 COVID-19 Vaccine Completed 06/17/2024, 05/09/2023 Hepatitis C Screening Completed 02/09/2025, 025 HIB Vaccines Aged Out No longer eligi ble based on patient's age to complete this topic HPV Vaccines Aged Out No longer eligi ble based on patient's age to complete this topic IPV Vaccines Aged Out No longer eligi ble based on patient's age to complete this topic MMR Vaccines Aged Out No longer eligi ble based on patient's age to complete this topic Meningococcal ACWY Vaccine Aged Out N o longer eligible based on patient's age to complete this topic Meningococcal B Vaccine Aged Out No l onger eligible based on patient's age to complete this topic RSV Immunization Patients Under 20 months Aged Out No longer eligible based on patient's age to complete this topic Varicella Vaccines Aged Out No longer eligible based on patient's age to complete this topic Procedures Procedure Name Priority Date/Time Associated Diagnosis Comments MA MAMMO DIGITAL SCREENING BILAT Routine 05/07/2024 10:46 AM CDT from Last 3 Months or Most Recently Relevant to Health Maintenance Results * MA MAMMO DIGITAL SCREENING BILAT (05/07/2024 10:46 AM CDT) Anatomical Region Laterality Modality Mammography 05/07/2024 10:3 0 AM CDT Narrative 05/08/2024 2:17 PM CDT [place], [place] Routine screening mammography with tomosynthesis. COMPARISON:04/16/2023 TECHNIQUE: Standard CC and MLO imaging of both breasts was performed. CAD and tomosynthesis was used. FINDINGS: There are scattered areas of fibroglandular density. No new or dominant mass, suspicious calcifications, or architectural distortions. Impression: Stable exam without mammographic evidence of malignancy. BI-RADS 2 Cliff Alberts MD [facility]. [address] [place] [address]. [phone] OVERALL FINAL ASSESSMENT BIRADS CATEGORY: 2-Benign finding RECOMMENDATION: Normal interval follow-up FINAL REPORT Dictated By: Cliff Alberts MD 05/08/2024 14:15 Assigned Physician: Cliff Alberts MD Reviewed and Electronically Signed By: Cliff Alberts MD 05/08/2024 14:17 Transcribed by: ANSLEY 05/08/2024 14:15 Technologist: YOUNG Procedure Note Cliff Alberts MD - 10/31/2024 [place], [place] Routine screening mammography with tomosynthesis. COMPARISON:04/16/2023 TECHNIQUE: Standard CC and MLO imaging of both breasts was performed. CADand tomosynthesis was used. FINDINGS: There are scattered areas of fibroglandular density. No new or dominant mass, suspicious calcifications, or architecturaldistortions. Impression: Stable exam without mammographic evidence of malignancy. BI-RADS 2 Cliff Alberts MD [facility]. [address] [place] [address]. [phone] OVERALL FINAL ASSESSMENT BIRADS CATEGORY: 2-Benign finding RECOMMENDATION: Normal interval follow-up FINALREPORT Dictated By: Cliff Alberts MD 05/08/2024 14:15 Assigned Physician: Cliff Alberts MD Reviewed and Electronically Signed By: Cliff Alberts MD 4:17 Transcribed by: ANSLEY 05/08/2024 14:15 Technologist: YOUNG [facility] IMG BI PROCEDURES Final Result from Last 3 Months or Most Recently Relevant to Health Maintenance Care Teams Network Support Administrator Relationship Specialty Start Date End Date Hailey Thurman FNP [facility] [place] [address] PCP - General 12/28/24
--- OUTSIDE RECORDS SUMMARY | 2025-05-15 10:54 | XMS_ITS | Clinical Summary ---
Author Organization [facility] Address [address] [place] [address] Care Team Providers Care Landmen Name Role Phone Anai Preciado MD Unavailable [phone] Hailey Thurman Primary Care Provider [phone] Source Comments This disclosure is being made pursuant to the [employer] program and maynot contain all information available regarding this patient.[facility] Allergies No known active allergies Medications albuterol (PROVENTIL) (2.5 MG/3ML) 0.083% nebulizer solution Inhale 2.5 mg into the lungs as needed. 08/07/2018 Active albuterol 108 (90 Base) MCG/ACT inhaler Inhale 2 puffs into the lungs as needed. 02/14/2022 Active Cyanocobalamin 1000 MCG/ML KIT Inject 1,000 mcg into the muscle every 30 (thirty) days. 06/15/2018 Active furosemide (LASIX) 20 MG tablet Take 20 mg by mouth daily. 05/16/2018 Active alendronate (FOSAMAX) 70 MG tablet Take 70 mg by mouth once a week. 02/01/2023 Active Roflumilast 250 MCG TABS Take 250 mcg by mouth daily. Active lisinopril 2.5 MG tablet Take 2.5 mg by mouth daily. Active loratadine (CLARITIN) 10 MG tablet Take 10 mg by mouth daily as needed for Allergies. Active rosuvastatin (CRESTOR) 5 MG tablet Take 5 mg by mouth daily. Active rivaroxaban (XARELTO) 20 MG TABS tablet Take 20 mg by mouth daily. Active Roflumilast (Daliresp) 250 MCG TABS Take 250 mcg by mouth daily. Active fluticasone NASAL (FLONASE) 50 MCG/ACT nasal spray 2 sprays by Nasal route daily. to each nostril Active pramipexole (MIRAPEX) 0.25 MG tablet Take 0.25 mg by mouth 2 (two) times daily. Active ARIPiprazole (ABILIFY) 10 MG tablet Take 10 mg by mouth 2 (two) times daily. Active carvedilol (COREG) 3.125 MG tablet Take 3.125 mg by mouth 2 (two) times daily with meals. Active DULoxetine (CYMBALTA) 60 MG capsule Take 60 mg by mouth 2 (two) times daily. Active pramipexole (MIRAPEX) 0.75 MG tablet Take 0.75 mg by mouth nightly. Active cyclobenzaprine (FLEXERIL) 5 MG tablet Take 5 mg by mouth nightly. Active gabapentin (NEURONTIN) 300 MG capsule Take 1,200 mg by mouth 3 (three) times daily. Active LORazepam (ATIVAN) 0.5 MG tablet Take 0.5 mg by mouth every 4 (four) hours as needed for Anxiety. Active Fluticasone-Ume clidin-Vilant (Trelegy Ellipta) 200-62.5-25 MCG/ACT AEPB inhaler Inhale 1 puff into the lungs daily. Active Iron-Vitamin C 65-125 MG TABS Take by mouth. Active Multiple Vitamins-Minera ls (WOMENS 50+ MULTI VITAMIN PO) Take by mouth. Active acetaminophen (TYLENOL) 500 MG tablet Take by mouth every 6 (six) hours as needed for Pain. Active pantoprazole (PROTONIX) 20 MG tablet Take 20 mg by mouth daily. Active traZODone (DESYREL) 50 MG tablet Take 50 mg by mouth nightly. Active Family History Medical History Relation Name Comments Heart disease Mother Relation Name Status Comments Mother Social History Tobacco Use Types Packs/Day Years Used Date Smoking Tobacco: Former Cigarettes Q uit: 04/05/2023 Smokeless Tobacco: Never Alcohol Use Standard Drinks/Week Comments Yes 0 (1 standard drink = 0.6 oz pur e alcohol) rare PHQ-2 Answer Date Recorded PHQ-2 Score 0 11/07/2023 Comments Unknown Sex and Gender Information Value Date Recorded Sex Assigned at Not on file Legal Sex Female 1:04 PM CDT Gender Identity Not on file Sexual Orientation Not on file Last Filed Vital Signs Vital Sign Reading Time Taken Comments Blood Pressure 102/62 04/16/2023 1:11 PM CDT Pulse 72 04/16/2023 1:11 PM CDT Temperature - - Respiratory Rate - - Oxygen Saturation - - Inhaled Oxygen Concentration - - Weight 117.7 kg (259 lb 6.4 oz) 04/16/2023 1:11 PM CDT Height 170.2 cm (5' 7) 04/16/2023 1:11 PM CDT Body Mass Index 40.63 04/16/2023 1:11 PM CDT Plan of Treatment Health Maintenance Due Date Last Done Comments Breast Cancer Screening-Mammogram 1967 CT Colonography 1967 Cervical Cancer Screening 1967 Colonoscopy 1967 Colorectal Cancer Screening 1967 Fecal DNA Test 1967 HPV 1967 Lab-Cholesterol Screening 1967 Lab-Hepatitis C Screening 1967 Sigmoidoscopy 1967 Hepatitis B Vaccine (1 of 3 - 19+ 3-dose series) 1986 Tetanus/Pertussis Vaccine Teen/Adult (1 - Tdap) 1986 FOBT/FIT 1987 Pap Smear 1988 First Medicare Annual Wellne ss (AWV) 06/18/2008 Pneumococcal Vaccines 50+ (1 of 1 - PCV) 2017 Zoster (Shingles) Vaccine 50 + (1 of 2) 2017 COVID-19 Vaccine ( - 2023-2 5 season) 2025 Influenza Vaccine (#1) 2025 RSV Adult (1 - 1-dose 75+ series) 2042 HIB Vaccine Aged Out No longer eligi ble based on patient's age to complete this topic HPV Vaccine (9-26yo & Shared Decision 27-45yo) Aged Out No longer eligible b ased on patient's age to complete this topic Hepatitis A Vaccine Aged Out No longe r eligible based on patient's age to complete this topic IPV Vaccine Aged Out No longer eligi ble based on patient's age to complete this topic Meningococcal Conjugate Vaccine Aged Out No longer eligible based on patient's age to complete this topic RSV < 20 Months Aged Out No longer el igible based on patient's age to complete this topic Goals Goal Patient Goal Type Associated Problems Recent Progress Patient-Stated? Author Blood Pressure < 140/90 Blood Pressure 102/62( 023 1:11 PM CDT) No Keiko Turk, RN Insurance MEDICARE Care Teams Landmen Relationship Specialty Start Date End Date Hailey Thurman ARNP [address] [place] [address] PCP - General Nurse Practitioner 04/16/23 Anai Preciado MD [address] [facility] [address] [place] [address] Consulting Physician Cardiology 04/16/23
--- NOTE | 2025-05-15 11:11 | ED.GENADULT ---
HPI - General Adult General Chief complaint: Extremity Pain/Injury, Lower Stated complaint: Hurt left foot Time Seen by Provider: 05/15/25 10:28 History of Present Illness HPI narrative: Patient is a 59-year-old woman who unfortunately has footdrop on the left. This caused her to drag her foot last night and she inadvertently been today digits 2 and 3 backwards. X-ray series done today shows a minimally displaced fractures of digits 2 and 3. No other acute abnormalities. Patient did not fall. She has no other injuries. She has no skin breakdown. She does have some bruising and swelling and pain is moderate. Related Data Home Medications ?Medication ?Instructions ?Recorded ?Confirmed albuterol sulfate 2.5 mg/3 mL 2.5 mg inhalation TID PRN 02/26/22 05/15/25 (0.083 %) solution for nebulization albuterol sulfate 90 mcg/actuation 2 puff inhalation Q4H PRN 02/26/22 01/02/23 aerosol inhaler aripiprazole 10 mg tablet 5 mg PO BID 02/26/22 01/02/23 cyanocobalamin (vitamin B-12) 1,000 mcg IM Q30D 02/26/22 01/02/23 1,000 mcg/mL injection solution cyclobenzaprine 5 mg tablet 5 mg PO HS PRN 02/26/22 05/15/25 gabapentin 300 mg capsule 1,200 mg PO TID 02/26/22 05/15/25 lisinopril 2.5 mg tablet 2.5 mg PO DAILY 02/26/22 05/15/25 multivitamin 1 tab PO DAILY 02/26/22 05/15/25 rosuvastatin 5 mg tablet 5 mg PO DAILY 02/26/22 05/15/25 roflumilast 500 mcg tablet 500 mcg PO DAILY 02/27/22 05/15/25 (Daliresp) acetaminophen 500 mg tablet 500 mg PO Q6H PRN 03/07/22 05/15/25 (Tylenol Extra Strength) calcium carbonate 750 1 tab PO Q2-4H PRN 03/07/22 01/02/23 mg-simethicone 80 mg chewable tablet ([place] Heartburn-Gas) carvedilol 3.125 mg tablet 3.125 mg PO BID 03/07/22 05/15/25 ferrous fumarate 200 mg (65 mg 1 tab PO DAILY 09/21/22 01/02/23 iron)-vit C 25 mg tablet,extend release (Sindy-Sequels (iron-vit c)) fluticasone fur. 200 mcg-umeclid 1 inh inhalation DAILY 09/21/22 05/15/25 62.5 mcg-vilant 25 mcg inhalat.powder (Trelegy Ellipta) pramipexole 0.25 mg tablet 0.25 mg PO BID@09,16 09/21/22 05/15/25 pramipexole 0.75 mg tablet 0.75 mg PO HS 09/21/22 05/15/25 pantoprazole 20 mg tablet,delayed 20 mg PO QAM 05/15/25 05/15/25 release Previous Rx's ?Medication ?Instructions ?Recorded loratadine 10 mg tablet 10 mg PO DAILY #90 tabs 11/13/22 ipratropium 0.5 mg-albuterol 3 mg 1 ml inhalation Q6-8H PRN 01/01/23 (2.5 mg base)/3 mL nebulization shortness of breath #180 mL soln fluticasone propionate 50 2 spray intranasal DAILY #16 grams 01/10/23 mcg/actuation nasal spray,suspension alendronate 70 mg tablet 70 mg PO QWEEK #12 tabs 02/01/23 rivaroxaban 20 mg tablet (Xarelto) 20 mg PO DAILY DVT #90 tabs 03/26/23 furosemide 20 mg tablet 20 mg PO DAILY #90 tabs 12/06/23 Allergies Allergy/AdvReac Type Severity Reaction Status Date / Time cephalexin Allergy Intermediate Hives Verified 05/15/25 10:25 morphine Allergy Intermediate Hives Verified 05/15/25 10:25 lactose AdvReac Intermediate GI upset Verified 05/15/25 10:25 Review of Systems Status of ROS: Reports: 10 or more systems reviewed and unremarkable except as noted in History and below [facility] Medical History DVT (deep vein thrombosis) in ?O22.30 - Deep phlebothrombosis in , unspecified trimester (ICD-10) Stress-induced cardiomyopathy ?I51.81 - Takotsubo syndrome (ICD-10) Radial neck fracture ?S52.133A - Displaced fracture of neck of unspecified radius, initial encounter for closed fracture (ICD-10) History of suicide attempt (2017) ?Z91.51 - Personal history of suicidal behavior (ICD-10) History of hepatitis C virus infection (2017) ?Z86.19 - Personal history of other infectious and parasitic diseases (ICD-10) History of drug abuse ?F19.11 - Other psychoactive substance abuse, in remission (ICD-10) Surgical History Status post endovenous radiofrequency ablation (RFA) of saphenous vein (07/2017) ?Z98.890 - Other specified postprocedural states (ICD-10) History of tubal ligation (2004) ?Z98.51 - Tubal ligation status (ICD-10) History of open reduction and internal fixation (ORIF) procedure (1996) ?Z98.890 - Other specified postprocedural states (ICD-10) History of endometrial ablation (01/25/05) ?Z98.890 - Other specified postprocedural states (ICD-10) History of cone biopsy of cervix (1987) ?Z98.890 - Other specified postprocedural states (ICD-10) History of cholecystectomy ?Z90.49 - Acquired absence of other specified parts of digestive tract (ICD-10) History of section (06/23/87) ?Z98.891 - History of uterine scar from previous surgery (ICD-10) History of arthroscopy of right knee (09/02/15) ?Z98.890 - Other specified postprocedural states (ICD-10) Cauda equina syndrome (2001) ?G83.4 - Cauda equina syndrome (ICD-10) Family History Other Coronary artery disease Social History Narrative: Two daughters are healthcare power of commercial litigation attorney. Code status is full. Lives alone, [place], Disabled, 4 kids, , smokes, rare EtOH, PCP [facility], [facility] Highest level of school completed/degree received: Associate degree: occupational, technical, vocational program Smoking Status: Current some day smoker (patient using chantix) What tobacco products do you use: cigarettes Years smoked: 40 Smoking quit date/years: <= 15 years ago Do you use any of these nicotine containing products: None Second hand tobacco smoke exposure: No How often do you have a drink containing alcohol: monthly or less Alcohol type: hard liquor How often do you have six or more drinks on one occasion: Never AUDIT-C Alcohol total score: 1 Non-prescribed substance use: denies use Caffeine: Yes (a lot of coffee) service: No Exam Narrative: Exam Narrative: EXAM GENERAL: Patient appears comfortable and well. EYES: No scleral icterus. ENT: Tympanic membranes and oropharynx normal. THYROID: no thyroid nodules or thyromegaly. LYMPH: No supraclavicular or cervical lymphadenopathy. SKIN: Visible skin seen during exam normal or with benign process only. EXT: Swelling and mild ecchymosis noted over digits 2 and 3 left foot. HEART: Regular rate and rhythm with no murmurs, rubs, or gallops. LUNGS: Clear to auscultation bilaterally with no crackles or wheezes. ABD: Soft, non tender, non distended. PSYCH: Good eye contact, speech is not pressured. Const: Vital Signs, click to edit/add: Vital Signs - 24 hr 05/15/25 10:18 Temperature 97.2 F L Pulse Rate [Pulse Oximeter] 79 Respiratory Rate 20 Blood Pressure [Ri ght Upper Arm] 146/94 H Pulse Oximetry 93 Oxygen Delivery Me thod Room Air Course Vital Signs Vital signs: Initial Vital Signs Temperature 97.2 F L 05/15/25 10:18 Temperature Source Temporal Artery Scan 05/15/25 10:18 Pulse Rate 79 05/15/25 10:18 Respiratory Rate 20 05/15/25 10:18 Blood Pressure 146/94 H 05/15/25 10:18 Blood Pressure Mean 111 H 05/15/25 10:18 Blood Pressure Position High-Fowlers 05/15/25 10:18 Pulse Oximetry 93 05/15/25 10:18 Oxygen Delivery Method Room Air 05/15/25 10:18 Vital Signs Temperature 97.2 F L 05/15/25 10:18 Pulse Rate 79 05/15/25 10:18 Respiratory Rate 20 05/15/25 10:18 Blood Pressure 146/94 H 05/15/25 10:18 Pulse Oximetry 93 05/15/25 10:18 Oxygen Delivery Method Room Air 05/15/25 10:18 Temperature 97.2 F L 05/15/25 10:18 Pulse Rate 79 05/15/25 10:18 Respiratory Rate 20 05/15/25 10:18 Blood Pressure 146/94 H 05/15/25 10:18 Pulse Oximetry 93 05/15/25 10:18 Oxygen Delivery Method Room Air 05/15/25 10:18 Medical Decision Making MDM Narrative Medical decision making narrative: Left foot fracture digits 2 and [address] her in stiff shoe recommended ice Tylenol Motrin follow-up with her primary physician as needed. Advancement of activity as tolerated. Discharge Plan Discharge Clinical Impression: Foot fracture Patient Disposition: Home, Self-Care Condition: Stable Instructions: Foot Fracture in Adults (ED) Additional Instructions: Ice Stiff shoe Tylenol Advanced activity as tolerated Follow-up with your doctor as needed. Activity Level: No Restrictions Discharge Diet: Regular Prescriptions: No Action rosuvastatin 5 mg tablet 5 mg PO DAILY cyclobenzaprine 5 mg tablet 5 mg PO HS PRN aripiprazole 10 mg tablet 5 mg PO BID albuterol sulfate 90 mcg/actuation HFA aerosol inhaler 2 puff inhalation Q4H PRN gabapentin 300 mg capsule 1,200 mg PO TID cyanocobalamin (vitamin B-12) 1,000 mcg/mL solution 1,000 mcg IM Q30D albuterol sulfate 2.5 mg /3 mL (0.083 %) solution for nebulization 2.5 mg inhalation TID PRN multivitamin Tablet 1 tab PO DAILY lisinopril 2.5 mg tablet 2.5 mg PO DAILY roflumilast [Daliresp] 500 mcg tablet 500 mcg PO DAILY carvedilol 3.125 mg tablet 3.125 mg PO BID acetaminophen [Tylenol Extra Strength] 500 mg tablet 500 mg PO Q6H PRN [place] Heartburn-Gas 750-80 mg tablet,chewable 1 tab PO Q2-4H PRN Rx Instructions: do not exceed 6 tabs per 24 hrs Trelegy Ellipta 200-62.5-25 mcg blister with device 1 inh INHALATION DAILY pramipexole 0.75 mg tablet 0.75 mg PO HS Patient Comments: TAKE 1 TABLET BY MOUTH AT BEDTIME Sindy-Sequels (iron-vit c) 200 mg (65 mg iron)-25 mg tablet extended release 1 tab PO DAILY pramipexole 0.25 mg tablet 0.25 mg PO BID@09,16 pantoprazole 20 mg tablet,delayed release (DR/EC) 20 mg PO QAM loratadine 10 mg tablet 10 mg PO DAILY Qty: 90 3RF ipratropium-albuterol 0.5 mg-3 mg(2.5 mg base)/3 mL solution for nebulization 1 ml inhalation Q6-8H PRN (Reason: shortness of breath) Qty: 180 3RF fluticasone propionate 50 mcg/actuation spray,suspension 2 spray intranasal DAILY Qty: 16 11RF alendronate 70 mg tablet 70 mg PO QWEEK Qty: 12 4RF Xarelto 20 mg tablet 20 mg PO DAILY Qty: 90 0RF furosemide 20 mg tablet 20 mg PO DAILY Qty: 90 0RF Follow Up/Referrals: Provider,Not a Local [Primary Care Provider, Family Practice] Stand Alone Forms: [facility] Info Instructions
--- OUTSIDE RECORDS SUMMARY | 2025-05-15 11:16 | XMS_ITS | CCD ---
Author Organization Unknown Care Team Providers Care Astrochemist Name Role Phone Radiology Transcriptionist, [place] Primary Care Provider Unava ilable Unavailable Chronic Care Management Unavaila ble Summary Purpose DataExchange Insurance Providers Payer name Policy type / Coverage type Covered constitution party ID Effective Begin Date Effective End Date [employer] [id number] 2021 Unkn own Family History Family History data not found Medication Administered No Medication Administered data Reason For Visit No Reason For Visit data
--- OUTSIDE RECORDS SUMMARY | 2025-05-15 11:54 | XMS_ITS | CCD ---
Author Organization Unknown Care Team Providers Care Clinical Pharmacy Manager Name Role Phone Putty Tinter Maker, [place] Primary Care Provider Unava ilable Unavailable Chronic Care Management Unavaila ble Summary Purpose DataExchange Insurance Providers Payer name Policy type / Coverage type Covered constitution party ID Effective Begin Date Effective End Date [employer] [id number] 2021 Unkn own Family History Family History data not found Medication Administered No Medication Administered data Reason For Visit No Reason For Visit data
--- OUTSIDE RECORDS SUMMARY | 2025-05-15 11:54 | XMS_ITS | CCD ---
Author Organization Unknown Care Team Providers Care Ripsawyer Name Role Phone Sole Tacker, [place] Primary Care Provider Unava ilable Unavailable Chronic Care Management Unavaila ble Summary Purpose DataExchange Insurance Providers Payer name Policy type / Coverage type Covered democrat ID Effective Begin Date Effective End Date [employer] Commercial Insurance [id number] 2021 Unkn own Family History Family History data not found Medication Administered No Medication Administered data Reason For Visit No Reason For Visit data
== END 2025-05-15 11:45 | disposition home or self-care (01) ==
PROVIDERS: Emergency Provider Internal Medicine
DX: S92.592A Other fracture of left lesser toe(s), initial encounter for closed fracture (principal); X50.1XXA Overexertion from prolonged static or awkward postures, initial encounter
CPT/HCPCS: 73630; 99283